=== PATIENT | male | born 1965 | race Caucasian/White ===

== ENCOUNTER 2017-05-29 08:36 | Emergency (ER) | payer BC, OTHER ==
[~2017-05-29] VITALS: Ht 172.7 cm; Wt 113.4 kg
[~2017-05-29 08:36] MED LIST: ATEN-41 PO; GABA-531 PO
--- NOTE | 2017-05-29 08:42 | NUR ---
Placed in room 3. Placed on case monitor, blood pressure machine and pulse oximeter. To gown for exam. Side rails up. Report given to Cherelle KASPER.
[2017-05-29 08:43] VITALS: BP_SYST 145
--- NOTE | 2017-05-29 08:51 | NUR ---
RESP THERAPIST AT BEDSIDE FOR TREATMENTS
--- NOTE | 2017-05-29 08:51 | NUR ---
DR MIRELES AT BEDSIDE FOR EVALUATION
[2017-05-29] MEDS ORDERED: methylPREDNISolone SOD SUCC/PF 62.5 MG/ML VIAL IVP ONE (09:00)
[2017-05-29] MEDS ORDERED: MAGNESIUM SULFATE 1 GM in NS 50 ML IV ONE (09:00)
[2017-05-29] MEDS ORDERED: ALBUTEROL SULFATE 0.083% 2.5 MG/3 ML VIAL.NEB IH ONE (09:00)
[2017-05-29] MEDS ORDERED: IPRATROPIUM BROM 0.5 MG/2.5 ML VIAL.NEB (ATROVENT) IH ONE (09:00)
[2017-05-29] MEDS ORDERED: cefTRIAXone 1 GM IVPB PREMIX 50 ML IV ONE (09:00)
[2017-05-29] MEDS ORDERED: MAGNESIUM SULFATE 1 GM/2 ML VIAL ONE (09:02)
--- NOTE | 2017-05-29 09:15 | NUR ---
NO CHANGES, RESTING QUIETLY.
[2017-05-29 09:34] LABS: BASOPHILS % (AUTO) 0.3 % (0.0-2.0); EOSINOPHILS # (AUTO) 1.2 K/uL (0.0-0.4); EOSINOPHILS % (AUTO) 10.3 % (0.0-4.0); HEMATOCRIT 41.2 % (36-54); HEMOGLOBIN 13.4 g/dL (14.0-18.0); LYMPHOCYTES # (AUTO) 1.4 K/uL (1.0-5.5); MEAN CORPUSCULAR HEMOGLOBIN 30 pg (27-31); MEAN CORPUSCULAR HGB CONC 33 % (32-36); MEAN CORPUSCULAR VOLUME 93 fL (79.0-98.0); MONOCYTES # (AUTO) 1.3 K/uL (0.0-1.0); MONOCYTES % (AUTO) 11.7 % (1.7-9.3); NEUTROPHILS # (AUTO) 7.5 K/uL (1.8-7.7); NEUTROPHILS % (AUTO) 65.7 % (40.0-70.0); PLATELET COUNT (AUTO) 323 K/uL (130-430); RED BLOOD CELL COUNT(AUTO) 4.45 MIL/uL (4.2-6.2); RED CELL DISTRIBUTION WIDTH 14.9 % (9.0-15.0); WHITE BLOOD COUNT (AUTO) 11.4 K/uL (4.8-10.8)
[2017-05-29 09:48] LABS: CALCIUM 9.5 mg/dL (8.4-11.0); CREATININE 0.9 mg/dL (0.55-1.30); POTASSIUM 4.9 mmol/L (3.5-5.1)
--- NOTE | 2017-05-29 10:40 | NUR ---
DR MIRELES AT BEDSIDE SPEAKING WITH PT.
[2017-05-29 11:10] VITALS: BP_SYST 132
--- NOTE | 2017-05-29 11:11 | NUR ---
Patient does not wish to proceed with medical care recommended by DR MIRELES. Patient given information related to possible complications, up to and including , which could occur as a result of leaving hospital at this time. Patient verbalizes understanding of risks involved leaving against medical advice. Patient has signed AMA form.
--- NOTE | 2017-05-29 11:13 | NUR ---
PT SIGNED OUT AMA AND PRESCRIPTIONS FOR KELFEX, PREDNISONE, ALBUTEROL, AND BACITRACIN GIVEN
== END 2017-05-29 11:10 | disposition left against medical advice (07) ==
LOC: SED 08:36
DX: J45.901 Unspecified asthma with (acute) exacerbation (principal); L97.529 Non-pressure chronic ulcer of other part of left foot with unspecified severity; I10 Essential (primary) hypertension; K21.9 Gastro-esophageal reflux disease without esophagitis
CPT/HCPCS: 36415; 71045; 80048; 83880; 84484; 85025; 85379; 93005; 94640; 96365; 96367; 96375; 99285; J0696; J2930; J3475

== ENCOUNTER 2017-11-03 20:51 | Emergency (ER) | payer OTHER ==
[~2017-11-03] VITALS: Ht 175.3 cm; Wt 68.0 kg
[2017-11-03 20:56] VITALS: BP_SYST 141
[2017-11-03] MEDS ORDERED: NACL 0.9% 1,000 ML IV ONE (21:30)
[2017-11-03] MEDS ORDERED: VANCOMYCIN HCL 1,000 MG in NS 250 ML IV ONE (21:30)
[2017-11-03] MEDS ORDERED: PIPERACILLIN/TAZO 3.375 GM in NS 50 ML IV ONE (21:30)
[2017-11-03] MEDS ORDERED: VANCOMYCIN HCL 1000 MG/VIAL IV ONE (22:18)
[2017-11-03] MEDS ORDERED: PIPERACILLIN/TAZOBACTAM 3.375 GM/VIAL (ZOSYN) IV ONE (22:19)
[2017-11-03 22:25] LABS: BASOPHILS # (AUTO) 0.1 K/uL (0.0-0.2); BASOPHILS % (AUTO) 0.9 % (0.0-2.0); EOSINOPHILS # (AUTO) 0.5 K/uL (0.0-0.4); EOSINOPHILS % (AUTO) 6.4 % (0.0-4.0); HEMATOCRIT 41.2 % (36-54); HEMOGLOBIN 13.9 g/dL (14.0-18.0); LYMPHOCYTES # (AUTO) 2.5 K/uL (1.0-5.5); LYMPHOCYTES % (AUTO) 28.9 % (20.5-51.5); MEAN CORPUSCULAR HEMOGLOBIN 32 pg (27-31); MEAN CORPUSCULAR HGB CONC 34 % (32-36); MEAN CORPUSCULAR VOLUME 95 fL (79.0-98.0); MONOCYTES # (AUTO) 0.9 K/uL (0.0-1.0); MONOCYTES % (AUTO) 10.2 % (1.7-9.3); NEUTROPHILS # (AUTO) 4.5 K/uL (1.8-7.7); NEUTROPHILS % (AUTO) 53.6 % (40.0-70.0); PLATELET COUNT (AUTO) 353 K/uL (130-430); RED BLOOD CELL COUNT(AUTO) 4.36 MIL/uL (4.2-6.2); RED CELL DISTRIBUTION WIDTH 13.4 % (9.0-15.0); WHITE BLOOD COUNT (AUTO) 8.5 K/uL (4.8-10.8)
[2017-11-03 22:36] LABS: CALCIUM 8.9 mg/dL (8.4-11.0); CREATININE 1.16 mg/dL (0.55-1.30); POTASSIUM 4.1 mmol/L (3.5-5.1)
[2017-11-03 22:39] LABS: INR 1.1 (0.80-1.20); PROTHROMBIN TIME 11.4 SECS (9.5-12.5)
[2017-11-03 22:42] LABS: ALBUMIN 3.1 g/dL (3.4-4.8); TOTAL BILIRUBIN 0.6 mg/dL (0.0-1.0)
[2017-11-03 23:11] LABS: BILIRUBIN,URINE NEGATIVE (NEGATIVE); BLOOD, URINE NEGATIVE (NEGATIVE); CLARITY/URINE CLEAR (CLEAR); COLOR,URINE YELLOW (YELLOW); GLUCOSE,URINE NEGATIVE (NEGATIVE); KETONES,URINE TRACE (NEGATIVE); LEUKOCYTE ESTERASE ,URINE NEGATIVE (NEGATIVE); NITRITE, URINE NEGATIVE (NEGATIVE); PROTEIN URINE TRACE (NEGATIVE)
[2017-11-04 00:09] VITALS: BP_SYST 137
== END 2017-11-04 00:09 | disposition home or self-care (01) ==
LOC: SED 20:51
DX: L97.529 Non-pressure chronic ulcer of other part of left foot with unspecified severity (principal); G62.9 Polyneuropathy, unspecified; K21.9 Gastro-esophageal reflux disease without esophagitis; I10 Essential (primary) hypertension
CPT/HCPCS: 36415; 73630; 80053; 81003; 83605; 85025; 85610; 85730; 87040; 93005; 96365; 96366; 96367; 99285; J2543; J3370; J7030

== ENCOUNTER 2017-11-05 20:23 | Emergency (ER) | payer OTHER ==
[~2017-11-05] VITALS: Ht 177.8 cm; Wt 104.3 kg
[2017-11-05 20:27] VITALS: BP_SYST 120
[2017-11-05 21:06] VITALS: BP_SYST 128
== END 2017-11-05 21:06 | disposition home or self-care (01) ==
LOC: SED 20:23
DX: L97.921 Non-pressure chronic ulcer of unspecified part of left lower leg limited to breakdown of skin (principal); K21.9 Gastro-esophageal reflux disease without esophagitis; I10 Essential (primary) hypertension
CPT/HCPCS: 99283

== ENCOUNTER 2018-01-08 21:03 | Inpatient (IN) | payer OTHER ==
[~2018-01-08] VITALS: Ht 177.8 cm; Wt 99.8 kg
[2018-01-08 21:10] VITALS: BP_SYST 150
--- NOTE | 2018-01-08 21:10 | NUR ---
Patient triaged and placed in waiting room. VSS and patient appears in no acute distress at this time. Accompanied by self, awaiting available bed, and MD notified of need for MSE.
--- NOTE | 2018-01-08 21:41 | NUR ---
Patient to ER bed 4 to gown for evaluation. Side rails up. Report given to MAJO AMES.
--- NOTE | 2018-01-08 21:49 | NUR ---
Patient AAOx4, uses a scooter for ambulation. Patient states having a non-healing wound to bottom of left foot for approximately 2 years prior to ER visit. Patient states pain to left foot has worsened gradually. Interior of wound is red, no discoloration noted to outer areas of wound. No tunneling noted. Patient states he has noticed clear and yellow drainage from the wound. Scant clear drainage noted to area at this time. Patient denies any other complaints.
--- NOTE | 2018-01-08 21:51 | NUR ---
ER Dr. Loyola at bedside examining patient.
[2018-01-08] MEDS ORDERED: VANCOMYCIN HCL 1,000 MG in NS 250 ML IV ONE (22:15)
--- NOTE | 2018-01-08 22:20 | NUR ---
# 20 gauge angiocath placed to left AC. Use of asceptic technique. Opsite placed over site. Blood return noted. Blood for lab drawn from site. Flushed with 10 cc of normal saline. No evidence of infiltration noted. Patient tolerated well.
[2018-01-08] MEDS ORDERED: VANCOMYCIN HCL 1000 MG/VIAL IV ONE (22:40)
[2018-01-08] MEDS ORDERED: HYDR-2489 PO (22:44)
--- NOTE | 2018-01-08 22:44 | NUR ---
Medication reconciliation completed with information provided by patient. Any prior medication reconciliation on file was reviewed and corrected.
[2018-01-08 23:09] LABS: BASOPHILS # (AUTO) 0.1 K/uL (0.0-0.2); BASOPHILS % (AUTO) 1.6 % (0.0-2.0); EOSINOPHILS # (AUTO) 0.6 K/uL (0.0-0.4); EOSINOPHILS % (AUTO) 8.4 % (0.0-4.0); HEMATOCRIT 43.9 % (36-54); HEMOGLOBIN 14.1 g/dL (14.0-18.0); LYMPHOCYTES # (AUTO) 2.3 K/uL (1.0-5.5); LYMPHOCYTES % (AUTO) 32.6 % (20.5-51.5); MEAN CORPUSCULAR HEMOGLOBIN 30 pg (27-31); MEAN CORPUSCULAR HGB CONC 32 % (32-36); MEAN CORPUSCULAR VOLUME 95 fL (79.0-98.0); MONOCYTES # (AUTO) 0.6 K/uL (0.0-1.0); MONOCYTES % (AUTO) 7.9 % (1.7-9.3); NEUTROPHILS # (AUTO) 3.4 K/uL (1.8-7.7); NEUTROPHILS % (AUTO) 49.5 % (40.0-70.0); PLATELET COUNT (AUTO) 424 K/uL (130-430); RED BLOOD CELL COUNT(AUTO) 4.63 MIL/uL (4.2-6.2); RED CELL DISTRIBUTION WIDTH 13.2 % (9.0-15.0)
[2018-01-08 23:11] LABS: CREATININE 0.81 mg/dL (0.55-1.30); POTASSIUM 3.1 mmol/L (3.5-5.1)
[2018-01-08 23:16] LABS: ALBUMIN 2.9 g/dL (3.4-4.8); TOTAL BILIRUBIN 0.4 mg/dL (0.0-1.0)
--- NOTE | 2018-01-08 23:23 | NUR ---
Patient is calmly resting in ER bed, no signs of distress noted. Vital signs are within therapeutic range.
--- NOTE | 2018-01-08 23:50 | NUR ---
Patient has new onset of increased heart rate. EKG to be completed per MD order.
[2018-01-09] VITALS (7 sets, daily range): BP systolic 111–151
[2018-01-09] MEDS ORDERED: DILTIAZEM HCL 125 MG in D5W 100 ML IV ONE ×2
[2018-01-09] MEDS ORDERED: ENOXAPARIN SODIUM 80 MG/0.8 ML SYRINGE SUBCUT ONE
[2018-01-09] MEDS ORDERED: DILTIAZEM HCL 25 MG/5 ML VIAL IVP ONE
[2018-01-09] MEDS ORDERED: NON-FORMULARY MEDICATION (Hydrocodone/Acetaminophen (Norco 10-325 Tablet) 1 EACH) PO PRN (00:15)
--- NOTE | 2018-01-09 00:23 | NUR ---
Patient has not been admitted to telemetry unit due to elevated heart rate. Will continue to monitor the patient and will transport when heart rate is stable.
[2018-01-09] MEDS ORDERED: DIPHENHYDRAMINE INJ 50 MG/ML VIAL IVP PRN (00:30)
[2018-01-09] MEDS ORDERED: ONDANSETRON HCL 4 MG/2 ML VIAL IVP PRN (00:30)
[2018-01-09] MEDS ORDERED: ACETAMINOPHEN 325 MG TABLET PO PRN (00:30)
[2018-01-09] MEDS ORDERED: DILTIAZEM HCL 125 MG in D5W 100 ML IV SCH ×2 (00:30→05:00)
[2018-01-09] MEDS ORDERED: MORPHINE 2 MG/ML INJ. SYRINGE IVP PRN (00:30)
[2018-01-09] MEDS ORDERED: LORazepam 1 MG TABLET PO PRN (00:30)
[2018-01-09] MEDS ORDERED: TEMAZEPAM 15 MG CAPSULE PO PRN (00:30)
--- NOTE | 2018-01-09 00:38 | NUR ---
Patient's heart rate has decreased to 86 beats per minute. MD notified, EKG to be completed.
--- NOTE | 2018-01-09 00:41 | NUR ---
Per MD Dr. Loyola, patient's heart rhythm has converted to normal sinus rhythm.
[2018-01-09] MEDS ORDERED: DILTIAZEM HCL 240 MG CAP.SR.24H PO ONE (00:45)
--- NOTE | 2018-01-09 00:49 | NUR ---
Patient will be admitted to care of Dr. Dent. Admitted to tele unit. Will go to room 135. Belongings list completed. Summary report printed. Report given to Marlo KASPER at bedside.
--- NOTE | 2018-01-09 00:49 | NUR ---
ADMIT NOTE Received pt from ER to the floor with a diagnosis of NEW ONSET OF AF AND LEFT FOOT CELLULITIS. Admission process initiated. patient oriented to pain management, safety and call light-teach back done.
[2018-01-09] MEDS ORDERED: POTASSIUM CHLORIDE 20 MEQ/PKT PACKET PO ONE (01:00)
--- NOTE | 2018-01-09 01:00 | NUR ---
INITIAL ADMISSION NOTE Patient resting on the bed. No acute distress. AAO x 4. Skin warm and dry to touch. SL intact to LAC, no redness, no swelling, patent. Discussed the safety issue, use call light when need help, and plan of care, verbally understanding. Family at bedside. Safety measure maintained. Call light within reached. Bed locked in low position, side rails up. Will continue to monitor.
[2018-01-09 01:09] LABS: INR 1.1 (0.80-1.20); PROTHROMBIN TIME 11.3 SECS (9.5-12.5)
[2018-01-09] MEDS ORDERED: AMPICILLIN SODIUM/SULBACTAM NA 3 GM VIAL ONE (01:15)
[2018-01-09 01:29] LABS: FREE T4 (FREE THYROXINE) 0.8 ng/dL (0.6-1.6); THYROID STIMULATING HORMONE 0.67 uIu/mL (0.34-4.82)
[2018-01-09] MEDS ORDERED: THIAMINE HCL 100 MG TABLET PO ONE (01:45)
[2018-01-09] MEDS: THIAMINE HCL 100 MG TABLET PO SCH ×2 (02:09→09:07)
[2018-01-09] MEDS: AMPICILLIN SODIUM/SULBACTAM NA 3 GM in NS 100 ML IV SCH ×4 (02:09→18:22)
[2018-01-09] MEDS: MORPHINE 4 MG/ML INJ. SYRINGE IVP PRN ×4 (02:29→20:17)
--- NOTE | 2018-01-09 02:30 | NUR ---
MORPHINE GIVEN Patient c/o left foot pain 10/12, Morphine 4mg IVP given as ordered. No acute distress. Safety measure maintained. Bed ;locked in low position, side rails up. Call light within reached. Refused bed alarm, risk and benefit explained, verbally understanding. Continue to monitor.
[2018-01-09] MEDS: DILTIAZEM HCL 25 MG/5 ML VIAL IVP PRN ×2 (04:00→07:39)
--- NOTE | 2018-01-09 04:11 | NUR ---
CARDIZEM GIVEN OU=[id number], B/P=126/96, Cardizem 20mg IVP given as ordered. No acute distress. Denied of chest pain. Safety measure maintained. Bed locked in low position, side rails up. Call light within reached. Continue to monitor.
--- NOTE | 2018-01-09 04:46 | NUR ---
MANNY FERNANDES PAGED DR. PAULINO IN REGARDS TO PATIENT'S CARDIAC RHYTHM.
--- NOTE | 2018-01-09 04:56 | NUR ---
QQ=[id number], CALLED DR. PAULINO Called Dr. Paulino, reported to Dr. Paulino Cardizem 20mg IVP given at 0400. However GP=[address] Paulino with order Digoxin 0.5mg IVP x1, then transfer to ICU and Cardizem 15mg/hr IV drip. Order read back and okay to
[2018-01-09] MEDS ORDERED: DIGOXIN 0.5 MG/2 ML AMP IVP ONE (05:00)
--- NOTE | 2018-01-09 05:05 | NUR ---
CONSULTATION PAGED/CALLED Reason for Consultation: CELLULITIS Person Who was Notified: RAYNE Consulting Physician: Small Business Representative Specialty: ID Ordering Physician:
--- NOTE | 2018-01-09 05:47 | NUR ---
REFUSED TO TRANSFER Patient refused to transfer to ICU, risk and benefit explained, verbally understanding. [id number] at this time, denied of chest pain/discomfort. Will follow up and continue to monitor.
--- NOTE | 2018-01-09 05:48 | NUR ---
CONSULTATION PAGED/CALLED Reason for Consultation: AF Person Who was Notified: RAYNE Consulting Physician: DR. LI Washing Machine Mechanic Specialty: CARDIO Ordering Physician: DR. PAULINO
--- NOTE | 2018-01-09 05:51 | NUR ---
CALLED DR. PAULINO REGARDING PATIENT REFUSED TO TRANSFER, WAITED TO CALL BACK.
--- NOTE | 2018-01-09 06:31 | NUR ---
TALKED TO PATIENT STILL REFUSED TO TRANSFER. DR. PAULINO STILL NOT CALLED BACK YET Patient sitting on the edge of the bed. No acute distress. Respiration even and unlabored. Denied of chest pain/discomfort. Denied of headache/dizziness. Per patient he had episode of heart rate up and down and sometime he felt chest discomfort, took Aspirin and Tylenol at home and relaxed will relieved. Patient relax and clam at this time. HR=81 BPM shown in monitor. Will follow up.
--- NOTE | 2018-01-09 06:55 | NUR ---
CLOSING NOTE Patient sitting on the edge of bed. No acute distress. Respiration even and unlabored. Son at bedside. HR remained 80s at this time. Skin warm and dry to touch. Denied of chest pain/discomfort. Denied of headache/dizziness. C/O back and left foot pain 11/12, Morphine 4mg IVP given as ordered. Patient with HR from 80s-150s the whole night. Safety measure maintained. Bed locked in low position, side rails up. Call light within reached. Will endorse to morning shift nurse.
[2018-01-09 07:00] LABS: CHOLESTEROL 138 mg/dL (<200); HDL CHOLESTEROL 33 mg/dL (>45); LDL CHOLESTEROL 83 mg/dL (<100); TRIGLYCERIDES 169 mg/dL (30-150)
--- NOTE | 2018-01-09 07:22 | NUR ---
DR. PAULINO CALLED BACK Reported to Dr. Paulino patient refused to transfer to ICU. Per patient he had episode at home before. Denied chest pain/discomfortable. Denied of headache/dizziness. HR remained 80s in a while. However, QR=[id number] again at this time. Dr. Paulino with order to D/C transfer and Nina drip and stated "Just give morning dose of Beta-brenden now". Endorse to morning shift nurse Cathie.
--- NOTE | 2018-01-09 07:55 | NUR ---
SINUS RHYTHM PATIENT CONVERTED TO SINUS RHYTHM, HEART RATE OF 67.
--- NOTE | 2018-01-09 07:55 | NUR ---
INITIAL NOTE RECEIVED PT IN BED, NO S/S OF DISTRESS OR SOB NOTED, PT HAS NO C/O PAIN AT THIS TIME, PT IN STABLE CONDITION, PT AAOX4, VERBAL. IV CATHETER PATENT, NO SIGNS OF INFECTION OR INFILTRATION NOTED. BED AT LOWEST POSITION, CALL LIGHT WITHIN REACH, WILL CONTINUE TO MONITOR PT FOR ANY CHANGES, SAFETY AND FALL PRECAUTIONS IN PLACE. PT HAS NO C/O CHEST PAIN, NO HEADACHE OR DIZZINESS. Addendum: 01/09/18 at 0931 by Cathie Hernandez RN TIME TO BE 0745
[2018-01-09] MEDS ORDERED: ATENOLOL 50 MG TABLET (TENORMIN) PO SCH (09:00)
[2018-01-09] MEDS: VITAMIN B COMPLEX WITH C TAB/CAP PO SCH (09:07)
[2018-01-09] MEDS: GABAPENTIN 300 MG CAPSULE PO SCH ×3 (09:07→20:17)
[2018-01-09] MEDS: CHOLECALCIFEROL (VITAMIN D3) 2,000 UNIT TABLET PO SCH (09:07)
[2018-01-09] MEDS: APIXABAN 2.5 MG TABLET PO SCH ×2 (09:08→20:20)
--- NOTE | 2018-01-09 09:57 | NUR ---
Nutrition Update Naun Scale 16 noted. Pt admitted for new onset AF and L foot cellulitis. Diet: cardiac BMI: 31.6 kg/m2 RD to follow per nutrition care standards.
--- NOTE | 2018-01-09 10:10 | NUR ---
MD ROUNDS DR JEN BARRIENTOS, AWARE OF PATIENT'S CONDITION, AWARE THAT PATIENT'S HEART RATE IS NOW BRADYCARDIA AT 54. PT ASYMPTOMATIC, NO HEADACHE OR DIZZINESS.
--- NOTE | 2018-01-09 10:20 | NUR ---
ROUNDS PT IN BED, NO S/S OF DISTRESS OR SOB NOTED, PT HAS NO C/O PAIN AT THIS TIME, PT IN STABLE CONDITION, PT WATCHING TV, WILL CONTINUE TO MONITOR PT FOR ANY CHANGES. WOUND CARE PERFORMED.
--- NOTE | 2018-01-09 12:55 | NUR ---
ROUNDS PT IN BED, NO S/S OF DISTRESS OR SOB NOTED, PT HAS NO C/O PAIN AT THIS TIME, PT IN STABLE CONDITION, PT WATCHING TV, WILL CONTINUE TO MONITOR PT FOR ANY CHANGES.
--- NOTE | 2018-01-09 14:30 | NUR ---
MD ROUNDS DR JEFFERSON BARRIENTOS, AWARE OF PATIENT'S CONDITION, NEW ORDERS WRITTEN, ORDERED FOR A POST OPERATIVE SHOE AND ONE WAS PROVIDED TO PT FOR HIS LEFT FOOT.
--- NOTE | 2018-01-09 18:32 | NUR ---
CLOSING NOTE PT IN BED, NO S/S OF DISTRESS OR SOB NOTED, PT HAS NO C/O PAIN AT THIS TIME, PT IN STABLE CONDITION, PT AAOX4, VERBAL. IV CATHETER PATENT, NO SIGNS OF INFECTION OR INFILTRATION NOTED. BED AT LOWEST POSITION, CALL LIGHT WITHIN REACH, WILL ENDORSE CARE OF PT TO INCOMING SHIFT, SAFETY AND FALL PRECAUTIONS IN PLACE. PT HAS NO C/O CHEST PAIN, NO HEADACHE OR DIZZINESS.
--- NOTE | 2018-01-09 18:40 | NUR ---
ROUNDS PATIENT RESTING COMFORTABLY IN BED, NOT IN DISTRESS, VITALS STABLE. ASSESSMENT DONE AND DOCUMENTED. SEE FLOWSHEET. NEEDS ATTENDED TO. SAFETY AND FALL PRECAUTION MEASURES IN PLACED. BED IN LOW AND LOCKED POSITION. BED ALARM ON. BED IN LOWEST POSITION. CALL LIGHT PLACED WITHIN REACH.
[2018-01-09] MEDS ORDERED: VANCOMYCIN HCL 2,000 MG in NS 250 ML IV SCH (19:00)
[2018-01-09] MEDS ORDERED: VANCOMYCIN HCL 1000 MG/VIAL IV ONE (20:48)
--- NOTE | 2018-01-09 21:15 | NUR ---
MEDICATION DUE MEDICATIONS GIVEN SCHEDULED, TOLERATED WELL. WILL CONTINUE TO MONITOR.
--- NOTE | 2018-01-10 00:15 | NUR ---
PATIENT RESTING: Patient resting quietly. No acute distress noted. Vital signs within normal range.
[2018-01-10] MEDS: AMPICILLIN SODIUM/SULBACTAM NA 3 GM in NS 100 ML IV SCH ×4 (00:37→18:50)
[2018-01-10] MEDS: MORPHINE 4 MG/ML INJ. SYRINGE IVP PRN ×4 (00:45→20:57)
--- NOTE | 2018-01-10 02:28 | NUR ---
ROUNDS PATIENT ASLEEP, NO SOB NOR PAIN AND DISCOMFORT NOTED, WILL CONTINUE TO MONITOR.
--- NOTE | 2018-01-10 04:13 | NUR ---
ROUNDS PATIENT ASLEEP, VITALS STABLE, NO PAIN AND DISCOMFORT NOTED. WILL CONTINUE TO MONITOR.
--- NOTE | 2018-01-10 06:18 | NUR ---
CLOSING NOTES PATIENT STILL ASLEEP, VITALS STABLE, NO SIGNS OF ANY PAIN AND DISCOMFORT NOTED. ALL NEEDS ATTENDED TO. SAFETY MEASURES MAINTAINED. CALL LIGHT PLACED WITHIN REACH.
[2018-01-10 08:00] VITALS: BP_SYST 157
--- NOTE | 2018-01-10 08:00 | NUR ---
Opening Note/Refuse bed alarm received report from nightclub manager RN, pt resting in bed, A&Ox4, respirations even and unlabored on room air, pt denies any chest pain, pain controlled at this time, no acute distress noted, IV catheter found intact at bedside, pt states that it fell out, will place new IV access this AM, pt educated on use of call light and asked to call for assistance, pt verbalized understanding, call light in reach, pt educated on use of bed alarm for pt safety, pt refusing bed alarm, bed in low position, fall and aspiration precautions in place.
--- NOTE | 2018-01-10 08:43 | NUR ---
IV RE-INSERTION: IV cannula accidentally removed. Restarted on right forearm g.22. Successful after 2 attempts. Will observe for any signs of infiltration.
--- NOTE | 2018-01-10 08:57 | NUR ---
MD Rounds Dr. Santamaria at bedside examining pt.
[2018-01-10] MEDS ORDERED: METOPROLOL SUCCINATE 50 MG TAB.SR.24H (TOPROL XL) PO ONE (09:00)
[2018-01-10] MEDS ORDERED: POTASSIUM CHLORIDE 20 MEQ TAB.PRT.SR PO ONE (09:15)
[2018-01-10] MEDS: VANCOMYCIN HCL 1,750 MG in NS 500 ML IV SCH ×2 (09:40→20:55)
[2018-01-10] MEDS: VITAMIN B COMPLEX WITH C TAB/CAP PO SCH (09:41)
[2018-01-10] MEDS: CHOLECALCIFEROL (VITAMIN D3) 2,000 UNIT TABLET PO SCH (09:41)
[2018-01-10] MEDS: GABAPENTIN 300 MG CAPSULE PO SCH ×3 (09:41→20:56)
[2018-01-10] MEDS: THIAMINE HCL 100 MG TABLET PO SCH (09:41)
[2018-01-10] MEDS: APIXABAN 2.5 MG TABLET PO SCH ×2 (09:44→20:57)
--- NOTE | 2018-01-10 09:50 | NUR ---
Pain Management/Medication pt complaint of pain 10/12 to lower back, pt educated on use and side effects of PRN pain medication and all medications, pt verbalized understanding, tolerated medication administration well, vital signs stable, no acute distress noted, fall and aspiration precautions in place.
[2018-01-10] MEDS ORDERED: SOTALOL HCL 80 MG TABLET PO ONE (10:00)
--- NOTE | 2018-01-10 10:15 | NUR ---
Medication pt educated on medication use and side effects, pt verbalized understanding, tolerated medication administration well, no acute distress noted, fall and aspiration precautions in place.
--- NOTE | 2018-01-10 11:13 | NUR ---
Dietitian Recommendations * Recommend cardiac diet, Ensure Enlive BID (oral supplement provides an additional 700 kcal/day and 40 gm protein/day) LP, RD Please refer to Nutrition Assessment for details.
--- NOTE | 2018-01-10 11:36 | NUR ---
to MRI pt taken to MRI via wheelchair, pt stable.
[2018-01-10 12:00] VITALS: BP_SYST 134
--- NOTE | 2018-01-10 13:00 | NUR ---
Back from MRI/Called Pharmacy pt back from MRI, no acute distress noted, pt stable, called pharmacy for dose of unasyn, will administer when available, fall and aspiration precautions in place.
--- NOTE | 2018-01-10 14:40 | NUR ---
Pain Management/Medication pt complaint of pain 10/12 to lower back, pt educated on use and side effects of PRN medication and all medications, pt verbalized understanding, tolerated medication administration well, no acute distress noted, pt educated on use of bed alarm for pt safety, pt refusing bed alarm, pt educated on use of call light and asked to call for assistance, pt verbalized understanding, call light in reach, bed in low position, fall and aspiration precautions in place.
[2018-01-10 15:16] VITALS: BP_SYST 160
--- NOTE | 2018-01-10 15:50 | NUR ---
Spoke with spoke with Dr. Walker, made MD aware of MRI left lower extremity results.
--- NOTE | 2018-01-10 16:08 | NUR ---
PAGED PAGED KIMBERLY PEREZ AT [phone] SPOKE WITH NGHIA.
--- NOTE | 2018-01-10 17:00 | NUR ---
RN Rounds pt resting in bed, respirations even and unlabored, pt reports pain controlled at this time, no acute distress noted, fall and aspiration precautions in place.
--- NOTE | 2018-01-10 19:20 | NUR ---
Closing Note/Refuse bed alarm pt resting in bed, A&Ox4, respirations even and unlabored on room air, pt reports pain controlled at this time, no acute distress noted, IV site clean, dry, and intact, pt educated on use of call light and asked to call for assistance, pt verbalized understanding, call light in reach, pt educated on use of bed alarm for pt safety, pt refusing bed alarm, bed in low position, fall and aspiration precautions in place, care endorsed to Kendra KASPER.
--- NOTE | 2018-01-10 19:25 | NUR ---
OPENING NOTE Patient resting on the bed. No acute distress. Respiration even and unlabored. No c/o pain at this time. AAO x 4. Skin warm and dry to touch. SL intact to RFA, no redness, no swelling, patent. Discussed the safety issue, use call light when need help, and plan of care, verbally understanding. Safety measure maintained. Bed locked in low position, side rails up. Call light within reached. Refused bed alarm, risk and benefit explained, verbally understanding. Will continue to monitor.
[2018-01-10 19:55] VITALS: BP_SYST 154
[2018-01-10] MEDS: SOTALOL HCL 80 MG TABLET PO SCH (20:56)
--- NOTE | 2018-01-10 20:58 | NUR ---
MORPHINE GIVEN Patient c/o left foot pain 12/13, Morphine 4mg IVP given as ordered. No acute distress. Safety measure maintained. Bed locked in low position, side rails up. Call light within reached. Continue to monitor.
--- NOTE | 2018-01-10 23:00 | NUR ---
ROUND Patient resting on the bed with eyes closed. No acute distress. Safety measure maintained. Bed locked in low position, side rails up. Call light within reached. Continue to monitor.
[2018-01-11] VITALS: BP_SYST 146
--- NOTE | 2018-01-11 00:14 | NUR ---
CONSULTATION PAGED/CALLED Reason for Consultation: POSSIBLE OSTEOMYELITIS Person Who was Notified: CHERYL Consulting Physician: JORDAN, DOCTOR GOODE IS CORE DRILLER Crotch Piece Baster Specialty: ORTHO Ordering Physician: JEFFERSON
[2018-01-11] MEDS: AMPICILLIN SODIUM/SULBACTAM NA 3 GM in NS 100 ML IV SCH ×4 (00:23→18:19)
--- NOTE | 2018-01-11 00:30 | NUR ---
MIDLINE CONSENT SIGNED Patient signed consent for midline insertion, stated that doctor explained to him and understanding. Informed to warehouse distribution manager will follow up.
--- NOTE | 2018-01-11 00:56 | NUR ---
AMBULATED TO BATHROOM IN STEADY GAIT.
--- NOTE | 2018-01-11 02:55 | NUR ---
ROUND Patient resting on the bed with eyes closed. No acute distress. Respiration even and unlabored. Safety measure maintained. Bed locked in low position, side rails up. Call light within reached. Continue to monitor.
--- NOTE | 2018-01-11 04:15 | NUR ---
ROUND Patient resting on the bed with eyes closed. No acute distress. Safety measure maintained. Call light within reached. Bed locked in low position, side rails up. Continue to monitor.
[2018-01-11] MEDS: MORPHINE 4 MG/ML INJ. SYRINGE IVP PRN ×5 (06:00→23:12)
--- NOTE | 2018-01-11 06:00 | NUR ---
MORPHINE GIVEN Patient c/o left foot pain 11/12, Morphine 4mg IVP given as ordered. No acute distress. Respiration even and unlabored noted. Safety measure maintained. Bed locked in low position, side rails up. Call light within reached. Continue to monitor.
--- NOTE | 2018-01-11 06:40 | NUR ---
CLOSING NOTE Patient resting on the bed. No acute distress. Respiration even and unlabored. Skin warm and dry to touch. SL intact to RFA, no redness, no swelling, patent. All needs met. Hourly rounding during shift. Safety measure maintained. Bed locked in low position, side rails up. Call light within reached. Refused bed alarm, risk and benefit explained, verbally understanding. Will endorse to morning shift nurse.
[2018-01-11 06:52] LABS: BASOPHILS # (AUTO) 0.1 K/uL (0.0-0.2); BASOPHILS % (AUTO) 1.8 % (0.0-2.0); EOSINOPHILS # (AUTO) 0.6 K/uL (0.0-0.4); EOSINOPHILS % (AUTO) 9.3 % (0.0-4.0); HEMATOCRIT 41.3 % (36-54); HEMOGLOBIN 13.2 g/dL (14.0-18.0); LYMPHOCYTES # (AUTO) 1.9 K/uL (1.0-5.5); LYMPHOCYTES % (AUTO) 29.7 % (20.5-51.5); MEAN CORPUSCULAR HEMOGLOBIN 30 pg (27-31); MEAN CORPUSCULAR HGB CONC 32 % (32-36); MEAN CORPUSCULAR VOLUME 94 fL (79.0-98.0); MONOCYTES # (AUTO) 0.5 K/uL (0.0-1.0); MONOCYTES % (AUTO) 7.3 % (1.7-9.3); NEUTROPHILS # (AUTO) 3.3 K/uL (1.8-7.7); NEUTROPHILS % (AUTO) 51.9 % (40.0-70.0); PLATELET COUNT (AUTO) 373 K/uL (130-430); RED BLOOD CELL COUNT(AUTO) 4.39 MIL/uL (4.2-6.2); RED CELL DISTRIBUTION WIDTH 13.7 % (9.0-15.0); WHITE BLOOD COUNT (AUTO) 6.4 K/uL (4.8-10.8)
[2018-01-11 07:00] LABS: ALBUMIN 2.5 g/dL (3.4-4.8); CALCIUM 8.9 mg/dL (8.4-11.0); CREATININE 0.94 mg/dL (0.55-1.30); POTASSIUM 4.1 mmol/L (3.5-5.1); TOTAL BILIRUBIN 0.4 mg/dL (0.0-1.0)
[2018-01-11 08:00] VITALS: BP_SYST 155
--- NOTE | 2018-01-11 08:00 | NUR ---
initial notes rec patient asleep but arousable to stimuli. ivl on the r forearm intact. no infiltration noted. l foot cellulitis noted and elevated on a pillow.resp easy and unlabored, no sob noted. bed in low position and side rails up and loked. call light iwhtn reached and knows when to call for assistance.
[2018-01-11] MEDS: VANCOMYCIN HCL 1,750 MG in NS 500 ML IV SCH ×2 (10:05→21:31)
[2018-01-11] MEDS: GABAPENTIN 300 MG CAPSULE PO SCH ×3 (10:05→21:32)
[2018-01-11] MEDS: CHOLECALCIFEROL (VITAMIN D3) 2,000 UNIT TABLET PO SCH (10:06)
[2018-01-11] MEDS: APIXABAN 2.5 MG TABLET PO SCH (10:06)
[2018-01-11] MEDS: THIAMINE HCL 100 MG TABLET PO SCH (10:06)
[2018-01-11] MEDS: VITAMIN B COMPLEX WITH C TAB/CAP PO SCH (10:07)
[2018-01-11] MEDS: SOTALOL HCL 80 MG TABLET PO SCH ×2 (10:30→21:32)
[2018-01-11] MEDS: METOPROLOL SUCCINATE 50 MG TAB.SR.24H (TOPROL XL) PO SCH (10:31)
--- NOTE | 2018-01-11 10:45 | NUR ---
rounds seen by dr beltran and stated okay for the midline to be inserted. awaiting for picc line nurse to come. iv abx in progress. no infiltration noted. call light within reached, pt ambulates to the br with steady gait. no sob noted.
--- NOTE | 2018-01-11 12:40 | NUR ---
rounds picc line nurse at bedside and inserting a midline at bedside. no sob noted.
--- NOTE | 2018-01-11 14:30 | NUR ---
rounds midline was inserted by picc line nurse on the left upper arm. no infiltration noted.
--- NOTE | 2018-01-11 15:00 | NUR ---
DC Planning: Met with pt. and dr. Villalba at bedside for dcp discussion. The pt. is waiting for dr. Montague for pain management consultation. Dr. Villalba plans for possible surgical procedure and getting special made shoe for the effected foot. Per MD , the pt is not to walk on or put any pressure on the right foot. Day to discharge is pending at this time. CM to verify with dr. Villalba for dc clearance. >> Upon discharge CM to arrange: 1. an appointment at [facility] for wound care with possible hyperbaric oxygen treatment and 2. arranged out patient iv abx with [facility]/dr. Walker office . Addendum: 01/11/18 at 1529 by Nitish Payne RN >> Correction note: the pt is not to walk on or put any pressure on the LEFT foot.
[2018-01-11 15:06] VITALS: BP_SYST 165
--- NOTE | 2018-01-11 16:00 | NUR ---
rounds dr cruz came and saw patient and with orders.
--- NOTE | 2018-01-11 16:15 | NUR ---
WOUND EVALUATION: Wound Consult received from Dr. Dent. Thank you, Dr. Dent, for the consult. Patient received in a Raymon Bed with a mattress, awake, alert, and oriented. Patient is unable to turn independently. Naun Score is an 18. Past Medical History: Hypertension, chronic back pain, lower back surgery, total knee replacement. Recent Labs: WBC 6.4, RBC 4.39, hemoglobin 13.2, hematocrit 41.3, ESR 34, BUN 9, creatinine 0.94, GFR 89, alkaline phosphatase 243, albumin 2.5. Intrinsic factors that delay wound healing: Hypoalbuminemia. Extrinsic factors that delay wound healing: Decreased mobility. Microbiology: Blood culture results 2 in progress. MRSA screen results negative. Wound culture positive for Staphylococcus aureus. Left foot has Charcot changes. Wound Assessment: 1. Left plantar foot over metatarsal heads 1-3: Acute on chronic nonhealing ulcer, present on admission. Wound bed has 70% pink tissue, 20% yellow tissue, 10% red tissue. No odor, no drainage. Periwound is callused. Undermining present from 10:00 to 1:00, measuring 0.4 cm. Wound measures 3.0 cm x 4.0 cm x 0.5 cm. 2. Left dorsal foot over MTP junction of third metatarsal head: Wound, present on admission. Wound bed has 85% pink tissue, 10% yellow tissue, 5% red tissue. No odor, scant purulent drainage. Wound measures 0.9 cm x 1.2 cm. Recommend: Cleanse wounds with normal saline. Place moisture barrier cream onto jeyson-wounds. Apply Venelex ointment onto wound beds. Cover with foam dressings. Wrap with Angela wrap. Perform wound care daily, and as needed for dressing soiling or dislodgement. Also recommend: Encourage and assist patient as needed with repositioning every 2 hours with pillow support, and off-load pressure areas with pillows for pressure re-distribution. Offload, elevate and float bilateral heels with pillows. Perform skin care and monitor skin integrity Q shift. Use moisture barrier cream on buttocks and other moisture susceptible areas QID and as needed for soiling. Recommend patient maintain nonweightbearing status on left foot. Also recommend total noncontact cast or offloading footwear. Dr. Villalba is on surgical consult.
[2018-01-11] MEDS ORDERED: BALSAM PERU/CASTOR OIL 60 GM OINT...G. TP ONE (16:45)
--- NOTE | 2018-01-11 18:30 | NUR ---
closing notes ambulates at intervals with his scooter after seen by dr cruz. call light within reached. no sob noted.
--- NOTE | 2018-01-11 19:30 | NUR ---
OPENING NOTE Received report from Tiana, Patient resting in bed awake, alert, oriented x4. Breathing unlabored and even on room air. No signs of distress, no needs at this time. Fall and safety precautions in place. Bed in lowest position, brake on, call light within reach. IV access saline locked. Will continue to monitor.
[2018-01-11 20:00] VITALS: BP_SYST 150
--- NOTE | 2018-01-11 23:12 | NUR ---
Pt c/o pain. Administered PRN morpine 4 mg IVP as ordered. Educated pt on safety and side effects. Encouraged call for assist.
[2018-01-12] MEDS: AMPICILLIN SODIUM/SULBACTAM NA 3 GM in NS 100 ML IV SCH ×4 (00:04→17:49)
--- NOTE | 2018-01-12 00:05 | NUR ---
New IV abx hung
[2018-01-12 00:20] VITALS: BP_SYST 174
--- NOTE | 2018-01-12 03:08 | NUR ---
Patient resting in bed with eyes closed. Breathing unlabored and even on room air. No signs of distress, no needs at this time. Fall and safety precautions in place. Bed in lowest position, brake on, call light within reach. Will continue to monitor.
[2018-01-12] MEDS: MORPHINE 4 MG/ML INJ. SYRINGE IVP PRN ×4 (04:53→18:42)
--- NOTE | 2018-01-12 04:55 | NUR ---
Pt c/o pain. Administered PRN morphine 4mg IVP as ordered. Educated patient on safety and side effects. Encouraged call for assist.
--- NOTE | 2018-01-12 06:27 | NUR ---
Med pass. IV abx hung. Flu vaccine administered IM
--- NOTE | 2018-01-12 07:31 | NUR ---
CLOSING NOTE Gave report to Raquel. Patient resting in bed with eyes closed. Breathing unlabored and even on room air. No signs of distress, no needs at this time. Fall and safety precautions in place. Bed in lowest position, brake on, call light within reach. Endorsed care to day shift nurse.
[2018-01-12 08:00] VITALS: BP_SYST 167
--- NOTE | 2018-01-12 08:00 | NUR ---
AM ROUNDS: RECEIVED PATIENT LYING ON THE BED. STABLE. BEDSIDE REPORT GIVEN BY NIGHT NURSE NATALIE. CALL LIGHT WITHIN REACH. BED LOCKED AT LOWEST POSITION. LEFT FOOT DRESSING,CLEAN AND DRY.
--- NOTE | 2018-01-12 08:30 | NUR ---
Clerical Coordinator: DCP called Al at [employer] [facility] (f [phone] p [phone]) regarding pt foot brace. Al stated Vaishnavi was the custom fit person she will contact CM. Vaishnavi (f [phone] p [phone]) [email or web address], Vaishnavi requested progress notes to verify cost to pt. DCP faxed progress notes, Per Vaishnavi she will contact CM
[2018-01-12] MEDS: VANCOMYCIN HCL 1,500 MG in NS 250 ML IV SCH ×2 (09:05→20:38)
[2018-01-12] MEDS: CHOLECALCIFEROL (VITAMIN D3) 2,000 UNIT TABLET PO SCH (09:06)
[2018-01-12] MEDS: VITAMIN B COMPLEX WITH C TAB/CAP PO SCH (09:06)
[2018-01-12] MEDS: THIAMINE HCL 100 MG TABLET PO SCH (09:07)
[2018-01-12] MEDS: GABAPENTIN 300 MG CAPSULE PO SCH ×3 (09:07→20:34)
[2018-01-12] MEDS: SOTALOL HCL 80 MG TABLET PO SCH ×2 (09:07→20:37)
[2018-01-12] MEDS: BALSAM PERU/CASTOR OIL 60 GM OINT...G. TP SCH (09:08)
[2018-01-12] MEDS: METOPROLOL SUCCINATE 50 MG TAB.SR.24H (TOPROL XL) PO SCH (09:08)
--- NOTE | 2018-01-12 10:00 | NUR ---
Rn rounds: Patient to the toilet with scooter assistance,voided. Then back to bed.Stable.
--- NOTE | 2018-01-12 12:00 | NUR ---
meal: called dietary and ordered turkey sandwich per patient's request.sitting on the bed ,eating lunch.
[2018-01-12 12:29] VITALS: BP_SYST 155
--- NOTE | 2018-01-12 14:04 | NUR ---
PAGED: CALLED DR PAULINO'S EXCHANGE AND SPOKE WITH ROEL.
--- NOTE | 2018-01-12 14:14 | NUR ---
PAIN MEDS: C/O LEFT FOOT PAIN AND DUE IV PAIN MEDS GIVEN PER REQUEST. NO COMPLICATIONS NOTED.
--- NOTE | 2018-01-12 15:00 | NUR ---
SHOWER: OBTAINED ORDER FROM DR PAULINO PATIENT MAY SHOWER TOLERATED.PATIENT WENT SHOWER,GARNISHER AND SN STAND BY ASSIST. SHOWERED DONE,PATIENT TO THE ROOM,STABLE.
--- NOTE | 2018-01-12 16:01 | NUR ---
WOUND CARE: CLEANSE NS LEFT ANTERIOR AND POSTERIOR FOOT,PAT DRY,VENELEX OINTMENT TO WOUND BED AND SURE PREP ON DELTA WOUND AREA AND OPTI FOAM OVER IT AND WRAPPED WITH JASON WRAP.
--- NOTE | 2018-01-12 16:05 | NUR ---
Discharge Planning: DCP faxed referral to [facility] (f [phone] p [phone]). DCP to follow up.
[2018-01-12 16:40] VITALS: BP_SYST 155
--- NOTE | 2018-01-12 18:45 | NUR ---
PAIN MEDS: C/O LEFT FOOT PAIN AND DUE IV PAIN MEDS GIVEN PER REQUEST. NO PROBLEM.
--- NOTE | 2018-01-12 18:52 | NUR ---
END OF SHIFT: NOT IN ANY DISTRESS. MST GUIDELINES MET THROUGHOUT THE SHIFT.
[2018-01-12 19:14] VITALS: BP_SYST 141
--- NOTE | 2018-01-12 19:33 | NUR ---
Initial Notes Received patient in bed awake alert oriented x4. No c/o pain and no s/s of any distress noted. LUE midline noted patent and with good blood return. Noted BLE edema and redness. All extremities are strong, needs assistance to ambulate. Discuss plan of care with patient and verbalize understanding. Call light in reach, will cont to monitor.
--- NOTE | 2018-01-12 21:14 | NUR ---
Rounds Patient is resting in bed with children around at this time. No c/o pain and no s/s of any distress noted. Call light in reach, will cont to monitor.
--- NOTE | 2018-01-12 23:14 | NUR ---
Rounds Patient is resting comfortably in bed at this time. No c/o pain and no s/s of any distress noted. Call light in reach, will cont to monitor.
[2018-01-13] MEDS: AMPICILLIN SODIUM/SULBACTAM NA 3 GM in NS 100 ML IV SCH ×4 (00:13→17:22)
[2018-01-13] MEDS: MORPHINE 4 MG/ML INJ. SYRINGE IVP PRN ×6 (00:15→21:24)
[2018-01-13 00:20] VITALS: BP_SYST 156
--- NOTE | 2018-01-13 04:05 | NUR ---
Dressing change Cleanse wound to L foot with N/S pat dry, apply Venelex then cover optifoam. Tolerated well. Will cont to monitor.
--- NOTE | 2018-01-13 06:52 | NUR ---
End of shift notes Patient is resting in bed at this time. No c/o pain and no s/s of any distress noted. Dressing change perform and medicated for pain as ordered. All needs met and anticipated by [facility] shift nurses. Call light in reach, bed alarm on and bed in low position. Will endorse to AM shift.
[2018-01-13 07:52] VITALS: BP_SYST 156
--- NOTE | 2018-01-13 07:55 | NUR ---
AM NOTES: PATIENT IN BED, AWAKE, ALERT AND ORIENTED. NO COMPLAINTS OF PAIN OR DISCOMFORT. LEFT LEG STILL SWOLLEN AND KEPT ELEVATED. WOUND DRESSING ON LEFT FOOT IS DRY AND INTACT. CALL LIGHT WITHIN REACH.
[2018-01-13] MEDS: VITAMIN B COMPLEX WITH C TAB/CAP PO SCH (09:02)
[2018-01-13] MEDS: VANCOMYCIN HCL 1,500 MG in NS 250 ML IV SCH ×2 (09:02→21:23)
[2018-01-13] MEDS: GABAPENTIN 300 MG CAPSULE PO SCH ×3 (09:03→21:10)
[2018-01-13] MEDS: METOPROLOL SUCCINATE 50 MG TAB.SR.24H (TOPROL XL) PO SCH (09:03)
[2018-01-13] MEDS: THIAMINE HCL 100 MG TABLET PO SCH (09:03)
[2018-01-13] MEDS: CHOLECALCIFEROL (VITAMIN D3) 2,000 UNIT TABLET PO SCH (09:04)
[2018-01-13] MEDS: SOTALOL HCL 80 MG TABLET PO SCH ×2 (09:04→21:10)
[2018-01-13] MEDS: BALSAM PERU/CASTOR OIL 60 GM OINT...G. TP SCH (09:04)
--- NOTE | 2018-01-13 09:05 | NUR ---
MORPHINE: PATIENT C/O PAIN ON LEFT FOOT WOUND WITH A PAIN SCALE OF 7/10. DUE IV PAIN MEDS GIVEN ORDERED. NO OTHER SIDE EFFECTS NOTED AFTER IV PAIN MEDS.
--- NOTE | 2018-01-13 10:06 | NUR ---
Discharge Planning: TANISHA followed up with [facility] (f [phone] p [phone]):DCP left VM. DCP to follow up. TANISHA spoke with Piter at [facility], pt was accepted, Piter will contact pharmacy for IV medication. Addendum: 01/13/18 at 6723 by Janeth Boland DP [facility] (f [phone] p [phone]) stated she was in contact with Dr Dee, she is waiting for an email regarding information on the custom ASO. Addendum: 01/13/18 at 8598 by Janeth Bolnad DP TANISHA faxed [facility] (f [phone] p [phone]) additional order
--- NOTE | 2018-01-13 11:45 | NUR ---
DC Planning: Out patient wound care treatment arranged with [facility] at [facility] # [phone] [facility], [address] [place] [address], [place] [address], tel # [phone] The pt. made aware, the appointment is tentatively on January. Please call Kelly/staff at the wound care center to confirm your appointment.
[2018-01-13 12:00] VITALS: BP_SYST 143
--- NOTE | 2018-01-13 12:30 | NUR ---
RN ROUNDS: PATIENT SITTING ON BED AND EATING LUNCH AT THE MOMENT. SECURED CONSENT FOR SURGERY AND PRE-OP CHECKLIST READY AND TO BE RECHECKED TOMORROW.
--- NOTE | 2018-01-13 13:04 | NUR ---
PAIN MEDS:: PATIENT COMPLAINED OF LEFT FOOT PAIN IN WOUND AREA. MORPHINE IVP GIVEN. NO SIGNS OF ADVERSE REACTION TO PAIN MEDICATION.
--- NOTE | 2018-01-13 15:15 | NUR ---
PHYSICAL THERAPY EVALUATION HAS BEEN COMPLETED TODAY. PATIENT IS SAFE TO USE THE KNEE SCOOTER OR FWW WITH THE LEFT LE ORTHOTIC DEVICE TO KEEP NWB ON THE LEFT FOOT FOR THE REMAINDER OF TODAY. HE WILL BE REEVALUATED FOLLOWING TOMORROW'S SURGICAL PROCEDURE.
[2018-01-13 16:00] VITALS: BP_SYST 154
--- NOTE | 2018-01-13 16:01 | NUR ---
RN ROUNDS: PATIENT IS AWAKE, ALERT AND SITTING ON BEDSIDE. NO COMPLAINTS OF DISCOMFORT AT THE MOMENT. SEEN BY DR. PAULINO AND WAS REFERRED TO PT. WAITING FOR URINE COLLECTION FOR URINALYSIS. NEEDS ATTENDED AT ALL TIMES.
[2018-01-13 17:35] LABS: BILIRUBIN,URINE NEGATIVE (NEGATIVE); BLOOD, URINE NEGATIVE (NEGATIVE); CLARITY/URINE CLEAR (CLEAR); COLOR,URINE YELLOW (YELLOW); GLUCOSE,URINE NEGATIVE (NEGATIVE); KETONES,URINE NEGATIVE (NEGATIVE); LEUKOCYTE ESTERASE ,URINE NEGATIVE (NEGATIVE); NITRITE, URINE NEGATIVE (NEGATIVE); PROTEIN URINE NEGATIVE (NEGATIVE); UROBILINOGEN,URINE 0.2 (0.2-1.0)
--- NOTE | 2018-01-13 18:43 | NUR ---
CLOSING NOTES: PATIENT AWAKE, ALERT AND SITTING ON BED. DENIES ANY SHORTNESS OF BREATH. COMPLAINTS OF TOLERABLE PAIN ON LEFT FOOT WITH PAIN SCALE OF 4/10. FOR SURGERY TOMORROW AND WAS INSTRUCTED ON NPO POST MIDNIGHT. ALL MEDICATIONS AND NEEDS ATTENDED.
--- NOTE | 2018-01-13 19:30 | NUR ---
ROUNDS PATIENT RESTING COMFORTABLY IN BED, NOT IN DISTRESS, VITALS STABLE. DENIES ANY PAIN AT THIS TIME. ASSESSMENT DONE AND DOCUMENTED. SEE FLOWSHEET. NEEDS ATTENDED TO. SAFETY AND FALL PRECAUTION MEASURES IN PLACED. BED IN LOW AND LOCKED POSITION. CALL LIGHT PLACED WITHIN REACH.
--- NOTE | 2018-01-13 21:35 | NUR ---
MEDICATION DUE MEDICATIONS GIVEN ORDERED, TOLERATED WELL. WILL CONTINUE TO MONITOR.
--- NOTE | 2018-01-14 00:14 | NUR ---
PATIENT RESTING: Patient resting quietly. No acute distress noted. Vital signs within normal range.
[2018-01-14] MEDS: AMPICILLIN SODIUM/SULBACTAM NA 3 GM in NS 100 ML IV SCH ×5 (00:23→23:48)
[2018-01-14 00:57] VITALS: BP_SYST 157
[2018-01-14] MEDS: MORPHINE 4 MG/ML INJ. SYRINGE IVP PRN ×5 (01:28→20:44)
--- NOTE | 2018-01-14 02:14 | NUR ---
ROUNDS PATIENT ASLEEP, VITALS STABLE, NO PAIN AT THIS TIME. WILL CONTINUE TO MONITOR.
--- NOTE | 2018-01-14 04:05 | NUR ---
PATIENT RESTING: Patient resting quietly. No acute distress noted. Vital signs within normal range.
--- NOTE | 2018-01-14 06:28 | NUR ---
CLOSING NOTES PATIENT ASLEEP AT THIS TIME, VITALS STABLE, NO MORE PAIN AT THIS TIME. ALL NEEDS ATTENDED TO. SAFETY MEASURES MAINTAINED. CALL LIGHT PLACED WITHIN REACH.
[2018-01-14 06:54] LABS: CALCIUM 8.9 mg/dL (8.4-11.0); CREATININE 0.85 mg/dL (0.55-1.30); POTASSIUM 4.5 mmol/L (3.5-5.1); TOTAL BILIRUBIN 0.3 mg/dL (0.0-1.0)
[2018-01-14 06:55] LABS: ALBUMIN 2.6 g/dL (3.4-4.8)
[2018-01-14 08:02] VITALS: BP_SYST 154
--- NOTE | 2018-01-14 08:15 | NUR ---
OPENING NOTE: MORNING REPORT WAS TAKEN FROM DUST PULLER NURSE. PATIENT SITTING AT EDGE OF BED. PATIENT NOT COMPLAINING OF SHORTNESS OF BREATH. PATIENT ON ROOM AIR. PATIENT NOT COMPLAINING OF NAUSEA OR VOMITING. PATIENT'S DRESSING IS INTACT. LEFT LOWER EXTREMITY MORE EDEMATOUS THAN RIGHT. RIGHT FOOT COLD TO TOUCH BUT PEDAL PULSE PRESENT AND CAP REFILL 4 SEC. LEFT FOOT WARM AND CAP REFILL 3 SEC. PATIENT SAID HE IS NOT ABLE TO FELL TOUCH ON BOTH FEET. PATIENT NOT COMPLAINING OF CONSTIPATION. PATIENT COMPLAINING OF SOME PAIN IN LOWER BACK. EDUCATED PATIENT ON IMPORTANCE OF BED ALARM BUT REFUSED TO HAVE IT ON. PATIENT VERBALIZED UNDERSTANDING AND SAID HE IS OKAY TO WALK. BED IN LOWEST POSITION AND CALL LIGHT IN REACH. WILL CONTINUE TO MONITOR.
[2018-01-14] MEDS: VITAMIN B COMPLEX WITH C TAB/CAP PO SCH (09:00)
[2018-01-14] MEDS: THIAMINE HCL 100 MG TABLET PO SCH (09:00)
[2018-01-14] MEDS: CHOLECALCIFEROL (VITAMIN D3) 2,000 UNIT TABLET PO SCH (09:00)
[2018-01-14] MEDS: GABAPENTIN 300 MG CAPSULE PO SCH ×3 (09:00→20:40)
[2018-01-14] MEDS: VANCOMYCIN HCL 1,500 MG in NS 250 ML IV SCH (09:46)
[2018-01-14] MEDS: SOTALOL HCL 80 MG TABLET PO SCH ×2 (09:47→20:40)
[2018-01-14] MEDS: METOPROLOL SUCCINATE 50 MG TAB.SR.24H (TOPROL XL) PO SCH (09:48)
[2018-01-14] MEDS: BALSAM PERU/CASTOR OIL 60 GM OINT...G. TP SCH (10:02)
--- NOTE | 2018-01-14 10:15 | NUR ---
WOUND CARE: PATIENT'S DRESSING GOT WET. CHANGED DRESSINGS. CLEANED WOUNDS WITH NS, PATTED DRY, APPLIED VENELEX TO WOUNDS AND MOISTER BARRIER CREAM. COVERED WITH FOAM DRESSING AND WRAPPED. PATIENT GOING TO DO CHG BATH. WILL CONTINUE TO MONITOR.
[2018-01-14] MEDS ORDERED: LR 1,000 ML IV SCH ×3 (10:59→12:47)
[2018-01-14] MEDS ORDERED: MEPERIDINE HCL/PF 25 MG/ML DISP.SYRIN IVP PRN ×2 (11:00)
[2018-01-14] MEDS ORDERED: HYDROmorphone 2 MG/ML VIAL IVP PRN ×4 (11:00)
[2018-01-14] MEDS ORDERED: HYDROmorphone 1 MG INJ. 1 MG/ML AMPUL IVP PRN ×2 (11:00)
--- NOTE | 2018-01-14 11:16 | NUR ---
PATIENT LEFT TO OR WITH [facility].
--- NOTE | 2018-01-14 12:01 | NUR ---
Discharge Planning: [facility] faxed additional DME order to [facility] (f [phone] p [phone]): Piter stated he received order. Addendum: 01/14/18 at 1458 by Janeth Boland DP [facility] faxed Wound Care order to [facility] (f [phone] p [phone]); Piter did received order.
[2018-01-14] MEDS ORDERED: POLYMYXIN 500,000/BACIT.10,000 UNITS in NS IRR 1 L IR ONE (12:16)
[2018-01-14] MEDS ORDERED: METOCLOPRAMIDE HCL 10 MG/2 ML VIAL IVP PRN (13:00)
[2018-01-14] MEDS ORDERED: MORPHINE 4 MG/ML INJ. SYRINGE IVP PRN ×3 (13:00)
[2018-01-14] MEDS ORDERED: ROCURONIUM BROMIDE 10 MG/ML (ZEMURON) ONE (13:10)
[2018-01-14] MEDS ORDERED: PROPOFOL 200MG/ 20ML VIAL (DIPRIVAN) IV ONE (13:10)
[2018-01-14] MEDS ORDERED: ONDANSETRON HCL 4 MG/2 ML VIAL ONE (13:10)
[2018-01-14] MEDS ORDERED: KETOROLAC TROMETHAMINE 30 MG VIAL ONE (13:10)
[2018-01-14] MEDS ORDERED: fentaNYL CITRATE 250 MCG/5 ML AMP ONE (13:10)
[2018-01-14] MEDS ORDERED: SEVOFLURANE 15 MIN GAS INH ONE (13:10)
[2018-01-14] MEDS ORDERED: MIDAZOLAM HCL 5 MG/ML VIAL (VERSED) IV ONE (13:10)
[2018-01-14] MEDS ORDERED: LR 1,000 ML IV.SOLN IV ONE (13:10)
--- NOTE | 2018-01-14 13:51 | NUR ---
DC Planning: Out patient wound care treatment arranged with Kelly at [facility] # [phone] [facility] at [facility], [address] [place] [address], [place] [address], tel # [phone] The appointment is tentatively on January. Please call Kelly/staff at the wound care center to confirm your appointment. >> [facility] # [phone] for woud care/dressing change, IV ABX. Confirmed with Piter to follow wound care instruction strictly as per dr. Villalba 's order. Refaxing wound care order to Piter today. Addendum: 01/14/18 at 1439 by Nitish Payne RN >> AFO BRACE: Arranged with [facility], contact Manju #[phone] for fitting. Patient agreed to pick it up at [facility] office at [address] [place] [address]. Staff from [facility] will come to [facility] to assess and make foot measurement on Wednesday01/15/2018. The estimate time to finish the custom made AFO is 2 weeks. Patient please contact [facility] for final fitting and milk pickup truck driver time. The copy of this instruction is provided to patient today. MAJO Raygoza , dr. Villalba and dr. Dent made aware. Addendum: 01/14/18 at 1442 by Nitish Payne RN >> Front wheel walker will be delivered to the pt. home by [facility].
--- NOTE | 2018-01-14 14:00 | NUR ---
NOTE: PATIENT BACK FROM OR. PATIENT NOT COMPLAINING OF PAIN. PATIENT ON ROOM AIR. VITALS ARE STABLE. PATIENT HAS TO USE RESTROOM. PHYSICAL THERAPY GOING TO COME AND HELP PATIENT GET OUT OF BED. WILL CONTINUE TO MONITOR.
--- NOTE | 2018-01-14 14:42 | NUR ---
PHARM: CALLED PHARMACY TO ASK IF I SHOULD FINISH REST OF VANCO. PHARMACY SAID TO JUST HOLD AND GIVE THE NEXT DOSE AT 2100. ASKED IF I SHOULD GIVE THE UNASYN BECAUSE HE WAS IN OR AND SAID TO WAIT FOR THE 1800 DOSE TOO.
--- NOTE | 2018-01-14 15:10 | NUR ---
Follow up care instructions: Wound care appointment with [facility] # [phone] at [facility] at [facility], address: [address] [place] [address], tel # [phone]. The appointment is tentatively on January. Please call Kelly/staff at the wound care center to confirm your appointment. [facility] for woud care/dressing change, IV antibiotic medication infusion Home health nurse to follow wound care instruction strictly as per dr. Villalba 's order. IV medication to be provided by [facility]. Please contact [facility] if there is any questions or concerns. Front Wheel Walker to be delivered to patient home by [facility]. Please call # [phone], if there is any questions or concerns. AFO BRACE: Arranged with [facility], contact Manju #[phone] for fitting. Patient agreed to pick it up at [facility] office at [address] [place] [address]. The estimated time to finish the custom made AFO is 2 weeks. Patient please contact [facility] for final fitting and pharmacy picking technician time.
--- NOTE | 2018-01-14 15:29 | NUR ---
NOTE: PATIENT WAS COMPLAINING OF PAIN. GAVE PAIN MEDICATION. PATIENT'S FOOT WAS BLEEDING ON TOP. REENFORCED WITH GAUZE. TOLD HIM WANTS FOOT ELEVATED. PATIENT GOT IN BED AND ELEVATED FOOT. PUT BED ALARM ON AND TOLD PATIENT TO CALL IF HE NEEDS SOMETHING. CALL LIGHT IS IN REACH. WILL CONTINUE TO MONITOR. Addendum: 01/14/18 at 1533 by Dana Richardson RN PATIENT HAD PUT SOCK ON OVER LEFT FOOT. WHEN TOOK IT OFF SAW IT WAS BLEEDING. TOLD PATIENT NOT TO PUT SOCK ON IT.
[2018-01-14 15:45] VITALS: BP_SYST 123
--- NOTE | 2018-01-14 15:48 | NUR ---
Nutrition F/U Admitting Diagnosis New onset atr fibr and L foot cellulitis Reviewed Pertinent Medical/Surgical Hx Medical Record Medical History Comment: PMH: HTN, chronic back pain per MD notes Pt also found w/ osteomyelitis of third metatarsal bone on the L foot, cellulitis of L foot, paroxysmal atr fibr, essential HTN, and mild obesity per MD notes Subjective Information Pt was away in OR at time of RD visit earlier this afternoon. Plans for L foot debridement per MD orders. Current Diet Order/Nutrition Support Cardiac, Ensure Enlive BID x4 days Patient/Significant Other Able To Verbalize Education Provided Not Indicated Pertinent Medications Reviewed Pertinent Labs K 4.5 WNL (improved), HgA1c 5.1 WNL, ALB 2.6 L, AST 44 H, ALP 226 H Height (Feet) 5 feet Height (Inches) 10.00 inches Weight (Pounds) 220 pounds (01/10/18) Weight (Calculated Kilograms) 99.438746 kilograms Patient Weight 99.79 kg Body Mass Index 31.56 kg/m2 Usual Weight 190 lbs %UBW 116 %IBW 133 [place]/Adjusted Body Weight IBW: 166 lb, 75 kg. Adj IBW (obesity): 180 lb, 82 kg Recent Weight Change No - -20 lb within past 5 lb; 8% moderate wt change Weight Status Obese Gastrointestinal Symptoms Diarrhea Last BM Jan 10, 2018 Food Allergies No Usual Diet At Home Regular, no restrictions; enjoys red meats, fish, cup of noodle soups Skin Integrity Comment: Naun scale: 20; per [employer] note 01/11/18: 1. Left plantar foot over metatarsal heads 1-3: Acute on chronic nonhealing ulcer, present on admission. 2. Left dorsal foot over MTP junction of third metatarsal head: Wound, present on admission. 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 *ongoing Expected Outcomes/Goals - Monitor appetite and PO intakes w/ goal of pt meeting at least 75% of estimated nutritional needs, labs trending WNL, normal GI function, and skin integrity/wt maintenance Dietitian Recommendations * Recommend continuing cardiac diet, Ensure Enlive BID (oral supplement provides an additional 700 kcal/day and 40 gm protein/day) Follow Up Mod Risk: F/U in 3-5 days
--- NOTE | 2018-01-14 15:54 | NUR ---
Dietitian Recommendations * Recommend continuing cardiac diet, Ensure Enlive BID (oral supplement provides an additional 700 kcal/day and 40 gm protein/day) LP, RD Please refer to Nutrition F/U for details.
--- NOTE | 2018-01-14 17:34 | NUR ---
NOTE: PATIENT WAS ASLEEP WITH NO SIGNS OF DISTRESS. WOKE PATIENT UP. GAVE PATIENT ANTIBIOTICS. FOOT IS ELEVATED. FOOT SEEMS TO HAVE STOPPED BLEEDING BECAUSE DRESSING NOT MORE WET. BED ALARM IS ON AND CALL LIGHT IN REACH. WILL CONTINUE TO MONITOR.
--- NOTE | 2018-01-14 18:49 | NUR ---
CLOSING NOTE: PATIENT SITTING AT EDGE OF BED. HELPED PATIENT BACK INTO BED. ELEVATED FOOT. IV SALINE LOCKED. PATIENT ON ROOM AIR NOT COMPLAINING OF SHORTNESS OF BREATH. EDUCATED PATIENT ON IMPORTANCE OF BED ALARM BUT REFUSED TO HAVE IT ON. TOLD PATIENT TO CALL SO WE CAN HELP HIM TO RESTROOM. PATIENT VERBALIZED UNDERSTANDING. CALL LIGHT IN REACH AND BED IN LOWEST POSITION. PATIENT WAS GOING TO SLEEP. WILL CONTINUE OT MONITOR AND GIVE REPORT TO SUPERVISOR CD AREA NURSE.
--- NOTE | 2018-01-14 19:12 | NUR ---
Opening Notes Received patient in bed AAOx4 able to verbalize needs. S/P debridement of the left foot. Patient has complaints of pain of 8/10 to the back and foot. No difficultly in respirations. Left Midline with dual port saline lock. Redness noted at the site. No respiratory distress. Patient is ambulatory and refused bed alarm. Educated on risk and benefits and patient acknowledges understanding. Oriented the patient to the room and use of the call light. Bed in low position and locked. Will monitor patient during rounds.
[2018-01-14 20:00] VITALS: BP_SYST 137
[2018-01-14] MEDS: VANCOMYCIN HCL 1,250 MG in NS 250 ML IV SCH (20:42)
[2018-01-15 00:14] VITALS: BP_SYST 154
[2018-01-15] MEDS: MORPHINE 4 MG/ML INJ. SYRINGE IVP PRN ×4 (00:56→17:01)
[2018-01-15] MEDS: AMPICILLIN SODIUM/SULBACTAM NA 3 GM in NS 100 ML IV SCH ×2 (05:07→12:17)
[2018-01-15 07:27] LABS: BASOPHILS # (AUTO) 0.1 K/uL (0.0-0.2); BASOPHILS % (AUTO) 1.5 % (0.0-2.0); EOSINOPHILS # (AUTO) 0.6 K/uL (0.0-0.4); EOSINOPHILS % (AUTO) 8.1 % (0.0-4.0); HEMATOCRIT 39.5 % (36-54); HEMOGLOBIN 12.5 g/dL (14.0-18.0); LYMPHOCYTES # (AUTO) 1.9 K/uL (1.0-5.5); LYMPHOCYTES % (AUTO) 27.6 % (20.5-51.5); MEAN CORPUSCULAR HEMOGLOBIN 30 pg (27-31); MEAN CORPUSCULAR HGB CONC 32 % (32-36); MEAN CORPUSCULAR VOLUME 95 fL (79.0-98.0); MONOCYTES # (AUTO) 0.7 K/uL (0.0-1.0); MONOCYTES % (AUTO) 9.9 % (1.7-9.3); NEUTROPHILS # (AUTO) 3.6 K/uL (1.8-7.7); NEUTROPHILS % (AUTO) 52.9 % (40.0-70.0); PLATELET COUNT (AUTO) 276 K/uL (130-430); RED BLOOD CELL COUNT(AUTO) 4.16 MIL/uL (4.2-6.2); RED CELL DISTRIBUTION WIDTH 14.2 % (9.0-15.0); WHITE BLOOD COUNT (AUTO) 6.9 K/uL (4.8-10.8)
[2018-01-15 07:34] LABS: POTASSIUM 5.1 mmol/L (3.5-5.1)
[2018-01-15 07:35] LABS: CALCIUM 8.9 mg/dL (8.4-11.0); CREATININE 0.85 mg/dL (0.55-1.30)
--- NOTE | 2018-01-15 07:38 | NUR ---
Closing Notes Patient in bed resting. IV saline lock and site clean and intact without infiltration. All needs have been met and will endorse to the oncoming shift. Safety precautions being observed.
[2018-01-15 07:45] VITALS: BP_SYST 155
--- NOTE | 2018-01-15 07:45 | NUR ---
INITIAL NOTE RECEIVED REPORT AND PATIENT FROM WOODEN FENCE ERECTOR NURSE. PATIENT IN BED, REMAINS AWAKE, ALERT, VERBALLY RESPONSIVE. VS STABLE. BED LOCKED, ON LOWEST POSITION, PATIENT REFUSED BED ALARM TO BE ACTIVATED, EXPLAINED PURPOSE AND BENEFITS. PATIENT IS CONTINENT BOWEL AND BLADDER. AMBULATES WITH THE SCOOTER ON THE LEFT LEG. SURGICAL INCISION ON THE LEFT FOOT STILL NOTED. COVERED WITH DRESSING. CALL LIGHT WITHIN REACH, WILL CONTINUE TO MONITOR.
[2018-01-15] MEDS: SOTALOL HCL 80 MG TABLET PO SCH (09:29)
[2018-01-15] MEDS: METOPROLOL SUCCINATE 50 MG TAB.SR.24H (TOPROL XL) PO SCH (09:30)
[2018-01-15] MEDS: GABAPENTIN 300 MG CAPSULE PO SCH ×2 (09:30→15:17)
[2018-01-15] MEDS: CHOLECALCIFEROL (VITAMIN D3) 2,000 UNIT TABLET PO SCH (09:30)
[2018-01-15] MEDS: THIAMINE HCL 100 MG TABLET PO SCH (09:30)
[2018-01-15] MEDS: VANCOMYCIN HCL 1,250 MG in NS 250 ML IV SCH (09:31)
[2018-01-15] MEDS: VITAMIN B COMPLEX WITH C TAB/CAP PO SCH (09:31)
[2018-01-15] MEDS: BALSAM PERU/CASTOR OIL 60 GM OINT...G. TP SCH (09:32)
--- NOTE | 2018-01-15 10:15 | NUR ---
DR. SANTAMARIA AT BEDSIDE DR. SANTAMARIA AT BEDSIDE TO CHANGE THE PATIENT 'S DRESSING ON THE LEFT FOOT. DISCHARGE INSTRUCTIONS GIVEN. PATIENT VERBALIZE UNDERSTANDING.
--- NOTE | 2018-01-15 11:24 | NUR ---
ATTENDING MD DR PAULINO WAS PAGED, RE: TO INFORM THAT MIDLINE ACCESS IS LEAKING. SPOKE TO SANTIAGO.
[2018-01-15 11:30] VITALS: BP_SYST 157
--- NOTE | 2018-01-15 12:10 | NUR ---
MOLDING OF THE LEFT FOOT ALDEN FROM [facility]IST CAME IN TO CAST A MOLD OF PATIENT'S LEFT FOOT.
--- NOTE | 2018-01-15 12:55 | NUR ---
DR. LI AT BEDSIDE DR. LI MAKING ROUNDS, TALKED TO AND ASSESSED THE PATIENT WITH NEW ORDER. PATIENT IS AWARE.
[2018-01-15 13:00] VITALS: BP_SYST 145
--- NOTE | 2018-01-15 14:00 | NUR ---
DR. PAULINO AT BEDSIDE DR. PAULINO MAKING ROUNDS, TALKED TO AND ASSESSED THE PATIENT, DISCHARGE ORDER AND INSTRUCTIONS GIVEN AFTER MIDLINE REINSERTION. PATIENT IS AWARE.
--- NOTE | 2018-01-15 15:52 | NUR ---
PICCLINE NURSE AT BEDSIDE JESSICA PICCLINE NURSE CAME IN TO INSERT MIDLINE ON THE RIGHT UPPER ARM. NEW LINE PATENT, COVERED WITH DRY DRESSING. IV FLUIDS INFUSING VIA PUMP.
[2018-01-15] MEDS ORDERED: APIX5TAB PO (16:23)
[2018-01-15] MEDS ORDERED: METO50TA7 PO (16:24)
[2018-01-15] MEDS ORDERED: SOTA80TA PO (16:24)
[2018-01-15] MEDS ORDERED: OXYC-580 PO (16:25)
[2018-01-15 16:27] VITALS: BP_SYST 145
--- NOTE | 2018-01-15 16:59 | NUR ---
Case mgt: I called Sylvia at [facility] and confirmed pt is going home today and is starting IV Cubacin 01/16/18 and that [facility] is supposed to deliver the IV abx to pt's home. [facility] # [phone]--Sylvia is calling her nurse to ensure delivery of medication and start of service. MAYNOR KASPER Addendum: 01/15/18 at 1704 by Laurie Gauthier RN Pt had new midline inserted rt upper arm this afternoon. MAYNOR KASPER
--- NOTE | 2018-01-15 17:53 | NUR ---
DISCHARGE PATIENT IS BEING TRACK SWEEPER BY [facility] FOR DISCHARGE. DISCHARGE INSTRUCTIONS WAS GIVEN BY DR. PALUINO AND JACQUELINE HWANG. CLARIFY DISCHARGE INSTRUCTIONS, PATIENT VERBALIZE UNDERSTANDING. NEW MIDLINE SITE ON RIGHT UPPER ARM, COVERED WITH DRY DRESSING, BOTH LUMENS ARE PATENT. LEFT FOOT INCISION STILL NOTED, COVERED WITH DRY DRESSING, NO ACTIVE BLEEDING NOTED. ALL OF PATIENTS BELONGINGS WERE TAKEN HOME BY THE PATIENT, VS STABLE, PATIENT REFUSED TO BE WHEELED OUT VIA WHEEL CHAIR AND AMBULATED WITH HIS SCOOTER.
[2018-01-16] MEDS ORDERED: APIXABAN 2.5 MG TABLET PO SCH (09:00)
== END 2018-01-15 17:55 | disposition home health service (06) | DRG 463 ==
LOC: SED 21:03 → STU 01-09 00:03 → EEVIPCON 01-09 00:03 → STU 01-09 00:41 → SMU 01-10 17:15
PROVIDERS: ADMIT Internal Medicine; ATTEND Internal Medicine
PROC: 0JBR0ZZ Excision of Left Foot Subcutaneous Tissue and Fascia, Open Approach (ICD-10-PCS; 2018-01-14)
PROC: 0SJ Lower Joints, Inspection (ICD-10-PCS; 2018-01-14)
PROC: 05HY33Z Insertion of Infusion Device into Upper Vein, Percutaneous Approach (ICD-10-PCS; principal; 2018-01-15)
DX: M86.9 Osteomyelitis, unspecified (principal); E43 Unspecified severe protein-calorie malnutrition; L03.116 Cellulitis of left lower limb; L02.612 Cutaneous abscess of left foot; I48.0 Paroxysmal atrial fibrillation; I51.7 Cardiomegaly; E66.01 Morbid (severe) obesity due to excess calories; G62.9 Polyneuropathy, unspecified; G89.4 Chronic pain syndrome; L97.529 Non-pressure chronic ulcer of other part of left foot with unspecified severity; Z96.643 Presence of artificial hip joint, bilateral; K21.9 Gastro-esophageal reflux disease without esophagitis; I73.9 Peripheral vascular disease, unspecified; E87.6 Hypokalemia; I10 Essential (primary) hypertension; Z87.891 Personal history of nicotine dependence; Z87.81 Personal history of (healed) traumatic fracture; Z68.31 Body mass index [BMI] 31.0-31.9, adult; Z79.899 Other long term (current) drug therapy; Z79.01 Long term (current) use of anticoagulants; Z86.73 Personal history of transient ischemic attack (TIA), and cerebral infarction without residual deficits; I25.2 Old myocardial infarction; Z87.11 Personal history of peptic ulcer disease; Z22.321 Carrier or suspected carrier of Methicillin susceptible Staphylococcus aureus
CPT/HCPCS: 36415; 71045; 73721; 80048; 80053; 80061; 80202-TC; 81003; 83036; 83735-TC; 83880; 84439; 84443-TC; 84484; 85025; 85610-TC; 85651-TC; 85730-TC; 87040-TC; 87070-TC; 87075-TC; 87081; 87186-TC; 88300; 88305; 88311; 90656; 93005; 93306; 93923; 93970; 94010; 96365; 96366; 96372; 96375; 97161-GP; 99291; C1751; J0295; J1160; J1650; J1885; J2250; J2270; J2405; J2704; J3010; J3370; J3490; J7040; J7050; J7120

== ENCOUNTER 2018-12-11 21:33 | Inpatient (IN) | payer OTHER ==
[~2018-12-11] VITALS: Ht 172.7 cm; Wt 100.2 kg
[~2018-12-11 21:33] MED LIST changes: +APIX5TAB PO; -ATEN-41 PO; +HYDR-4274 PO; +METO50TA7 PO; +OXYC-580 PO; +SOTA80TA PO
[2018-12-11 21:42] VITALS: BP_SYST 118
--- NOTE | 2018-12-11 21:58 | NUR ---
Patient triaged and placed in waiting room. VSS and patient appears in no acute distress at this time. Accompanied by friend, awaiting available bed, and MD notified of need for MSE.
--- NOTE | 2018-12-11 22:20 | NUR ---
Pt wheeled to bed 2 for evaluation
--- NOTE | 2018-12-11 22:30 | NUR ---
Pt wheeled into ER w/ c/o of back pain 12/13 that occured 5 days ago, but still has not subsided. Pt states he was helping a friend move cabinets then tweaked his back and felt sudden sharp pain. The pain is now all down his back, and has not been relieved despite taking medications for pain. Pt has Hx of fractures to his hips bilaterally, left tibia and heel. Pt's left leg is currently swollen with wrapping bandages and sock placed over it. Pt states it is hard to walk and is not able to put pressure on heel. Pt has Hx of HTN and Neuropathy to feet. No fever, chills, N/V, will continue to monitor.
[2018-12-11 22:44] LABS: BASOPHILS % (AUTO) 0.4 % (0.0-2.0); EOSINOPHILS # (AUTO) 0.1 K/uL (0.0-0.4); EOSINOPHILS % (AUTO) 1.3 % (0.0-4.0); HEMATOCRIT 40.4 % (36-54); HEMOGLOBIN 13.4 g/dL (14.0-18.0); LYMPHOCYTES # (AUTO) 1.1 K/uL (1.0-5.5); LYMPHOCYTES % (AUTO) 15.6 % (20.5-51.5); MEAN CORPUSCULAR HEMOGLOBIN 30 pg (27-31); MEAN CORPUSCULAR HGB CONC 33 % (32-36); MEAN CORPUSCULAR VOLUME 90 fL (79.0-98.0); MONOCYTES # (AUTO) 0.9 K/uL (0.0-1.0); MONOCYTES % (AUTO) 13.9 % (1.7-9.3); NEUTROPHILS # (AUTO) 4.6 K/uL (1.8-7.7); NEUTROPHILS % (AUTO) 68.8 % (40.0-70.0); PLATELET COUNT (AUTO) 214 K/uL (130-430); RED BLOOD CELL COUNT(AUTO) 4.49 MIL/uL (4.2-6.2); WHITE BLOOD COUNT (AUTO) 6.8 K/uL (4.8-10.8)
[2018-12-11 22:58] LABS: CALCIUM 9.7 mg/dL (8.4-11.0); CREATININE 1.04 mg/dL (0.55-1.30); POTASSIUM 4.1 mmol/L (3.5-5.1)
[2018-12-11 23:06] LABS: ALBUMIN 2.5 g/dL (3.4-4.8); TOTAL BILIRUBIN 0.8 mg/dL (0.0-1.0)
--- NOTE | 2018-12-12 00:18 | NUR ---
ER Dr. Fuller at bedside examining patient.
[2018-12-12] MEDS ORDERED: MORPHINE 4 MG/ML INJ. SYRINGE IVP ONE ×2 (00:30→04:45)
[2018-12-12] MEDS ORDERED: PIPERACILLIN/TAZO 3.375 GM in NS 50 ML IV ONE (00:30)
--- NOTE | 2018-12-12 01:00 | NUR ---
Note undone in EDM - 12/12/18 at 0331 by AILYN Pt BIB by family to ED C/O nausea/vomiting since Wednesday. Pt came back from [place] today. was in [place] for 8 days. unable to hold any fluid or solid food down. Pt remains A/A/O x 4 thru out initial assessment process. No other complaints and or injuries noted at this time. VSS no s/s of acute distress at this time. Resting on [employer] rails up
--- NOTE | 2018-12-12 01:11 | NUR ---
Medication reconciliation completed with information provided by patient. Any prior medication reconciliation on file was reviewed and corrected.
[2018-12-12] MEDS ORDERED: MORPHINE 2 MG/ML INJ. SYRINGE IVP ONE ×2 (01:15→05:30)
[2018-12-12] MEDS ORDERED: PIPERACILLIN/TAZOBACTAM 3.375 GM/VIAL (ZOSYN) IV ONE (01:38)
--- NOTE | 2018-12-12 03:10 | NUR ---
While attempting to use urinal by himself (Pt asked for privacy), Pt accidentally pulled out IV, skin at IV site WNL however, no infiltration
--- NOTE | 2018-12-12 04:00 | NUR ---
# 20 gauge angiocath placed to Rt Hand. Use of asceptic technique. Opsite placed over site. Blood return noted. Blood for lab drawn from site. Flushed with 10 cc of normal saline. No evidence of infiltration noted. Patient tolerated well.
[2018-12-12] MEDS ORDERED: hydrALAZINE HCL 20 MG/ML VIAL IVP ONE (04:30)
[2018-12-12] MEDS ORDERED: MORPHINE 4 MG/ML INJ. SYRINGE ONE (04:54)
--- NOTE | 2018-12-12 05:16 | NUR ---
Patient will be admitted to care of Dr. Portillo. Admitted to Med Surg unit. Will go to room 118B. Belongings list completed. Summary report printed. Report will be given at bedside.
--- NOTE | 2018-12-12 05:37 | NUR ---
ADMIT NOTE Received pt from ER to the floor with a diagnosis of LEFT FOOT ULCER. Admission process initiated. patient oriented to pain management, safety and call light-teach back done.
[2018-12-12 05:55] VITALS: BP_SYST 145
--- NOTE | 2018-12-12 06:10 | NUR ---
Dr. Portillo: Spoke with Dr. Portillo over phone, she was made aware regarding patient's elevated temp and HR. New orders received, verified by read-back, RN to input.
[2018-12-12] MEDS ORDERED: ACETAMINOPHEN 325 MG TABLET PO PRN ×2 (06:15→10:30)
[2018-12-12] MEDS: NACL 0.9% 1,000 ML IV SCH ×3 (06:18→20:18)
[2018-12-12] MEDS ORDERED: VANCOMYCIN HCL 1,000 MG in D5W 250 ML IV ONE ×2 (06:30→07:00)
[2018-12-12] MEDS ORDERED: VANCOMYCIN HCL 1000 MG/VIAL IV ONE (06:41)
--- NOTE | 2018-12-12 07:06 | NUR ---
Nutrition Update Naun Scale 16 noted. Pt admitted for Left Foot Ulcer Diet: Regular BMI: 33.6 kg/m2 RD to follow per nutrition care standards.
[2018-12-12] MEDS: VANCOMYCIN HCL 1,750 MG in NS 500 ML IV SCH ×2 (07:45→20:15)
[2018-12-12 07:50] VITALS: BP_SYST 156
--- NOTE | 2018-12-12 07:50 | NUR ---
OPENING NOTE RECEIVED PATIENT FROM PAYMASTER OF PURSES. PATIENT IS A/OX4. ABLE TO MAKE NEEDS KNOWN. C/O PAIN TO BACK; WILL CALL MD. NO ACUTE DISTRESS. NO SOB. PATIENT ABLE TO MOVE ALL EXTREMITIES. IV INTACT AND PATENT. PATIENT RECEIVING VANCOMYCIN AND LUIZA WELL WITH NO S/SX ASE NOTED. ASSISTED NURSE WITH REPOSITIONING PATIENT IN BED. BED IN LOW AND LOCKED POSITION. SIDERAIL UPX2. CALL LIGHT IN REACH. ALL NEEDS MET. CONT TO MONITOR
--- NOTE | 2018-12-12 08:40 | NUR ---
PAIN/MD SPOKE TO REGARDING PATIENT'S C/O SEVERE PAIN TO BACK RADIATING TO NECK. PATIENT RECEIVED LAST DOSE OF MORPHINE 4MG IN ER AROUND 0500. MD ORDERED MORPHINE 4 MG IVP Q4HPRN SEVERE PAIN. MD STATED SHE WILL COME IN TO SEE PATIENT AND WILL LOOK AT MEDICATION LIST. ORDER NOTED AND CARRIED OUT
[2018-12-12] MEDS: cefTRIAXone 1 GM IVPB PREMIX 50 ML IV SCH (08:50)
[2018-12-12] MEDS: MORPHINE 4 MG/ML INJ. SYRINGE IVP PRN ×3 (08:58→23:24)
--- NOTE | 2018-12-12 08:58 | NUR ---
PAIN MORPHINE ADMINISTERED ORDERED FOR SEVERE PAIN. BP156/86 HR104. LUIZA WELL. CONT TO MONITOR.
--- NOTE | 2018-12-12 10:00 | NUR ---
reposition Assisted patient with repositioning. Fabio well. Cont to monitor. Call light in reach.
[2018-12-12] MEDS ORDERED: APIXABAN 2.5 MG TABLET PO ONE (10:15)
[2018-12-12] MEDS ORDERED: SOTALOL HCL 80 MG TABLET PO ONE (10:15)
--- NOTE | 2018-12-12 10:24 | NUR ---
CONSULTATION PAGED REASON FOR CONSULTATION:FOOT OSTEOMYELITIS, PELVIC FRACTURE WAS CONSULT CALLED?Y PERSON WHO WAS NOTIFIED:FERNANDO CONSULTING PHYSICIAN:ELIZABETH BARBOUR CAR BODY DESIGNER SPECIALTY:ORTHO CAR BODY DESIGNER PHONE NUMBER:[phone] REQUESTING PHYSICIAN:ELISSA NIEVES
[2018-12-12] MEDS ORDERED: ONDANSETRON HCL 4 MG/2 ML VIAL IVP PRN (10:30)
[2018-12-12 10:57] LABS: INR 1.2 (0.80-1.20); PROTHROMBIN TIME 11.6 SECS (9.5-12.5)
[2018-12-12 11:10] LABS: FREE T4 (FREE THYROXINE) 1.4 ng/dl (0.8-1.5); PHOSPHORUS 3.5 mg/dL (2.7-4.5); THYROID STIMULATING HORMONE 0.35 uIu/mL (0.36-3.74)
--- NOTE | 2018-12-12 11:45 | NUR ---
Dr. Portillo Seen and examined by Dr. Portillo at bedside. Cont to monitor
[2018-12-12] MEDS ORDERED: LORazepam 1 MG TABLET PO ONE (12:15)
[2018-12-12 12:30] VITALS: BP_SYST 148
--- NOTE | 2018-12-12 13:28 | NUR ---
Audit Tech: met with pt. , ref stating pt. wants info. for POLST or Advanced Directive as he wants to be DNR. STRUCTURAL DESIGN ENGINEER briefly met with pt who was in a lot of pain. Pt. stated he was not very hungry as he was experiencing pain. He told STRUCTURAL DESIGN ENGINEER he wanted info. for an advanced directive and a POLST. stated he wanted to be DNR stating, "If my heart blows out I do not want to be resuscitated". STRUCTURAL DESIGN ENGINEER provided him with both forms. At that time a organic preparation technician came to see pt. Pt. asked for privacy and STRUCTURAL DESIGN ENGINEER stated she could come back to see him. STRUCTURAL DESIGN ENGINEER will follow up after lunch. Addendum: 12/12/18 at 1412 by Sharon Haddad STRUCTURAL DESIGN ENGINEER Audit Tech: Follow up STRUCTURAL DESIGN ENGINEER met with pt. bedside. Pt. stated this was not a good time, he just received his pain medication and asked if STRUCTURAL DESIGN ENGINEER could come back. STRUCTURAL DESIGN ENGINEER will follow up before the end of the day.
--- NOTE | 2018-12-12 14:00 | NUR ---
WOUND CARE WOUND CARE PROVIDED. PATIENT LUIZA WELL. ALL NEEDS MET. CONT TO MONITOR
[2018-12-12 15:39] LABS: BILIRUBIN,URINE 2+ (NEGATIVE); CLARITY/URINE SL HAZY (CLEAR); COLOR,URINE AMBER (YELLOW); GLUCOSE,URINE NEGATIVE (NEGATIVE); KETONES,URINE NEGATIVE (NEGATIVE); LEUKOCYTE ESTERASE ,URINE NEGATIVE (NEGATIVE); NITRITE, URINE NEGATIVE (NEGATIVE); PROTEIN URINE 1+ (NEGATIVE)
[2018-12-12 15:41] LABS: BARBITURATE, URINE NEGATIVE (NEG <=200); BENZODIAZEPINE, URINE NEGATIVE (NEG <=150); CANNABINOID, URINE NEGATIVE (NEG <=50); COCAINE, URINE NEGATIVE (NEG <=150); METHAMPHETAMINES SCREEN,URINE POSITIVE (NEG <=500); OPIATE, URINE POSITIVE (NEG <=100); PHENCYCLIDINE SCREEN,URINE NEGATIVE (NEG <=25); UR TRICYCLIC ANTIDEPRESSANTS NEGATIVE (NEG <=300); URINE AMPHETAMINE POSITIVE (NEG <=500); URINE METHADONE NEGATIVE (NEG <=200); URINE OXYCODONE SCREEN POSITIVE (NEG <=100); URINE PROPOXYPHENE SCREEN NEGATIVE (NEG <=300)
[2018-12-12 15:44] LABS: BLOOD, URINE TRACE (NEGATIVE)
[2018-12-12 16:01] LABS: BACTERIA,URINE FEW /HPF (None Seen); MUCUS,URINE None Seen /LPF (None Seen); WBC,URINE 0-3 /HPF (0-3)
[2018-12-12 16:20] VITALS: BP_SYST 143
[2018-12-12] MEDS: METHOCARBAMOL 500 MG TABLET PO SCH ×2 (16:29→20:16)
[2018-12-12] MEDS: GABAPENTIN 300 MG CAPSULE PO SCH ×2 (16:29→20:15)
--- NOTE | 2018-12-12 16:30 | NUR ---
MEDS ALL DUE MEDS ADMINISTERED, LUIZA WELL. ALL NEEDS MET. CONT TO MONITOR.
--- NOTE | 2018-12-12 17:00 | NUR ---
SEEN AND EXAMINED BY AT BEDSIDE. PER MD NO ORDER REGARDING PELVIC FX. MD RECOMMENDED DEBRIDEMENT TO WOUND TO LEFT FOOT. MD EXPLAINED TO PATIENT AND WILL PUT IN ORDERS.
--- NOTE | 2018-12-12 17:20 | NUR ---
PAIN MED PATIENT C/O 01/12 PAIN TO NECK AND BACK. MORPHINE GIVEN ORDERED; LUIZA WELL. ALL NEEDS MET. CONT TO MONITOR Addendum: 12/12/18 at 1848 by Alina Sinclair RN ASSISTED CITY TAX AUDITOR WITH LINEN CHANGE
--- NOTE | 2018-12-12 17:26 | NUR ---
CONSULTATION PAGED REASON FOR CONSULTATION:BACK/NECK PAIN PREVIOUS LUMBAR SURGERY WAS CONSULT CALLED?Y PERSON WHO WAS NOTIFIED:DAVID CONSULTING PHYSICIAN:ASHANTI GONZALEZ ( AIR ROUTE CONTROLLER) DINKEY LOCOMOTIVE OPERATOR SPECIALTY:NEURO SURGEON DINKEY LOCOMOTIVE OPERATOR PHONE NUMBER:[phone] REQUESTING PHYSICIAN:MARITO ZHOU
--- NOTE | 2018-12-12 18:35 | NUR ---
off unit taken for CT scan via bed. Stable. Able to make needs known. No acute distress.
--- NOTE | 2018-12-12 18:56 | NUR ---
ON UNIT PATIENT RETURNED FROM CT SCAN PATIENT IS STABLE. AWAKE IN BED. NO ACUTE DISTRESS. NO SOB. RESPIRATION EVEN AND UNLABORED. SKIN WARM AND DRY TO TOUCH. IV INTACT AND PATENT; LUIZA IVF ORDERED. REPOSITIONED FOR COMFORT. BED IN LOW AND LOCKED POSITION. SIDERAIL UP X2. ALL NEEDS MET. CALL LIGHT IN REACH. CONT TO MONITOR. WILL ENDORSE TO ONCOMING SHIFT.
--- NOTE | 2018-12-12 19:00 | NUR ---
CLOSING NOTE PATIENT RESTING IN BED. EASILY AROUSABLE. NO S/SX PAIN AT THIS TIME. NO ACUTE DISTRESS. RESPIRATION EVEN AND UNLABORED. SKIN WARM AND DRY TO TOUCH. IV INTACT AND PATENT. LUIZA IVF ORDERED. BED IN LOW AND LOCKED POSITION. SIDERAIL UPX2. BED ALARM ON. ALL NEEDS MET. CALL LIGHT IN REACH. REPORT GIVEN TO GOYO KASPER.
--- NOTE | 2018-12-12 19:25 | NUR ---
OPENING NOTE RECEIVED CARE OF PT. PT IS A/OX4 AND IS ABLE TO MAKE NEEDS KNOWN. C/O PAIN TO BACK, PT REPORTS PAIN TO BE TOLERABLE AT THIS TIME. NO ACUTE DISTRESS. NO SOB. PT ABLE TO MOVE ALL EXTREMITIES. IV INTACT AND PATENT. PT ORIENTED TO USE OF CALL LIGHT AND ENCOURAGED TO CALL FOR ANY ASSISTANCE. SAFETY PRECAUTIONS ARE IN PLACE: BED IN LOW AND LOCKED POSITION. SIDE RAILS UPX2. CALL LIGHT WITH PT. ALL NEEDS MET. WILL CONT TO MONITOR.
[2018-12-12 20:00] VITALS: BP_SYST 158
[2018-12-12] MEDS: SOTALOL HCL 80 MG TABLET PO SCH (20:15)
[2018-12-12] MEDS: LORazepam 1 MG TABLET PO SCH (20:16)
[2018-12-12] MEDS: APIXABAN 2.5 MG TABLET PO SCH (20:17)
--- NOTE | 2018-12-12 20:17 | NUR ---
SCHEDULED MEDICATIONS PT GIVEN SCHEDULED MEDICATIONS ORDERED. MEDICATIONS AND POTENTIAL SIDE EFFECTS EXPLAINED TO PT, PT VERBALIZED UNDERSTANDING. NO S/S OF ACUTE DISTRESS. IVF INFUSING ORDERED. SAFETY MAINTAINED. WILL MONITOR.
--- NOTE | 2018-12-12 23:24 | NUR ---
PAIN PT REPORTING SEVERE BACK PAIN. MORPHINE 4 MG IVP ADMINISTERED. MEDICATION AND POTENTIAL SIDE EFFECTS EXPLAINED. PT VERBALIZED UNDERSTANDING. SAFETY AND FALL PRECAUTIONS ARE IN PLACE, CALL LIGHT IS WITH PT. WILL MONITOR.
[2018-12-13] VITALS: BP_SYST 142
--- NOTE | 2018-12-13 01:40 | NUR ---
RN NOTE: PT RESTING IN BED WITH EYES CLOSED. VISIBLE SYMMETRICAL RISE AND FALL OF CHEST TO ROOM AIR. IVF INFUSING AT ORDERED RATE, NO S/S OF INFILTRATION AT IV SITE. SAFETY MAINTAINED. WILL MONITOR.
[2018-12-13] MEDS: MORPHINE 4 MG/ML INJ. SYRINGE IVP PRN ×5 (03:25→20:48)
--- NOTE | 2018-12-13 03:25 | NUR ---
PAIN/MORPHINE PT REPORTING SEVERE BACK PAIN. MORPHINE 4 MG IVP ADMINISTERED. NO S/S OF ACUTE DISTRESS. BREATHING IS UNLABORED TO ROOM AIR. SAFETY AND FALL PRECAUTIONS ARE IN PLACE, CALL LIGHT IS WITH PT. WILL MONITOR.
[2018-12-13] MEDS: NACL 0.9% 1,000 ML IV SCH ×2 (06:14→16:45)
[2018-12-13] MEDS: oxyCODONE HCL 5 MG TABLET PO PRN ×2 (06:15→14:50)
--- NOTE | 2018-12-13 06:15 | NUR ---
PAIN/OXYCODONE PT REPORTING PAIN AND ASKING FOR BREAKTHROUGH PAIN MEDICATION. OXYCODONE HCL 10 MG PO ADMINISTERED. MEDICATION EXPLAINED TO PT. PT YELLING THAT HE IS IN PAIN, APPEARS SLIGHTLY DIAPHORETIC. BREATHING IS UNLABORED TO ROOM AIR. SAFETY MAINTAINED. WILL MONITOR.
--- NOTE | 2018-12-13 06:54 | NUR ---
OPENING NOTE RECEIVED CARE OF PT. PT IS A/OX4 AND IS ABLE TO MAKE NEEDS KNOWN. C/O PAIN TO BACK, PT REPORTS PAIN TO BE TOLERABLE AT THIS TIME. NO ACUTE DISTRESS. NO SOB. PT ABLE TO MOVE ALL EXTREMITIES. IV INTACT AND PATENT. SAFETY PRECAUTIONS ARE IN PLACE: BED IN LOW AND LOCKED POSITION. SIDE RAILS UPX2. CALL LIGHT WITH PT. ALL NEEDS MET DURING SHIFT. WILL ENDORSE TO DAY SHIFT RN. Addendum: 12/13/18 at 0655 by Henny Ross RN AMMEND: CLOSING NOTE
--- NOTE | 2018-12-13 07:30 | NUR ---
opening note patient is resting in bed, alert and oriented, assessment completed, educated call light system and plan of care, patient verbalized understanding, patient will be getting prn pain medication for back pain, no other needs addressed at this time, fall/safety precautions in place, IV fluids running with no signs of infiltration.
[2018-12-13 07:43] LABS: CALCIUM 9.1 mg/dL (8.4-11.0); CREATININE 0.76 mg/dL (0.55-1.30); POTASSIUM 3.8 mmol/L (3.5-5.1)
[2018-12-13] MEDS: cefTRIAXone 1 GM IVPB PREMIX 50 ML IV SCH (07:47)
[2018-12-13 08:00] VITALS: BP_SYST 120
[2018-12-13] MEDS: VANCOMYCIN HCL 1,750 MG in NS 500 ML IV SCH ×2 (09:20→20:41)
--- NOTE | 2018-12-13 09:20 | NUR ---
scheduled medications patient is resting in bed, educated on medication uses and side effects, patient verbalized understanding, patient tolerated well, no other needs addressed at this time, fall/safety precautions in place.
[2018-12-13] MEDS: DOCUSATE SODIUM 100 MG CAPSULE PO SCH (09:21)
[2018-12-13] MEDS: LORazepam 1 MG TABLET PO SCH ×2 (09:21→20:41)
[2018-12-13] MEDS: GABAPENTIN 300 MG CAPSULE PO SCH ×3 (09:21→20:41)
[2018-12-13] MEDS: MULTIVITAMINS TAB 1 TABLET PO SCH (09:21)
[2018-12-13] MEDS: SOTALOL HCL 80 MG TABLET PO SCH ×2 (09:21→20:47)
[2018-12-13] MEDS: METHOCARBAMOL 500 MG TABLET PO SCH ×4 (09:21→20:41)
[2018-12-13] MEDS: METOPROLOL SUCCINATE 50 MG TAB.SR.24H (TOPROL XL) PO SCH (09:22)
[2018-12-13] MEDS: APIXABAN 2.5 MG TABLET PO SCH ×2 (09:23→20:46)
--- NOTE | 2018-12-13 11:36 | NUR ---
rounds patient is resting in bed, IV fluids running, no signs of distress, no needs addressed at this time, fall/safety precautions in place.
--- NOTE | 2018-12-13 11:41 | NUR ---
CONSULTATION PAGED/CALLED Reason for Consultation: OSTEOMYELITIS Person Who was Notified: SPOKE TO MEDINA FROM OFFICE. Consulting Physician: International Marketing Intern Specialty: INFECTIOUS DISEASE Ordering Physician:
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
[2018-12-13 12:40] VITALS: BP_SYST 154
--- NOTE | 2018-12-13 13:15 | NUR ---
patient signed consent for contrast went over questionnaire for contrast and signed consent.
[2018-12-13] MEDS ORDERED: LISINOPRIL 5 MG TABLET PO ONE (13:30)
[2018-12-13] MEDS: BALSAM PERU/CASTOR OIL 60 GM OINT...G. TP SCH (14:30)
[2018-12-13] MEDS ORDERED: GADOPENTETATE DIMEGLUMINE 15 ML VIAL IV ONE (14:31)
--- NOTE | 2018-12-13 14:57 | NUR ---
patient off unit going to MRI. Addendum: 12/13/18 at 1514 by Cindy Jerry RN medications prior to going to MRI patient was given prn pain medication and scheduled medications prior to leaving unit.
--- NOTE | 2018-12-13 16:00 | NUR ---
Nutrition Note RD called Wiley Shannon's office regarding orders for Ensure Enlive TID and Jose Cruz BID -- spoke w/ information receptionist, Darcy. She stated she would page physician. Awaiting call back. Addendum: 12/13/18 at [address] RD received call back from Dr. Portillo who was agreeable w/ RD rec. RD to implement order via TO/RB via EMR.
--- NOTE | 2018-12-13 16:30 | NUR ---
patient back on unit from MRI, Radha explained to me that patient was being uncooperative and not lying still so they were not able to get all the images ordered.
--- NOTE | 2018-12-13 16:37 | NUR ---
Dietitian Recommendations * Recommend Ensure Enlive TID (1050 kcal/day, 60 gm pro/day alternate flavors) and Jose Cruz BID (160 kcal/day, 5 gm pro/day alternate flavors). * Encourage PO intake for >75% * Provide snacks TID for pt based on preferences (turkey sandwich, cranberry juice, lucho crackers with peanut butter). JOSE, Houseperson Please refer to Nutrition Assessment for details. Signed: 12/13/18 at 163 by Kristina RAYA <Co-Signature Required> Co-Signed: 12/13/18 at [address] Addendum: 12/13/18 at 163 by Kristina RAYA Amended: Links added.
[2018-12-13 16:52] VITALS: BP_SYST 158
--- NOTE | 2018-12-13 17:24 | NUR ---
rounds patient is resting in bed, eyes closed breathing easy and nonlabored, IV fluids running, no needs addressed at this time, fall/safety precautions in place.
--- NOTE | 2018-12-13 18:44 | NUR ---
closing note patient is resting in bed, no oneeds addressed at this time, fall/safety precautions in place, IV fluids running with no signs of infiltration, will endorse report to [facility] shift nurse to continue with care, patient will have MRI of the left foot tomorrow, Dr Walker came for the consult already and I update him on his status. Addendum: 12/13/18 at 1845 by Cindy Jerry RN patient has PRN hydralazine for SBP greater than 160.
--- NOTE | 2018-12-13 19:30 | NUR ---
Opening notes Received report. Patient is resting comfortably in bed. No signs of distress noted. Breathing even and unlabored. IV patent and intact, infusing fluids. Patient complains of pain, will medicate when med available. Son, Al, is at the bedside. Updated Patient and Al the patient's plan of care. Both verbalized understanding. No other needs. Call light with the patient. Safety precautions in place.
--- NOTE | 2018-12-13 20:45 | NUR ---
Medications Scheduled and prn pain medications given. Educated the action and side effects of medications. Patient verbalized understanding and tolerated well. No signs of allergic reaction noted. No other needs. Call light with the patient. Safety precautions in place.
[2018-12-13 20:50] VITALS: BP_SYST 180
--- NOTE | 2018-12-13 23:00 | NUR ---
Sleeping Patient sleeping. No signs of distress noted. Breathing even and unlabored. IVF infusing well. Call light with the patient. Safety precautions in place.
[2018-12-14 00:55] VITALS: BP_SYST 156
--- NOTE | 2018-12-14 01:00 | NUR ---
Sleeping No signs of distress noted. Breathing even and unlabored. IVF infusing well. Call light with the patient. Safety precautions in place.
[2018-12-14] MEDS: MORPHINE 4 MG/ML INJ. SYRINGE IVP PRN ×4 (03:30→19:38)
--- NOTE | 2018-12-14 03:30 | NUR ---
Pain PRN pain medication given. Educated the action and side effects of medication. Patient verbalized understanding and tolerated well. No signs of allergic reaction noted. Snacks provided for patient. No other needs. call light with the patient. Safety precautions in place.
--- NOTE | 2018-12-14 05:06 | NUR ---
Resting Patient resting, watching TV. No signs of distress noted. Breathing even and unlabored. IVF infusing well. Call light with the patient. Safety precautions in place.
[2018-12-14] MEDS: NACL 0.9% 1,000 ML IV SCH ×3 (05:08→20:52)
--- NOTE | 2018-12-14 06:48 | NUR ---
Closing notes Patient resting in bed. No signs of distress noted. Breathing even and unlabored. IV patent and intact, infusing fluids. Patient denies pain at this time. All needs met throughout the shift. Call light with the patient. Safety precautions in place. Will endorse care to day shift RN.
[2018-12-14 07:17] LABS: BASOPHILS % (AUTO) 0.6 % (0.0-2.0); EOSINOPHILS # (AUTO) 0.1 K/uL (0.0-0.4); EOSINOPHILS % (AUTO) 1.7 % (0.0-4.0); HEMATOCRIT 39.3 % (36-54); HEMOGLOBIN 12.9 g/dL (14.0-18.0); LYMPHOCYTES # (AUTO) 1.2 K/uL (1.0-5.5); LYMPHOCYTES % (AUTO) 19.1 % (20.5-51.5); MEAN CORPUSCULAR HEMOGLOBIN 29 pg (27-31); MEAN CORPUSCULAR HGB CONC 33 % (32-36); MEAN CORPUSCULAR VOLUME 90 fL (79.0-98.0); MONOCYTES # (AUTO) 0.9 K/uL (0.0-1.0); MONOCYTES % (AUTO) 13.9 % (1.7-9.3); NEUTROPHILS # (AUTO) 4.1 K/uL (1.8-7.7); NEUTROPHILS % (AUTO) 64.7 % (40.0-70.0); PLATELET COUNT (AUTO) 249 K/uL (130-430); RED BLOOD CELL COUNT(AUTO) 4.38 MIL/uL (4.2-6.2); RED CELL DISTRIBUTION WIDTH 16.1 % (9.0-15.0); WHITE BLOOD COUNT (AUTO) 6.4 K/uL (4.8-10.8)
[2018-12-14 07:38] LABS: CALCIUM 9.1 mg/dL (8.4-11.0); CREATININE 0.84 mg/dL (0.55-1.30); PHOSPHORUS 3.5 mg/dL (2.7-4.5); POTASSIUM 4.1 mmol/L (3.5-5.1)
--- NOTE | 2018-12-14 07:50 | NUR ---
opening note patient is resting in bed, alert and oriented, assessment completed, educated call light system and plan of care, patient verbalized understanding, no other needs addressed at this time, fall/safety precautions in place, new IV was started on the left wrist 22G.
[2018-12-14 08:08] VITALS: BP_SYST 139
[2018-12-14] MEDS: cefTRIAXone 1 GM IVPB PREMIX 50 ML IV SCH (08:50)
[2018-12-14] MEDS: LISINOPRIL 5 MG TABLET PO SCH (08:51)
[2018-12-14] MEDS: LORazepam 1 MG TABLET PO SCH ×2 (08:53→19:40)
[2018-12-14] MEDS: MULTIVITAMINS TAB 1 TABLET PO SCH (08:53)
[2018-12-14] MEDS: METHOCARBAMOL 500 MG TABLET PO SCH ×4 (08:54→19:43)
[2018-12-14] MEDS: DOCUSATE SODIUM 100 MG CAPSULE PO SCH (08:54)
[2018-12-14] MEDS: METOPROLOL SUCCINATE 50 MG TAB.SR.24H (TOPROL XL) PO SCH (08:54)
[2018-12-14] MEDS: GABAPENTIN 300 MG CAPSULE PO SCH ×3 (08:54→19:40)
[2018-12-14] MEDS: SOTALOL HCL 80 MG TABLET PO SCH ×2 (08:54→19:40)
[2018-12-14] MEDS: APIXABAN 2.5 MG TABLET PO SCH ×2 (08:56→19:40)
--- NOTE | 2018-12-14 09:00 | NUR ---
scheduled medications educated on medication uses and side effects, patient verbalized understanding, no other needs addressed at this time, fall/safety precautions in place, IV antibiotic running.
[2018-12-14 09:08] LABS: INR 1.3 (0.80-1.20)
[2018-12-14] MEDS: VANCOMYCIN HCL 1,750 MG in NS 500 ML IV SCH (09:56)
[2018-12-14] MEDS: oxyCODONE HCL 5 MG TABLET PO PRN (10:37)
--- NOTE | 2018-12-14 10:43 | NUR ---
patient off unit going to MRI. Addendum: 12/14/18 at 1153 by Cindy Jerry RN pain medication was given to patient prior to going to MRI.
--- NOTE | 2018-12-14 11:40 | NUR ---
patient back on unit in stable condition.
[2018-12-14 11:51] VITALS: BP_SYST 135
--- NOTE | 2018-12-14 13:20 | NUR ---
called PICC nurse his name is Dean, informed me that his ETA is one hour.
[2018-12-14] MEDS: BALSAM PERU/CASTOR OIL 60 GM OINT...G. TP SCH (13:27)
--- NOTE | 2018-12-14 14:41 | NUR ---
Physical Therapy order was received and the chart reviewed. Patient requested pain medication which the RN was providing when the PICC line nurse arrived. Therefore, PT evaluation will be attempted tomorrow and RN will ask Dr. Lobato to clarify the patient's weight bearing precaution on the LLE given his history of left foot fracture. Patient is in agreement. His son is present.
--- NOTE | 2018-12-14 14:42 | NUR ---
PICC nurse in room son in the room, pain medication was given per patient request, PT came to see patient and requested for Dr Lobato to clarify how much weight bearing can be done on the left foot.
[2018-12-14 15:06] VITALS: BP_SYST 153
--- NOTE | 2018-12-14 16:30 | NUR ---
wound care and Dr Lobato rounds Dr Lobato came to speak to the patient about the MRI results, I asked Dr Lobato about weight bearing on the foot for PT, he says no weight bearing on the left foot and the patient needs to be cleared by his neurosurgeon about any PT. Wound care was done and patient tolerated well.
--- NOTE | 2018-12-14 18:42 | NUR ---
closing note patient is resting in bed, no needs addressed at this time, fall/safety precautions in place, IV fluids running with no signs of infiltration, will endorse report to noc shift nurse to continue with care, I spoke to Dr Lobato and he recommends patient getting cleared from his neurosurgeon for an PT, PICC line dressing intact, no signs of distress.
--- NOTE | 2018-12-14 19:30 | NUR ---
INITIAL NOTE RECEIVED PATIENT ASLEEP BUT AROUSABLE SOON WE MADE ROUNDS. AWAKE, ALERT AND ORIENTED. STARTED TO MOAN AND COMPLAIN OF PAIN ONHIS BACK AND LEFT FOOT. NO SOB NOTED. DENIES ANY N/V AT THIS TIME. BEDREST. DRESSING ON LEFT FOOT CDI. MILD EDEMA ON BLE. ADVISED TO ELEVATE BLE ON PILLOW WHILE IN BED. IVF INFUSING ON PICC LINE GE[place]N, DRESSING CDI. WILL MEDICATE FOR PAIN. CARE AND MONITORING WILL BE PROVIDED PER PROTOCOL. CALL LIGHT WITHIN REACH. BED ALARM ON AND AT LOWEST POSITION AT ALL TIMES. NEEDS ATTENDED. KEPT WARM AND COMFORTABLE. PATIENT JUST FINISHED EATING DINNER.
--- NOTE | 2018-12-14 19:40 | NUR ---
PAIN MED AND DUE MEDS PATIENT MEDICATED FOR SEVERE BACK AND LEFT FOOT PAIN WELL DUE MEDS REQUESTED BECAUSE HE WANTS TO SLEEP. DUE MEDS GIVEN AND TOLERATED WELL. CHANGED BEDDINGS AND REPOSITIONED PATIENT. ELEVATED BLE WITH PILLOWS. SKIN CARE DONE. KEPT PATIENT CLEAN, DRY AND COMFORTABLE. WILL CONTINUE TO MONITOR.
[2018-12-14] MEDS: VANCOMYCIN HCL 1,250 MG in NS 250 ML IV SCH (19:45)
[2018-12-14 20:00] VITALS: BP_SYST 159
--- NOTE | 2018-12-14 21:00 | NUR ---
RN NOTE PATIENT SLEEPING AT THIS TIME. IVF BAG CHANGED. NO SOB OR GRIMACING NOTED.
--- NOTE | 2018-12-14 23:05 | NUR ---
TRANSFER OF CARE NO CHANGES FROM PREVIOUS ASSESSMENT. PATIENT ASLEEP, MOVES OCCASIONALLY. NO DISTRESS NOTE. ENDORSED TO MAJO LAFLEUR.
[2018-12-15] MEDS: MORPHINE 4 MG/ML INJ. SYRINGE IVP PRN ×6 (00:13→21:26)
--- NOTE | 2018-12-15 00:13 | NUR ---
Pain Pt c/o severe back pain, medicated with Morphine 4mg IVP as needed. Call light within reach. Safety measures maintained. To monitor.
[2018-12-15 01:22] VITALS: BP_SYST 164
--- NOTE | 2018-12-15 01:35 | NUR ---
RN NOTE RECEIVED REPORT BACK FROM RN. PATIENT IS ASLEEP, MOVES OCCASIONALLY. NO DISTRESS NOTED AT THIS TIME. IVF INFUSING.
[2018-12-15] MEDS: oxyCODONE HCL 5 MG TABLET PO PRN ×2 (02:09→10:53)
--- NOTE | 2018-12-15 02:09 | NUR ---
PAIN MED PATIENT IS MOANING AND COMPLAIN OF BACK PAIN. REPOSITIONED FOR COMFORT AND MEDICATED FOR PAIN. WILL CONTINUE TO MONITOR.
--- NOTE | 2018-12-15 03:00 | NUR ---
RN NOTE SLEEPING COMFORTABLY IN BED. NOT IN ACUTE DISTRESS.
[2018-12-15 04:30] VITALS: BP_SYST 152
--- NOTE | 2018-12-15 04:36 | NUR ---
PAIN MED PATIENT ASLEEP BUT EASILY AROUSABLE. COMPLAIN OF SEVERE BACK AND NECK PAIN. MEDICATED FOR PAIN AND REPOSITIONED FOR COMFORT. WILL CONTINUE TO MONITOR.
[2018-12-15 06:06] LABS: EOSINOPHILS # (AUTO) 0.2 K/uL (0.0-0.4); LYMPHOCYTES # (AUTO) 1.2 K/uL (1.0-5.5); MEAN CORPUSCULAR HEMOGLOBIN 29 pg (27-31); MEAN CORPUSCULAR HGB CONC 33 % (32-36); MEAN CORPUSCULAR VOLUME 89 fL (79.0-98.0)
[2018-12-15 06:19] LABS: C-REACTIVE PROTEIN QUANT 13.4 mg/dL (0-0.5); CALCIUM 8.5 mg/dL (8.4-11.0); CREATININE 0.74 mg/dL (0.55-1.30); POTASSIUM 3.8 mmol/L (3.5-5.1)
--- NOTE | 2018-12-15 06:25 | NUR ---
END NOTE AFEBRILE. VS STABLE. NO COMPLAIN OF SOB OR N/V THROUGHOUT THE NIGHT. MEDICATED FOR PAIN FOUR TIMES ALL NIGHT. IVF INFUSING ON PICC LINE. DRESSING ON LEFT FOOT CDI. AM LABS TODAY. CARE AND MONITORING PROVIDED PER PROTOCOL. CALL LIGHT WITHIN REACH. BED ALARM ON AND AT LOWEST POSITION AT ALL TIMES. NEEDS ATTENDED. KEPT WARM AND COMFORTABLE.
[2018-12-15 06:39] LABS: HEMATOCRIT 37.9 % (36-54); HEMOGLOBIN 12.4 g/dL (14.0-18.0); RED BLOOD CELL COUNT(AUTO) 4.24 MIL/uL (4.2-6.2); RED CELL DISTRIBUTION WIDTH 15.8 % (9.0-15.0); WHITE BLOOD COUNT (AUTO) 6.7 K/uL (4.8-10.8)
[2018-12-15 06:40] LABS: BASOPHILS % (AUTO) 0.7 % (0.0-2.0); EOSINOPHILS % (AUTO) 2.6 % (0.0-4.0); LYMPHOCYTES % (AUTO) 17.9 % (20.5-51.5); MONOCYTES % (AUTO) 15.3 % (1.7-9.3); NEUTROPHILS # (AUTO) 4.3 K/uL (1.8-7.7); NEUTROPHILS % (AUTO) 63.5 % (40.0-70.0); PLATELET COUNT (AUTO) 288 K/uL (130-430)
[2018-12-15 07:53] LABS: ERYTHROCYTE SEDIMENTATION RATE 79 MM/HR (0-15)
[2018-12-15 08:00] VITALS: BP_SYST 165
--- NOTE | 2018-12-15 08:01 | NUR ---
AM NOTES- In bed, awake alert and oriented. Denies any shortness of breath or chest pain. Complain of back pain. Will medicate. Safety precaution observed. Call light within reach. Enc. to call for help as needed.
[2018-12-15] MEDS: cefTRIAXone 1 GM IVPB PREMIX 50 ML IV SCH (08:35)
[2018-12-15] MEDS: GABAPENTIN 300 MG CAPSULE PO SCH ×3 (08:35→20:34)
[2018-12-15] MEDS: METHOCARBAMOL 500 MG TABLET PO SCH ×4 (08:36→20:34)
[2018-12-15] MEDS: DOCUSATE SODIUM 100 MG CAPSULE PO SCH (08:36)
[2018-12-15] MEDS: MULTIVITAMINS TAB 1 TABLET PO SCH (08:36)
[2018-12-15] MEDS: LORazepam 1 MG TABLET PO SCH ×2 (08:36→20:35)
[2018-12-15] MEDS: SOTALOL HCL 80 MG TABLET PO SCH ×2 (08:37→20:40)
[2018-12-15] MEDS: METOPROLOL SUCCINATE 50 MG TAB.SR.24H (TOPROL XL) PO SCH (08:37)
[2018-12-15] MEDS: LISINOPRIL 5 MG TABLET PO SCH (08:38)
--- NOTE | 2018-12-15 08:55 | NUR ---
PHYSICAL THERAPY EVALUATION IS PENDING NEUROLOGY CLEARANCE PER ORTHOPEDIST'S RECOMMENDATION MADE TO THE RN YESTERDAY AFTERNOON. 0RTHO HAS ORDERED NWB LLE PRECAUTION.
[2018-12-15] MEDS: APIXABAN 2.5 MG TABLET PO SCH ×2 (10:15→20:41)
[2018-12-15] MEDS: VANCOMYCIN HCL 1,250 MG in NS 250 ML IV SCH ×2 (10:15→20:34)
--- NOTE | 2018-12-15 11:05 | NUR ---
DC Planning: Faxed referral inquiry to [facility] [phone], [phone]. Addendum: 12/15/18 at 1411 by Maki BUTLERW [facility] Pt does not qualify for admission for the following reasons: requiring 6-8 weeks of IV antibiotics, no 2nd insurance, PT eval pending, no home to DC to per her conversation with Pt. he is being evicted. [facility] may be able to provide hyberbaric oxygen tx through outpatient w/ Dr Garg [phone].
[2018-12-15 12:30] VITALS: BP_SYST 161
[2018-12-15] MEDS: NACL 0.9% 1,000 ML IV SCH (15:21)
--- NOTE | 2018-12-15 15:32 | NUR ---
NOTES-PAGED DR. WOO, WAITING FOR RETURN CALL.
[2018-12-15 16:55] VITALS: BP_SYST 158
[2018-12-15] MEDS: BALSAM PERU/CASTOR OIL 60 GM OINT...G. TP SCH (17:18)
--- NOTE | 2018-12-15 18:27 | NUR ---
Closing Note-Pt asleep, semi-fowlers position. No acute distress noted. Breathing is even and un-labored. Pain controlled at this time. IVF infusing well on right upper arm picc line. All needs met throughout shift. Safety precautions in place, bed in low position with bed alarm on, call light within reach and encourage pt to use for assistance. Will continue to monitor until pt care is endorsed to assistant shift supervisor nurse.
--- NOTE | 2018-12-15 19:10 | NUR ---
CHANGE OF SHIFT; pt. resting when received, still noted with some left leg pain even, was just medicated before arrival. IVF infusing via rt. upper arm with PICC line with NS @ 80 cc./hr. dinner tray at bedside , still has not eaten. on fall risk precautions. call light at bedside. will reassess later.
[2018-12-15 20:30] VITALS: BP_SYST 172
[2018-12-15] MEDS: hydrALAZINE HCL 20 MG/ML VIAL IVP PRN (21:21)
--- NOTE | 2018-12-15 21:30 | NUR ---
NOTES: pt. awake, medicated for c/o left leg pain, MS IV given as ordered. instructed to reposition self when feeling a little better after pain med get effective. HOB elevated, with family member at bedside. IVF patent, medicated also for high BP 172/99.pt. needs attended.call light at bedside.
--- NOTE | 2018-12-15 22:45 | NUR ---
NOTES: pt. called and needs help to reposition. back care done, left leg elevated, on mid fowlers position, wants to stay on his back. call light at bedside.
[2018-12-16 00:14] VITALS: BP_SYST 150
--- NOTE | 2018-12-16 00:51 | NUR ---
NOTES: awakened and was assisted by nurse Marlo to the restroom, voided and had BM.
[2018-12-16] MEDS: MORPHINE 4 MG/ML INJ. SYRINGE IVP PRN ×5 (01:33→17:45)
--- NOTE | 2018-12-16 01:35 | NUR ---
NOTES: medicated with MS IV for c/o generalized pain, sea. on his back, both legs. repositioned self. pt. needs attended, wants pain pill in between. condition observed. pt. been voiding per urinal.
--- NOTE | 2018-12-16 02:30 | NUR ---
NOTES: pt. sleeping when checked, in no distress.
[2018-12-16] MEDS: oxyCODONE HCL 5 MG TABLET PO PRN ×4 (03:25→16:30)
--- NOTE | 2018-12-16 03:28 | NUR ---
NOTES: pt. was sleeping when checked and when awakened starts moaning for pain, medicated with oral pain med as requested with Oxycodone. condition unchanged. call light at bedside. been voiding frequently per urinal.
--- NOTE | 2018-12-16 04:36 | NUR ---
NOTES: pt. sleeping at intervals, pretty calm at this time. continue to monitor.
[2018-12-16] MEDS: NACL 0.9% 1,000 ML IV SCH (05:37)
--- NOTE | 2018-12-16 05:40 | NUR ---
NOTES: pt. awakened and c/o generalized pain sea. back and both feet. IVF patent. does not want to move at this time. kept HOB elevated. needs attended.
--- NOTE | 2018-12-16 06:36 | NUR ---
CLOSING NOTES; pt. resting calmly after pain medication given. left foot dressing intact, kept elevated with pillow, wants to stay on his back all the time. IVF intact. safety measures in place. for further care and assistance. call light within reach.
[2018-12-16 07:11] LABS: BASOPHILS % (AUTO) 0.5 % (0.0-2.0); EOSINOPHILS # (AUTO) 0.2 K/uL (0.0-0.4); EOSINOPHILS % (AUTO) 3.3 % (0.0-4.0); HEMATOCRIT 37.6 % (36-54); HEMOGLOBIN 12.4 g/dL (14.0-18.0); LYMPHOCYTES # (AUTO) 1.5 K/uL (1.0-5.5); LYMPHOCYTES % (AUTO) 24.1 % (20.5-51.5); MEAN CORPUSCULAR HEMOGLOBIN 30 pg (27-31); MEAN CORPUSCULAR HGB CONC 33 % (32-36); MEAN CORPUSCULAR VOLUME 90 fL (79.0-98.0); MONOCYTES # (AUTO) 0.7 K/uL (0.0-1.0); MONOCYTES % (AUTO) 11.1 % (1.7-9.3); NEUTROPHILS # (AUTO) 3.8 K/uL (1.8-7.7); PLATELET COUNT (AUTO) 347 K/uL (130-430); RED BLOOD CELL COUNT(AUTO) 4.18 MIL/uL (4.2-6.2); RED CELL DISTRIBUTION WIDTH 15.9 % (9.0-15.0); WHITE BLOOD COUNT (AUTO) 6.3 K/uL (4.8-10.8)
[2018-12-16 07:28] LABS: CALCIUM 8.6 mg/dL (8.4-11.0); CREATININE 0.74 mg/dL (0.55-1.30)
[2018-12-16] MEDS: DOCUSATE SODIUM 100 MG CAPSULE PO SCH ×3 (07:51→08:48)
[2018-12-16] MEDS: cefTRIAXone 1 GM IVPB PREMIX 50 ML IV SCH (07:51)
[2018-12-16] MEDS: LORazepam 1 MG TABLET PO SCH (07:52)
[2018-12-16] MEDS: MULTIVITAMINS TAB 1 TABLET PO SCH (07:53)
[2018-12-16] MEDS: METHOCARBAMOL 500 MG TABLET PO SCH ×3 (07:53→17:23)
[2018-12-16] MEDS: SOTALOL HCL 80 MG TABLET PO SCH (07:53)
[2018-12-16] MEDS: LISINOPRIL 5 MG TABLET PO SCH (07:53)
[2018-12-16] MEDS: METOPROLOL SUCCINATE 50 MG TAB.SR.24H (TOPROL XL) PO SCH (07:54)
[2018-12-16] MEDS: APIXABAN 2.5 MG TABLET PO SCH (07:55)
[2018-12-16 08:00] VITALS: BP_SYST 166
[2018-12-16] MEDS: GABAPENTIN 300 MG CAPSULE PO SCH ×2 (08:54→15:05)
[2018-12-16] MEDS: VANCOMYCIN HCL 1,250 MG in NS 250 ML IV SCH (08:55)
--- NOTE | 2018-12-16 09:30 | NUR ---
Mobility UP with the physical therapy with left leg nino , partial weight bearing unsteady with pain tolerable, fall/safety precaution initiated.
--- NOTE | 2018-12-16 11:03 | NUR ---
Discharge Planning: DCP faxed referral to [facility] (f [phone] p [phone]) DCP to follow up. Addendum: 12/16/18 at 1438 by Janeth Boland DP [facility] (f [phone] p [phone]) Bunny came to hospital to fit patient for fracture boot. Addendum: 12/16/18 at 1559 by Janeth Boland DP [facility] (f [phone] p [phone]) fitted Fracture boot [facility] ([phone]) [address] [facility] ([phone]) Will Call, patient packet taken to to nurse station.
[2018-12-16 12:36] VITALS: BP_SYST 159
--- NOTE | 2018-12-16 13:00 | NUR ---
Leg nino fit in by Bunny from [facility] large size fitted , stockinet provided.
[2018-12-16] MEDS: BALSAM PERU/CASTOR OIL 60 GM OINT...G. TP SCH (13:37)
--- NOTE | 2018-12-16 14:00 | NUR ---
Wound care Premedicate patient prior to wound care , wound care completed by wound care nurse, eft leg kept elevated to pillow, picture taken for documentation.
--- NOTE | 2018-12-16 14:02 | NUR ---
DC Planning: Hyperbaric tx set up at [facility] out patient: >> Faxing the referral inquire package attn to Jen/Makeda at [facility] fax#,tel#[phone] x [phone]. Per Jen: Dr. Garg and Makeda will evaluate for admission. She will call back today or Wednesday with the schedule if accepted. In addition, she will notify the pt as well. CM will f/u and notify nursing facility to f/u.
--- NOTE | 2018-12-16 14:25 | NUR ---
WOUND RE-EVALUATION: Patient re-evaluated for wound care, Naun score is 14. Patient received in a [place] Bed, awake, alert, and oriented. Patient is able to turn independently. Patient was provided education on wound care and verbalizes understanding. Wound Assessment: 1. Left lateral leg Scar tissue from prior wound present on admission. Site is 100% pink scar tissue. No odor, no drainage. Surrounding tissue intact. Site measures 1 cm x 2 cm. Recommend: No dressing needed. Continue to monitor q shift. 2. Left plantar foot Wound, present on admission. Wound bed is 70% yellow slough, 5% pink, 25% red. Scant serous drainage. No odor. Jeyson-wound yellow callus and hard edges. Wound measures 2.5 cm x 1.8 cm x 0.5 cm. Recommend: Cleanse wound with normal saline. Pat dry. Place moisture barrier cream onto jeyson-wound. Apply venelex to wound bed. Pack with iodoform gauze. Cover with foam dressing. Wrap foot with nitish wrap. Perform wound care daily, and as needed for dressing soiling or dislodgement. 3. Left dorsal foot Non-blanchable erythema with hard feel. Surrounding tissue intact. No odor, no drainage. Recommend: Apply foam dressing to dorsal foot for protection and include with nitish wrap when dressing plantar foot. Assess for areas susceptible to pressure from orthopedic boot before applying to patient. Assess for pulse and color as patient has loss of sensory to left lower extremity. Also recommend: Reposition patient every 2 hours with pillow support and off-load pressure areas with pillows for pressure re-distribution. Offload, elevate and float bilateral heels with pillows. Perform skin care and monitor skin integrity Q shift.
--- NOTE | 2018-12-16 14:59 | NUR ---
DC Planning: SNF set up, >> late entry: JACQUELINE/Kalyani did the snf searching yesterday: faxed referral inquiry to [facility] fax# [phone], tel # [phone]-- per Kaitlin unable to accept dt no male bed. >> Faxed to [facility] # [phone], tel # [phone], per Jaspal: the patient is accepted. CM will notify pt if agreed to go to this facility. >> today: faxed pt's info to [facility], fax# [phone], tel # [phone]: case is being review for admission. >> today: faxed pt's info to [facility], fax # [phone], tel # [phone]: per Angela, the patient is accepted. CM to get patient agreement for the transfer. Angela made aware and with her confirmation to f/u with [facility] for the hyperbaric wound treatment schedule at [facility], [facility] out patient clinic phone # [phone] fax# [phone] attn: Makeda Li admitting dept.-- MAJO Hernandez made aware. Addendum: 12/16/18 at 1640 by Nitish Payne RN >> Per VIRGIE Cheng: the pt agreed with transferring to [facility]. see healthcare social worker /Skylar 's note for detail.
--- NOTE | 2018-12-16 15:30 | NUR ---
Drawing Machine Operator/Discharge Planning LAWN CARE PROFESSIONAL met with patient and CM Nitish and Kalyani at bedside. Discussed that SNF placement with PT and IV antibiotics with transport to and from hyperbaric O2 treatment is patient's best chance for improved health. After much discussion and his son Al arriving and participating, patient agreed. Patient is oriented but sleepy. Asked if LAWN CARE PROFESSIONAL could have Troy with [employer] work with Al to assist with [employer] application; patient agreed and LAWN CARE PROFESSIONAL provided phone number to Troy. CM and DC Coordinator will arrange transportation.
--- NOTE | 2018-12-16 15:45 | NUR ---
Paged Dr. Pineda for discharge order
[2018-12-16 16:00] VITALS: BP_SYST 146
[2018-12-16] MEDS: hydrALAZINE HCL 20 MG/ML VIAL IVP PRN (16:20)
--- NOTE | 2018-12-16 16:30 | NUR ---
Acknowledgement of transfer signed.
--- NOTE | 2018-12-16 16:32 | NUR ---
Nutrition F/U Reviewed pts current EMR including diet Hx, physician notes, nursing notes, pertinent labs/meds/procedures, car trends, and care activity. Current Diet Order/Nutrition Support Regular, Ensure Enlive TID, Jose Cruz BID x3 day Subjective Information Pt was seen resting with son at bedside and nurse providing care. Pt stated no N/V/D/C and that his appetite has improved. Pt stated intake of Jose Cruz BID, Ensure Enlive TID, and enjoys snacks TID. Bed scale reported 232 lb may be inaccurate due to linen. Pt pending D/C and transfer to SNF. Pertinent Medications MVI, Eliquis, betapace, Colace, vancomycin Pertinent Labs Na 138 WNL, CRP 13.4 H (trending down), POC BG 134 H (trending up) 12/13/18: HDL 8 L, TG 151 H Last BM Dec 16, 2018 Skin Integrity Comment: Naun scale: 14 and reported pale skin per nursing notes, lateral L lower leg w/ wound and L lower foot w/ wound. Current % PO 71% PO intake x6 meals/ 1 meal refusal MODIFIED Estimated Energy Expenditure (kcals/day) 6459-9055 kcal/day (MSJ 1.2-1.5 AF for wound healing, infection) MODIFIED Estimated Protein Required (g/day) 94-117 gm/day (1.2-1.5gm/day ABW for malnutrition, wound healing, infection) Estimated Fluid Required (l/day) 2.1-2.7 L/day (1mL/kcal for adult maintenance) Problem/Etiology/Signs/Symptoms Suboptimal PO intake related to lack of appetite as evidence by eating poorly >1 week due to reduced appetite, negligible PO intake records, and unhealed wounds at time of admission. (*ongoing, but improving) Expected Outcomes/Goals - Monitor appetite and PO intake w/ goals of pt meeting greater than 75% of estimated nutritional needs, labs trending WNL, and skin integrity/wt maintenance. Dietitian Recommendations * Recommend continuing regular diet w/ Ensure Enlive TID, Jose Cruz BID (1230 kcal/day, 65 gm pro/day) * Encourage PO intake for >75% * Recommend continuing snacks TID Follow Up Moderate Risk: F/U in 3-5 days Signed: 12/16/18 at 1632 by Kristina RAYA <Co-Signature Required> Co-Signed: 12/16/18 at [address]
--- NOTE | 2018-12-16 16:34 | NUR ---
Dietitian Recommendations * Recommend continuing regular diet w/ Ensure Enlive Jose Cruz LOPEZ BID (1230 kcal/day, 65 gm pro/day) * Encourage PO intake for >75% * Recommend continuing snacks TILizbeth JOSE, Public Relations Representative Please refer to Nutrition F/U for details. Signed: 12/16/18 at 1635 by Kristina RAYA <Co-Signature Required> Co-Signed: 12/16/18 at [address]
--- NOTE | 2018-12-16 17:00 | NUR ---
Report given to [facility] staff Lino Vaughan with all the information, Ancef 1st dose given.
[2018-12-16] MEDS ORDERED: CEFA1FRO IV (17:17)
[2018-12-16 17:46] VITALS: BP_SYST 143
[2018-12-16] MEDS ORDERED: ceFAZolin SODIUM 1 GM in D5W 50 ML IV SCH (18:00)
--- NOTE | 2018-12-16 18:14 | NUR ---
Due antibiotic completed with out adverse reaction.
--- NOTE | 2018-12-16 19:10 | NUR ---
Discharged via ambulance to [facility] with all the belongings taken , endorsed to tiger machine operator.
--- NOTE | 2018-12-17 09:48 | NUR ---
Discharge Planning: DCP refaxed pt referral ti [facility] (f [phone] p [phone]) DCP to follow up.
== END 2018-12-16 19:10 | DRG 540 ==
LOC: SED 21:33 → SMU 12-12 04:29
PROVIDERS: ADMIT Family Medicine; ATTEND Family Medicine
PROC: 02HV33Z Insertion of Infusion Device into Superior Vena Cava, Percutaneous Approach (ICD-10-PCS; principal; 2018-12-14)
PROC: B548ZZA Ultrasonography of Superior Vena Cava, Guidance (ICD-10-PCS; 2018-12-14)
DX: M86.8X7 Other osteomyelitis, ankle and foot (principal); E44.0 Moderate protein-calorie malnutrition; I16.0 Hypertensive urgency; L97.529 Non-pressure chronic ulcer of other part of left foot with unspecified severity; B95.61 Methicillin susceptible Staphylococcus aureus infection as the cause of diseases classified elsewhere; F10.10 Alcohol abuse, uncomplicated; G62.9 Polyneuropathy, unspecified; G89.4 Chronic pain syndrome; F19.10 Other psychoactive substance abuse, uncomplicated; R74.0 Nonspecific elevation of levels of transaminase and lactic acid dehydrogenase [LDH]; I10 Essential (primary) hypertension; M47.812 Spondylosis without myelopathy or radiculopathy, cervical region; M47.816 Spondylosis without myelopathy or radiculopathy, lumbar region; Z96.643 Presence of artificial hip joint, bilateral; E66.9 Obesity, unspecified; Z98.1 Arthrodesis status; Z79.899 Other long term (current) drug therapy; Z68.33 Body mass index [BMI] 33.0-33.9, adult
CPT/HCPCS: 36415; 71045; 72125-TC; 72128; 72131; 72141; 72170-TC; 73720; 80048; 80053; 80061; 80202-TC; 80307; 81000-TC; 82550-TC; 83036; 83605; 83735-TC; 84100-TC; 84439; 84443-TC; 84484; 85025; 85610-TC; 85651-TC; 85730-TC; 86140; 87040-TC; 87070-TC; 87186-TC; 93005; 93923; 93970; 96365; 96375; 96376; 99285; A9579; C1751; J0360; J0690; J0696; J2270; J2543; J3370; J7030; J7040; J7050; J7060

== ENCOUNTER 2019-03-03 13:29 | Inpatient (IN) | payer OTHER ==
[2019-03-03] VITALS (7 sets, daily range): BP systolic 1–152
[~2019-03-03] VITALS: Ht 177.8 cm; Wt 99.8 kg
[~2019-03-03 13:29] MED LIST changes: +CEFA1FRO IV
--- NOTE | 2019-03-03 13:29 | NUR ---
ER at bedside examining patient.
--- NOTE | 2019-03-03 13:29 | NUR ---
Patient to ER bed 7 to gown for evaluation. Side rails up. Report given to
--- NOTE | 2019-03-03 13:40 | NUR ---
IV access obtained in both ac left and right by RN Ehsan and another RN . 20g in one attempt. Blood drawn at same time. Pt has SVT on the monitor and MD has ordered Adenosine 6 mg, then 12 mg. Given as ordered. Cardizem ordered 20mg IVP, then Cardizem drip at 10 mg/h, then raised to 15mg/h via MD [place]. pt is diophorectic, and c/o neck pain. Morphine and asa given.
[2019-03-03] MEDS ORDERED: ADENOSINE 6MG/2ML VIAL ONE ×2 (14:07→14:12)
[2019-03-03] MEDS ORDERED: DILTIAZEM HCL 25 MG/5 ML VIAL ONE (14:16)
[2019-03-03] MEDS ORDERED: MORPHINE 4 MG/ML INJ. SYRINGE ONE (14:17)
[2019-03-03] MEDS ORDERED: ASPIRIN 325 MG TABLET (ECOTRIN) PO ONE (14:18)
[2019-03-03] MEDS ORDERED: NITROGLYCERIN 1 INCH (GM) OINT. ONE (14:18)
[2019-03-03 15:03] LABS: ANION GAP 9 (5-15); CHLORIDE 103 mmol/L (98-107); POTASSIUM 3.3 mmol/L (3.5-5.1); SODIUM SERUM 139 mmol/L (136-145)
[2019-03-03] MEDS ORDERED: IOHEXOL 350 mgI/mL, 150 ML INFUS..BTL IV ONE (15:03)
[2019-03-03 15:04] LABS: CALCIUM 9.9 mg/dL (8.4-11.0); CREATININE 1.03 mg/dL (0.55-1.30); GFR AFRICAN AMERICAN 96 mL/min (>90); GLUCOSE 102 mg/dL (70-99); TOTAL BILIRUBIN 1.2 mg/dL (0.0-1.0); UREA NITROGEN, BLOOD 17 mg/dL (8-21)
[2019-03-03 15:05] LABS: ALANINE AMINOTRANSFERASE 19 U/L (12-78); ALBUMIN 2.2 g/dL (3.4-4.8); ASPARTATE AMINOTRANSFERASE 13 U/L (10-37)
[2019-03-03 15:12] LABS: EOSINOPHILS # (AUTO) 0.2 K/uL (0.0-0.4); EOSINOPHILS % (AUTO) 1.4 % (0.0-4.0)
[2019-03-03] MEDS ORDERED: LABETALOL 100 MG/ 20ML VIAL IVP ONE (15:15)
[2019-03-03 15:16] LABS: BASOPHILS # (AUTO) 0.1 K/uL (0.0-0.2); BASOPHILS % (AUTO) 0.4 % (0.0-2.0); HEMATOCRIT 34.2 % (36-54); HEMOGLOBIN 11.4 g/dL (14.0-18.0); LYMPHOCYTES # (AUTO) 1.1 K/uL (1.0-5.5); LYMPHOCYTES % (AUTO) 7.7 % (20.5-51.5); MEAN CORPUSCULAR HEMOGLOBIN 28 pg (27-31); MEAN CORPUSCULAR HGB CONC 33 % (32-36); MEAN CORPUSCULAR VOLUME 84 fL (79.0-98.0); MONOCYTES # (AUTO) 1.1 K/uL (0.0-1.0); MONOCYTES % (AUTO) 8.3 % (1.7-9.3); NEUTROPHILS # (AUTO) 11.2 K/uL (1.8-7.7); NEUTROPHILS % (AUTO) 82.2 % (40.0-70.0); PLATELET COUNT (AUTO) 335 K/uL (130-430); RED BLOOD CELL COUNT(AUTO) 4.07 MIL/uL (4.2-6.2); RED CELL DISTRIBUTION WIDTH 15.3 % (9.0-15.0); WHITE BLOOD COUNT (AUTO) 13.6 K/uL (4.8-10.8)
[2019-03-03] MEDS ORDERED: MORPHINE 4 MG/ML INJ. SYRINGE IVP ONE (15:45)
--- NOTE | 2019-03-03 16:00 | NUR ---
RN accompanied pt to CT scan.
[2019-03-03] MEDS ORDERED: FOLIC ACID 1 MG, MVI 10 ML in NACL 0.9% 1,000 ML IV ONE (16:15)
--- NOTE | 2019-03-03 16:24 | NUR ---
RN and pt back from CT. pt back on monitor. pt is much improved on HR and blood pressure.
[2019-03-03] MEDS ORDERED: NS IV ONE (16:30)
[2019-03-03] MEDS ORDERED: THIAMINE HCL IV ONE (16:30)
[2019-03-03] MEDS ORDERED: MAGNESIUM SULFATE IV ONE (16:30)
[2019-03-03] MEDS ORDERED: NEU300 PO (16:32)
[2019-03-03] MEDS ORDERED: ATEN-167 PO (16:32)
--- NOTE | 2019-03-03 16:44 | NUR ---
pt will be admitted to ICU. RN placing pt on transport monitor and obtaining 1 more set of VS> pt is improved on b/p and HR.
--- NOTE | 2019-03-03 17:10 | NUR ---
Received pt from Er to ICU bed 5 with belongings. Pt alert and oriented. Monitor shows HR 135 in afib, irregular. Pt c/o pain everywhere. BP stable. Pt has a 20g to both left and right AC. Cardizem drip infusing at 15 mcg/hr to left AC. Lungs clear. 02 sats 95% on room air. Lungs clear B/L. Abd soft with bowel sounds. Lower left leg swollen with a weak pedal pulse. Right leg no swelling and pulse present. The bottom of the left foot has a puncture moncho as if he stepped on something sharp. Area noted to be yellow and not red or pink. Pt states he walks with a walker and crutches. Will continue to monitor.
--- NOTE | 2019-03-03 17:25 | NUR ---
Pt noted to be SR on the montior with HR 75. C.ardizem drip infusing at 15 mcg/hr. Cardizem decreased to 10 mg/hr
--- NOTE | 2019-03-03 17:39 | NUR ---
Called Dr. Santamaria with a consult, Dr. Curtis spring production supervisor at this time spoke with Josemanuel from the exchange
--- NOTE | 2019-03-03 17:44 | NUR ---
Dr. Lambert in to see pt. Orders left. MRSA swab sent to lab.
--- NOTE | 2019-03-03 18:42 | NUR ---
Cardizem drip decreased to 5 mg/hr. HR 75 and regular. Call out to Dr. Curtis.
[2019-03-03] MEDS ORDERED: FLU VACC QS2019-20 36MOS UP/PF 60 MCG/0.5 ML SYRINGE I.M. PRN (18:45)
[2019-03-03] MEDS: OXYCODONE/ACETAMINOPHEN 5-325 TABLET PO PRN (18:56)
[2019-03-03] MEDS: chlordiazePOXIDE HCL 25 MG CAPSULE PO PRN (18:57)
--- NOTE | 2019-03-03 19:00 | NUR ---
Spoke with Dr. Acosta regarding banana bag IV ordered tonight. I requested if it could be started tomorrow when pharmacy was here to mix it and he agreed and left an IVF to run tonight and then in the morning it can be changed to the banana bag. Endorsed to shane KASPER in report.
[2019-03-03] MEDS ORDERED: THIAMINE HCL 100 MG/ML VIAL ONE (19:01)
[2019-03-03] MEDS ORDERED: MVI 10 ML VIAL IV ONE (19:02)
--- NOTE | 2019-03-03 19:10 | NUR ---
Spoke with Dr. Curtis regarding pts converting to SR rate 70's with cardizem drip down to 5mg/hr. Orders received to give betapace when due tonight at 2100 and then one hour later turn off cardizem drip. Endorsed to oncoming RN in report.
[2019-03-03] MEDS: THIAMINE HCL 100 MG TABLET PO SCH (19:15)
[2019-03-03] MEDS ORDERED: DILTIAZEM HCL 125 MG in D5W 100 ML IV SCH ×4 (19:30)
[2019-03-03] MEDS: IBUPROFEN 800 MG TABLET PO SCH (21:07)
[2019-03-03] MEDS: SOTALOL HCL 80 MG TABLET PO SCH (21:08)
[2019-03-03] MEDS: GABAPENTIN 300 MG CAPSULE PO SCH (21:08)
[2019-03-03] MEDS ORDERED: IBUPROFEN 800 MG TABLET ONE (21:17)
[2019-03-03] MEDS: KCL 20 mEq in D5/0.45NS 1000mL 1,000 ML IV SCH (22:30)
[2019-03-03] MEDS ORDERED: KCL 20 mEq in 100 mL (PREMIX) 100 ML IV ONE (22:39)
[2019-03-04] VITALS (18 sets, daily range): BP systolic 106–151
[2019-03-04] MEDS: IBUPROFEN 800 MG TABLET PO SCH ×4 (04:22→23:20)
[2019-03-04] MEDS: OXYCODONE/ACETAMINOPHEN 5-325 TABLET PO PRN ×4 (04:24→21:40)
--- NOTE | 2019-03-04 09:44 | NUR ---
Nutrition Update Naun Scale 18 noted. Pt admitted for rapid ventricular response. Diet: cardiac BMI: 31.6 kg/m2 RD to follow per nutrition care standards.
[2019-03-04] MEDS: GABAPENTIN 300 MG CAPSULE PO SCH ×3 (09:46→21:39)
[2019-03-04] MEDS: APIXABAN 2.5 MG TABLET PO SCH ×2 (09:47→21:40)
[2019-03-04] MEDS: THIAMINE HCL 100 MG TABLET PO SCH (09:47)
[2019-03-04] MEDS: SOTALOL HCL 80 MG TABLET PO SCH ×2 (09:53→21:39)
[2019-03-04] MEDS ORDERED: METOPROLOL SUCCINATE 50 MG TAB.SR.24H (TOPROL XL) PO ONE (11:45)
[2019-03-04] MEDS: ACETAMINOPHEN 325 MG TABLET PO PRN ×2 (11:55→14:35)
[2019-03-04] MEDS: KCL 20 mEq in D5/0.45NS 1000mL 1,000 ML IV SCH ×2 (12:00→21:55)
--- NOTE | 2019-03-04 17:59 | NUR ---
TOTAL DAY PT ONLY C/O NECK PAIN FROM ONE OF THE MANY ACCIDENTS AND INJURIES PT CONTINUES TO ACCUMULATE//HR IS SINUS ALL DAY AND WITH NO ECTOPY, CHEST PAIN OR SOB/VS STABLE ALL DAY/PT CONSUMED 80% OF BREAKFAST, AND 100% OF DINNER WITH NO SWALLOWING ISSUES WHATSOEVER//MW
--- NOTE | 2019-03-04 18:35 | NUR ---
RECEIVED PT FROM ICU Received report from Nimisha KASPER and Al KASPER from ICU. Received pt AAOx4, no s/s resp distress, no c/o pain or discomfort. Side rails up x3 for safety. Call light within reach.
--- NOTE | 2019-03-04 18:56 | NUR ---
PT XFRRED TO TELEMETRY/ALL QUESTIONS ANSWERED//REPORT TO MEDINA/PORTILLO RN/MW
--- NOTE | 2019-03-04 19:15 | NUR ---
OPENING NOTES Bedside report received from dayshift nurse. Patient received lying in bed, eyes closed, sleeping, no s/s of acute distress noted. Breathing is even and unlabored. IVF infusing well, IV site patent, no signs of infiltration or infection noted. Call light with patient. Bed locked and at lowest position. Will continue to monitor.
--- NOTE | 2019-03-04 21:00 | NUR ---
ROUNDS/BATHROOM Patient requested help to bathroom, assisted by RN and SKEWER UP with FWW. Patient tolerated well, steady gait with pain. Call light with patient. Will continue to monitor.
--- NOTE | 2019-03-04 23:00 | NUR ---
ROUNDS Patient in bed, eyes closed, appears to be asleep. No s/s of acute distress noted. Breathing is even and unlabored. IVF infusing well. Call light with patient. Will continue to monitor.
[2019-03-05] VITALS (7 sets, daily range): BP systolic 140–188
[2019-03-05] MEDS: OXYCODONE/ACETAMINOPHEN 5-325 TABLET PO PRN ×5 (01:42→19:46)
[2019-03-05] MEDS: IBUPROFEN 800 MG TABLET PO SCH ×2 (05:44→20:31)
--- NOTE | 2019-03-05 06:50 | NUR ---
CLOSING NOTES Patient in bed, awake, no s/s of acute distress noted. Breathing even and unlabored. HOB raised. IVF infusing well, IV site patent, no signs of infiltration or infection noted. Marquez attached, secured, and draining by gravity. All needs met throughout shift. Fall and safety precautions maintained throughout shift. Will continue to monitor until patient care is endorsed to [facility] nurse. Addendum: 03/05/19 at 0701 by Aleks Chaidez RN INPUT FOR WRONG PATIENT
--- NOTE | 2019-03-05 07:02 | NUR ---
CLOSING NOTES Patient in bed asleep. No s/s of acute distress. Breathing even and unlabored. IVF infusing well. All needs met. Bed locked and at lowest position. Will continue to monitor until endorsed to oncoming dayshift nurse.
[2019-03-05 07:54] LABS: BASOPHILS % (AUTO) 0.5 % (0.0-2.0); EOSINOPHILS # (AUTO) 0.3 K/uL (0.0-0.4); HEMATOCRIT 31.1 % (36-54); HEMOGLOBIN 10.5 g/dL (14.0-18.0); LYMPHOCYTES # (AUTO) 1.2 K/uL (1.0-5.5); LYMPHOCYTES % (AUTO) 12.3 % (20.5-51.5); MEAN CORPUSCULAR HEMOGLOBIN 28 pg (27-31); MEAN CORPUSCULAR HGB CONC 34 % (32-36); MEAN CORPUSCULAR VOLUME 83 fL (79.0-98.0); MONOCYTES # (AUTO) 1.1 K/uL (0.0-1.0); NEUTROPHILS # (AUTO) 7.2 K/uL (1.8-7.7); NEUTROPHILS % (AUTO) 73.2 % (40.0-70.0); PLATELET COUNT (AUTO) 309 K/uL (130-430); RED BLOOD CELL COUNT(AUTO) 3.75 MIL/uL (4.2-6.2); RED CELL DISTRIBUTION WIDTH 15.3 % (9.0-15.0); WHITE BLOOD COUNT (AUTO) 9.8 K/uL (4.8-10.8)
--- NOTE | 2019-03-05 08:00 | NUR ---
0800 in so much pain at the neck back repositioned medicated for pain
[2019-03-05 08:25] LABS: ALANINE AMINOTRANSFERASE 18 U/L (12-78); ALBUMIN 1.7 g/dL (3.4-4.8); ANION GAP 8 (5-15); CALCIUM 8.9 mg/dL (8.4-11.0); CHLORIDE 106 mmol/L (98-107); CREATININE 1.01 mg/dL (0.55-1.30); GLUCOSE 110 mg/dL (70-99); POTASSIUM 3.7 mmol/L (3.5-5.1); SODIUM SERUM 138 mmol/L (136-145); THYROID STIMULATING HORMONE 0.36 uIu/mL (0.36-3.74); TOTAL BILIRUBIN 0.7 mg/dL (0.0-1.0); UREA NITROGEN, BLOOD 16 mg/dL (8-21)
[2019-03-05 08:33] LABS: GFR AFRICAN AMERICAN 99 mL/min (>90)
[2019-03-05 09:18] LABS: ASPARTATE AMINOTRANSFERASE 30 U/L (10-37)
[2019-03-05] MEDS: METOPROLOL SUCCINATE 50 MG TAB.SR.24H (TOPROL XL) PO SCH (10:20)
[2019-03-05] MEDS: THIAMINE HCL 100 MG TABLET PO SCH (10:21)
[2019-03-05] MEDS: GABAPENTIN 300 MG CAPSULE PO SCH ×3 (10:21→20:30)
[2019-03-05] MEDS: APIXABAN 2.5 MG TABLET PO SCH ×2 (10:24→20:32)
[2019-03-05] MEDS: SOTALOL HCL 80 MG TABLET PO SCH ×2 (10:25→20:29)
[2019-03-05] MEDS: KCL 20 mEq in D5/0.45NS 1000mL 1,000 ML IV SCH (11:26)
--- NOTE | 2019-03-05 12:00 | NUR ---
1200 awake medicated for complain of pain
[2019-03-05 12:04] LABS: CHOLESTEROL 134 mg/dL (<200); HDL CHOLESTEROL 8 mg/dL (>45); LDL CHOLESTEROL 77 mg/dL (<100); TRIGLYCERIDES 197 mg/dL (30-150)
--- NOTE | 2019-03-05 14:00 | NUR ---
1400 medicated for pain son in to visit stay for igobubble and father slept for a long time
--- NOTE | 2019-03-05 14:40 | NUR ---
Dietitian Recommendations 1. Continue Cardiac lochol/lofat/2gNa diet 2. Ensure Enlive TID with meals. Each serving provides 350kcal and 20gPro. 3. Encourage PO intake as tolerated 4. Provide assistance with meals Please see Nutrition Assessment for further details. LT, RD
--- NOTE | 2019-03-05 17:00 | NUR ---
1700 assist with feeding ate 100% of food slept thereafter
--- NOTE | 2019-03-05 19:20 | NUR ---
OPENING NOTES RECEIVED PATIENT IN BED AWAKE. BREATHING UNLABORED ON ROOM AIR. REFUSING TO BE CONNECTED TO IVF AT THIS TIME. PATIENT REPOSITIONED FOR COMFORT.PATIENT WOULD LIKE TO BE MEDICATED FOR PAIN. BED IN LOWEST LOCKED POSITION. CALL LIGHT WITH IN REACH.
--- NOTE | 2019-03-05 19:46 | NUR ---
PAIN MGT PATIENT MEDICATED WITH PERCOCET FOR C/O NECK PAIN. BP 188/102. SAFETY PRECAUTIONS IN PLACED.
--- NOTE | 2019-03-05 20:32 | NUR ---
MED PASS PATIENT DUE MEDICATIONS GIVEN. PERCOCET INEFFECTIVE. MEDICATED WITH MOTRIN ORDERED TAKEN WITH FOOD.
[2019-03-06] VITALS: BP_SYST 163
--- NOTE | 2019-03-06 00:23 | NUR ---
BP PATIENT BLOOD PRESSURE 182/106. SPOKE WITH DR. LI FOR PRN ORDER. NEW ORDER FOR CLONIDINE GIVEN.
--- NOTE | 2019-03-06 00:30 | NUR ---
ROUNDS PATIENT RESTING IN BED. NO DISTRESS NOTED. VITAL SIGNS STABLE.
[2019-03-06] MEDS: KCL 20 mEq in D5/0.45NS 1000mL 1,000 ML IV SCH ×2 (00:35→10:20)
[2019-03-06] MEDS: cloNIDine HCL 0.1 MG TABLET PO PRN ×2 (00:46→11:45)
--- NOTE | 2019-03-06 00:46 | NUR ---
BP CLONIDINE GIVEN FOR BP 184/115. NO C/O PAIN AT THIS TIME. CALL LIGHT WITH IN REACH.
[2019-03-06 02:15] VITALS: BP_SYST 159
[2019-03-06] MEDS: OXYCODONE/ACETAMINOPHEN 5-325 TABLET PO PRN ×4 (02:27→17:21)
--- NOTE | 2019-03-06 02:27 | NUR ---
PAIN MGT PATIENT MEDICATED WITH PERCOCET FOR C/O NECK PAIN. SAFETY PRECAUTIONS IN PLACED. VITAL SIGNS STABLE.
[2019-03-06] MEDS: IBUPROFEN 800 MG TABLET PO SCH ×3 (04:51→20:23)
--- NOTE | 2019-03-06 04:51 | NUR ---
PAIN MGT PATIENT MEDICATED WITH MOTRIN ORDERED FOR C/O BILATERAL SHOULDER ND NECK PAIN. GIVEN WITH FOOD.
--- NOTE | 2019-03-06 06:30 | NUR ---
CLOSING NOTES PATIENT RESTING IN BED. BREATHING UNLABORED ON ROOM AIR. IVF INFUSING WITH IV LINE INTACT. PATIENT NEEDS ATTENDED. CALL LIGHT WITH IN REACH. BED IN LOWEST LOCKED POSITION.
--- NOTE | 2019-03-06 07:40 | NUR ---
Initial notes- In bed, complain of neck and shoulder pain. will medicate. refused to be repositioned. Pt stated that he needs to be feed because he cant left his arm because its hurting him. no swelling noted on upper and lower extremities . IVF infusing well. Update plan of care. SR on the monitor.
[2019-03-06] MEDS: THIAMINE HCL 100 MG TABLET PO SCH (08:00)
[2019-03-06] MEDS: METOPROLOL SUCCINATE 50 MG TAB.SR.24H (TOPROL XL) PO SCH (08:01)
[2019-03-06] MEDS: APIXABAN 2.5 MG TABLET PO SCH ×2 (08:02→20:26)
[2019-03-06] MEDS: GABAPENTIN 300 MG CAPSULE PO SCH ×3 (08:02→20:25)
[2019-03-06] MEDS: SOTALOL HCL 80 MG TABLET PO SCH ×2 (08:02→20:25)
[2019-03-06 08:12] VITALS: BP_SYST 181
--- NOTE | 2019-03-06 08:30 | NUR ---
MD rounds Seen By Dr. Santamaria at bedside.
--- NOTE | 2019-03-06 09:00 | NUR ---
Notes- Pt refuses physical therapy and CT scan of the ankle. pt stated he is in pain and does not want to move.
--- NOTE | 2019-03-06 09:33 | NUR ---
Note- Spoke to Dr. Acosta. Patient stated that percocet is not working on him. Dr. Acosta stated that percocet is enough for him and he will not order anymore narcotics.
[2019-03-06] MEDS ORDERED: LOSARTAN POTASSIUM 50 MG TABLET (COZAAR) PO ONE (09:45)
[2019-03-06] MEDS: ACETAMINOPHEN 325 MG TABLET PO PRN (09:47)
--- NOTE | 2019-03-06 10:08 | NUR ---
Physical Therapy order has been received and the chart reviewed. Patient refused to participate because of being in severe pain in throughout his body. RN is aware.
[2019-03-06 11:00] VITALS: BP_SYST 182
--- NOTE | 2019-03-06 11:50 | NUR ---
Notes- Pt's complain of generalized pain. Blood pressure also is 182/93. Percocet and clonidine given at this time.
--- NOTE | 2019-03-06 14:59 | NUR ---
Resting at this time. Son at bedside. Enc to call for help as needed.
[2019-03-06 15:51] VITALS: BP_SYST 164
--- NOTE | 2019-03-06 16:30 | NUR ---
pt sleeping at this time. No acute distress
--- NOTE | 2019-03-06 17:15 | NUR ---
Pt just woke up and ask for his pain meds. Pt stated that nurses need to wake him up if its time of his pain meds. Informed patient that its a PRN medications and he needs to ask for it.
--- NOTE | 2019-03-06 17:25 | NUR ---
Wound Evaluation: Wound Consult ordered for Low Naun Score. Patient evaluated for a low Naun score of 14. Patient was awake, alert, oriented and received in a [place] Bed with an IsoFlex TEJA mattress. Patient needs assist to turn in bed secondary to pain. Recommend encourage and assist patient as needed with repositioning side to side with pillow wedge pelvic tilt every 2 hours with pillow support. Elevate, off-load and float bilateral heels with pillows. Offload pressure areas with pillows for pressure re-distribution. Perform skin care and monitor skin integrity Q shift. Use moisture barrier cream on moisture susceptible areas QID and PRN for soiling. Initiate low air-loss therapy. Skin assessment: 1. Left Plantar Foot at First Metatarsal Head: Chronic wound site (from going up and down a ladder that later became infected and developed Osteomyelitis, per patient report). Site has dark discoloration. No odor, no drainage. Site measures 1.0 cm x 2.0 cm. Recommend: Cover site with foam dressing for protection. Change dressing and assess site daily, and prn for dressing soiling or dislodgment. 2. Left Plantar Foot at Second Metatarsal Head: Chronic wound site (from going up and down a ladder that later became infected and developed Osteomyelitis, per patient report). Site has a callus with a rough, irregular surface. No odor, no drainage. Hannah-callus intact. Site measures 2.0 cm x 1.3 cm. Recommend: [place] site with Betadine. Allow to air dry. Cover site with foam dressing for protection. Change dressing and assess site daily, and prn for dressing soiling or dislodgment.
--- NOTE | 2019-03-06 17:48 | NUR ---
wound care nurse at bedside and doing eval on the left foot.
[2019-03-06] MEDS: MORPHINE SULFATE 30 MG TABLET.SA PO SCH (20:24)
[2019-03-06] MEDS: OXYCODONE/ACETAMINOPHEN *10*mg/325 mg TABLET PO PRN (20:24)
--- NOTE | 2019-03-06 20:25 | NUR ---
DR MARIAA FERNANDES here to see patient & @ the bedside , new orders obtained .
[2019-03-06 21:05] VITALS: BP_SYST 157
--- NOTE | 2019-03-06 21:15 | NUR ---
DR KATHIA FERNANDES for consult , new orders DR LEROY , patient updated & aware .
--- NOTE | 2019-03-06 22:15 | NUR ---
TURNING OFF LOADING WITH PILLOWS encouraged , patient does REFUSE @ TIMES call griffin with patient procedures explained comfort measures helpful & implemented .
[2019-03-07] VITALS: BP_SYST 181
--- NOTE | 2019-03-07 | NUR ---
PERCOCET 10/325 MG PO administer for pain & helpful /10 OFF loading with pillows implemented & encouraged .
[2019-03-07] MEDS: chlordiazePOXIDE HCL 25 MG CAPSULE PO PRN (00:08)
[2019-03-07] MEDS: cloNIDine HCL 0.1 MG TABLET PO PRN ×2 (00:09→08:47)
[2019-03-07] MEDS ORDERED: chlordiazePOXIDE HCL 25 MG CAPSULE ONE (00:21)
[2019-03-07] MEDS: OXYCODONE/ACETAMINOPHEN *10*mg/325 mg TABLET PO PRN ×3 (00:21→23:31)
--- NOTE | 2019-03-07 01:50 | NUR ---
LIBRIUM 25 MG PO administer for agitation / anxiety & helpful .
--- NOTE | 2019-03-07 02:01 | NUR ---
CLONIDINE 0.1 MG PO administer for elevated blood pressure & helpful .
[2019-03-07 02:03] VITALS: BP_SYST 151
--- NOTE | 2019-03-07 02:47 | NUR ---
Hourly Rounding patient Resting HOB elevated call griffin with patient RESPIRATIONS Regular also unlabored no acute distress noted / monitor .
--- NOTE | 2019-03-07 03:04 | NUR ---
CONSULTATION PAGED/CALLED Reason for Consultation: CHRONIC PAIN Person Who was Notified: CECI Consulting Physician: KAYLYN TALLEY Ordering Physician: DR. LEROY
[2019-03-07] MEDS: KCL 20 mEq in D5/0.45NS 1000mL 1,000 ML IV SCH ×3 (06:20→23:27)
[2019-03-07] MEDS: IBUPROFEN 800 MG TABLET PO SCH ×2 (06:21→23:32)
--- NOTE | 2019-03-07 07:30 | NUR ---
OPENING NOTES: RECEIVED PATIENT FROM FLOOR LAYER APPRENTICE NURSE. PATIENT IS ASLEEP IN BED. NO SIGNS OF DISTRESS OR SHORTNESS OF BREATH NOTED. PATIENT'S IV SITE IS PATENT WITH NO SIGNS OF INFILTRATION. PATIENT IS TOLERATING OXYGEN AT ROOM AIR. PATIENT IN STABLE CONDITION. SAFETY, FALL, AND ASPIRATION PRECAUTIONS ARE IN PLACE. BED LOCKED IN LOWEST POSITION WITH CALL LIGHT IN REACH. WILL CONTINUE TO MONITOR PATIENT FOR ANY CHANGES.
[2019-03-07 08:11] VITALS: BP_SYST 194
[2019-03-07] MEDS: SOTALOL HCL 80 MG TABLET PO SCH ×2 (08:44→23:26)
[2019-03-07] MEDS: METOPROLOL SUCCINATE 50 MG TAB.SR.24H (TOPROL XL) PO SCH (08:44)
[2019-03-07] MEDS: GABAPENTIN 300 MG CAPSULE PO SCH ×3 (08:44→23:26)
[2019-03-07] MEDS: LOSARTAN POTASSIUM 50 MG TABLET (COZAAR) PO SCH (08:45)
[2019-03-07] MEDS: THIAMINE HCL 100 MG TABLET PO SCH (08:45)
[2019-03-07] MEDS: APIXABAN 2.5 MG TABLET PO SCH ×2 (08:46→23:30)
[2019-03-07] MEDS: MORPHINE SULFATE 30 MG TABLET.SA PO SCH ×2 (08:47→23:26)
--- NOTE | 2019-03-07 09:50 | NUR ---
Physical Therapy evaluation was refused. Patient reports being in too much pain to participate. RN informed.
--- NOTE | 2019-03-07 10:10 | NUR ---
RN ROUNDS: PATIENT IS AWAKE AND ALERT x3 LAYING IN BED. PATIENT IS MOANING IN PAIN. BACK MASSAGE WAS GIVEN TO HELP ALLEVIATE PAIN. PATIENT IN STABLE CONDITION. WILL CONTINUE TO MONITOR PATIENT FOR ANY CHANGES.
--- NOTE | 2019-03-07 12:23 | NUR ---
RN ROUNDS: PATIENT IS ASLEEP IN BED. NO SIGNS OF DISTRESS OR SHORTNESS OF BREATH NOTED. PATIENT IS TOLERATING OXYGEN AT ROOM AIR. PATIENT IN STABLE CONDITION. WILL CONTINUE TO MONITOR PATIENT FOR ANY CHANGES.
[2019-03-07 13:42] VITALS: BP_SYST 163
[2019-03-07] MEDS ORDERED: ACETAMINOPHEN 325 MG TABLET PO PRN (13:45)
--- NOTE | 2019-03-07 13:56 | NUR ---
CONSULT ID DR. JANY BRYANT SPOKE TO KRISTA DIALED [phone] LEROY
--- NOTE | 2019-03-07 14:05 | NUR ---
RN ROUNDS: PATIENT GIVEN TYLENOL FOR HIS FEVER. PATIENT STATES HE IS STIFF. PROVIDED PATIENT WITH BACK MASSAGE AND DID PASSIVE RANGE OF MOTION EXERCISES ON ALL FOUR OF HIS EXTREMITIES. PATIENT STATES IT FELT BETTER. PATIENT IN STABLE CONDITION. WILL CONTINUE TO MONITOR PATIENT FOR ANY CHANGES. Addendum: 03/07/19 at 1704 by Josie Weaver RN 1405: ICE PACKS PUT UNDER HIS ARM PITS AND ON HIS FOREHEAD TO TRY AND DECREASE HIS FEVER. 1503: TYLENOL GIVEN FOR PATIENTS FEVER.
--- NOTE | 2019-03-07 14:18 | NUR ---
CONSULT PSYCH. DR. DONNA BRYANT SPOKE TO SUSANNE DIALED [phone] LEROY REASON FOR CONSULT: DEPRESSION FAXED FACE SHEET TO [phone]
[2019-03-07] MEDS: ACETAMINOPHEN 325 MG TABLET PO PRN (15:03)
--- NOTE | 2019-03-07 16:10 | NUR ---
RN ROUNDS: PATIENT IS ASLEEP LAYING DOWN IN BED. NO SIGNS OF DISTRESS OR SHORTNESS OF BREATH NOTED. PATIENT IN STABLE CONDITION. WILL CONTINUE TO MONITOR PATIENT FOR ANY CHANGES.
--- NOTE | 2019-03-07 17:03 | NUR ---
Nutrition F/U Admitting Diagnosis: Rapid Ventricular Response RD reviewed pt's current EMR including diet Hx, physician notes, nursing notes, pertinent labs/meds/procedures, care trends and care activity. PMH: HTN, cardiac arrhythmia, chronic alcoholism, chronic back pain, osteomyelitis of the left foot per physician notes. Since admission, pt found with a duodenal ulcer, HLD, hypothyroidism, CKD3, BPH, per physician notes. Objective Information: Nutrition Consult received for 14, severe pain chronic wounds L foot 03/06/19 180. Subjective Information: Pt was seen resting in bed during time of visit. UNDER SHERIFF reported pt was very agitated d/t pain and was requesting to eat. UNDER SHERIFF stated pt is unable to move right arm well, feeding assistance required; overall pt is eating ok. Average PO intake 67% x5 meals per EMR. Per record center specialist notes on 03/06/19: 1. Left Plantar Foot at First Metatarsal Head: Chronic wound site (from going up and down a ladder that later became infected and developed Osteomyelitis, per patient report). Site has dark discoloration. 2. Left Plantar Foot at Second Metatarsal Head: Chronic wound site (from going up and down a ladder that later became infected and developed Osteomyelitis, per patient report). Site has a callus with a rough, irregular surface. Current Diet Order/Nutrition Support Cardiac Lochol/lofat/2gNa x4 day UPDATED: Estimated Energy Expenditure (kcals/day) 6003-9794 kcal/day (MSJ CBW AF: 1.2-1.5 for obesity, wound healing) UPDATED: Estimated Protein Required (g/day) 98-123 gm/day (1.2-1.5 gm/kg ABW for wound healing) UPDATED: Estimated Fluid Required (l/day) 2.2-2.8 L/day (1 mL/kcal/kg CBW for optimal wound healing) Problem/Etiology/Signs/Symptoms 1.Inadequate protein energy intake related to poor appetite as evidenced by PO intake record. (*ongoing) Expected Outcomes/Goals - Monitor appetite and PO intakes w/ goal of pt meeting at least 75% of estimated nutritional needs, labs trending WNL, normal GI function, and skin integrity/wt maintenance Dietitian Recommendations 1.Recommend Cardiac (lochol/lofat/2gNa) diet with Ensure Enlive TID with meals (provides additional 1050 kcal/day and 60 gm of protein/day) 3. Encourage PO intake. 4. Continue providing assistance with meals. Follow Up Moderate Risk: F/U in 3-5 days Signed: 03/07/19 at 1704 by Kristina RAYA <Co-Signature Required> Co-Signed: 03/07/19 at [address]
--- NOTE | 2019-03-07 17:06 | NUR ---
Dietitian Recommendations 1.Recommend Cardiac (lochol/lofat/2gNa) diet with Ensure Enlive TID with meals (provides additional 1050 kcal/day and 60 gm of protein/day) 3. Encourage PO intake. 4. Continue providing assistance with meals. LP, RD Please refer to Nutrition F/U for details. Signed: 03/07/19 at 1706 by Kristina RAYA <Co-Signature Required> Co-Signed: 03/07/19 at [address]
[2019-03-07 17:25] VITALS: BP_SYST 158
--- NOTE | 2019-03-07 18:59 | NUR ---
CLOSING NOTES: PATIENT IS ASLEEP IN BED. NO SIGNS OF DISTRESS OR SHORTNESS OF BREATH NOTED. PATIENT'S IV SITE IS PATENT WITH NO SIGNS OF INFILTRATION. PATIENT IS TOLERATING OXYGEN AT ROOM AIR. PATIENT IN STABLE CONDITION. SAFETY, FALL, AND ASPIRATION PRECAUTIONS REMAINED IN PLACE THROUGHOUT THE SHIFT. BED LOCKED IN LOWEST POSITION WITH CALL LIGHT IN REACH. WILL ENDORSE PATIENT CARE TO ONCOMING BINDING PRINTER NURSE.
[2019-03-07 21:00] VITALS: BP_SYST 148
--- NOTE | 2019-03-07 22:45 | NUR ---
Patient REFUSE MOTRIN 800 MG PO tablet .
[2019-03-08 02:00] VITALS: BP_SYST 139
--- NOTE | 2019-03-08 02:15 | NUR ---
PERCOCET 10 / 325 MG PO administer for general pain 7/10 off loading with pillows also helpful .
[2019-03-08] MEDS: OXYCODONE/ACETAMINOPHEN *10*mg/325 mg TABLET PO PRN (03:22)
--- NOTE | 2019-03-08 03:43 | NUR ---
WOUND CARE IMPLEMENTED as ordered to left plantar foot site , area clean dry patient tolerated .
--- NOTE | 2019-03-08 03:47 | NUR ---
REFUSE patient REFUSE FLU VACCINE .
[2019-03-08] MEDS: IBUPROFEN 800 MG TABLET PO SCH ×2 (03:55→07:34)
--- NOTE | 2019-03-08 05:48 | NUR ---
PATIENT REFUSING IV FLUIDS .
[2019-03-08 06:27] LABS: CREATININE 0.85 mg/dL (0.55-1.30); POTASSIUM 4.5 mmol/L (3.5-5.1)
[2019-03-08 07:14] LABS: BASOPHILS # (AUTO) 0.1 K/uL (0.0-0.2); BASOPHILS % (AUTO) 0.3 % (0.0-2.0); EOSINOPHILS # (AUTO) 0.1 K/uL (0.0-0.4); EOSINOPHILS % (AUTO) 0.8 % (0.0-4.0); HEMATOCRIT 34.6 % (36-54); HEMOGLOBIN 11.2 g/dL (14.0-18.0); LYMPHOCYTES # (AUTO) 2.7 K/uL (1.0-5.5); LYMPHOCYTES % (AUTO) 14.9 % (20.5-51.5); MEAN CORPUSCULAR HEMOGLOBIN 27 pg (27-31); MEAN CORPUSCULAR HGB CONC 32 % (32-36); MEAN CORPUSCULAR VOLUME 82 fL (79.0-98.0); MONOCYTES # (AUTO) 1.6 K/uL (0.0-1.0); NEUTROPHILS # (AUTO) 13.4 K/uL (1.8-7.7); PLATELET COUNT (AUTO) 488 K/uL (130-430); RED CELL DISTRIBUTION WIDTH 15.7 % (9.0-15.0); WHITE BLOOD COUNT (AUTO) 17.9 K/uL (4.8-10.8)
--- NOTE | 2019-03-08 07:30 | NUR ---
OPENING NOTES: RECEIVED PATIENT FROM SECURITIES BROKER NURSE. PATIENT IS ASLEEP IN BED. NO SIGNS OF DISTRESS OR SHORTNESS OF BREATH NOTED. IV SITE IS PATENT WITH NO SIGNS OF INFILTRATION. PATIENT IS TOLERATING OXYGEN AT ROOM AIR. PATIENT IN STABLE CONDITION. SAFETY, FALL, AND ASPIRATION PRECAUTIONS ARE IN PLACE. BED LOCKED IN LOWEST POSITION WITH CALL LIGHT IN REACH. WILL CONTINUE TO MONITOR PATIENT FOR ANY CHANGES.
--- NOTE | 2019-03-08 07:45 | NUR ---
PERCOCET TABLET PO EFFECTIVE FOR PAIN MANAGEMENT Patient Resting this hour .
[2019-03-08 08:00] VITALS: BP_SYST 173
--- NOTE | 2019-03-08 09:00 | NUR ---
Physical Therapy evaluation was refused. Patient is still reporting pain limiting his ability to attempt participation in the evaluation.
[2019-03-08] MEDS: LOSARTAN POTASSIUM 50 MG TABLET (COZAAR) PO SCH (10:10)
[2019-03-08] MEDS: GABAPENTIN 300 MG CAPSULE PO SCH ×3 (10:10→21:15)
--- NOTE | 2019-03-08 10:10 | NUR ---
RN ROUNDS: PATIENT IS AWAKE AND ALERT x3 LAYING IN BED. PASSIVE RANGE OF MOTION EXERCISES WERE PERFORMED ON ALL EXTREMITIES. PATIENT TOLERATING OXYGEN AT ROOM AIR. NO SIGNS OF DISTRESS OR SHORTNESS OF BREATH NOTED. PATIENT IN STABLE CONDITION. WILL CONTINUE TO MONITOR PATIENT FOR ANY CHANGES.
[2019-03-08] MEDS: METOPROLOL SUCCINATE 50 MG TAB.SR.24H (TOPROL XL) PO SCH (10:11)
[2019-03-08] MEDS: MORPHINE SULFATE 30 MG TABLET.SA PO SCH ×2 (10:11→21:16)
[2019-03-08] MEDS: SOTALOL HCL 80 MG TABLET PO SCH ×2 (10:11→21:16)
[2019-03-08] MEDS: THIAMINE HCL 100 MG TABLET PO SCH (10:11)
[2019-03-08] MEDS: APIXABAN 2.5 MG TABLET PO SCH ×2 (10:13→21:17)
--- NOTE | 2019-03-08 12:15 | NUR ---
IV INFILTRATED: IV CATHETER REMOVED AND INTACT. NO ACTIVE BLEEDING NOTED. WILL CONTINUE TO MONITOR PATIENT.
[2019-03-08 12:19] VITALS: BP_SYST 138
--- NOTE | 2019-03-08 12:20 | NUR ---
RN ROUNDS: PATIENT IS AWAKE AND ALERT x3 LAYING DOWN IN BED. PATIENT IS TOLERATING OXYGEN AT ROOM AIR. NO SIGNS OF DISTRESS OR SHORTNESS OF BREATH NOTED. PATIENT IN STABLE CONDITION.
--- NOTE | 2019-03-08 13:20 | NUR ---
ORAL CARE: ORAL CARE PROVIDED TO PATIENT. PASSIVE RANGE OF MOTION EXERCISES PERFORMED ON ALL EXTREMITIES. FED PATIENT HIS LUNCH. PATIENT TOLERATED IT WELL. WILL CONTINUE TO MONITOR PATIENT FOR ANY CHANGES.
--- NOTE | 2019-03-08 13:50 | NUR ---
MD ROUNDS: DR. LEROY MAKING HIS ROUNDS. AWARE OF PATIENT'S CONDITION. NEW ORDERS GIVEN.
--- NOTE | 2019-03-08 14:20 | NUR ---
RN ROUNDS: PATIENT IS AWAKE AND ALERT x3. FAMILY AT BEDSIDE. PATIENT LEFT TO RADIOLOGY IN A WHEELCHAIR. NO SIGNS OF DISTRESS OR SHORTNESS OF BREATH NOTED. PATIENT IN STABLE CONDITION. WILL WAIT FOR PATIENT TO RETURN TO THE FLOOR.
--- NOTE | 2019-03-08 15:00 | NUR ---
PATIENT RETURNED: PATIENT RETURNED FROM RADIOLOGY. PATIENT TRANSFERRED BACK INTO BED FROM WHEELCHAIR. NO SIGNS OF DISTRESS OR SHORTNESS OF BREATH NOTED. PATIENT CONNECTED BACK TO BRAKE HOLDER. PATIENT IN STABLE CONDITION. WILL CONTINUE TO MONITOR PATIENT FOR ANY CHANGES.
--- NOTE | 2019-03-08 16:15 | NUR ---
RN ROUNDS: PATIENT IS AWAKE AND ALERT x3 LAYING DOWN IN BED. NO SIGNS OF DISTRESS OR SHORTNESS OF BREATH NOTED. PATIENT IN STABLE CONDITION. WILL CONTINUE TO MONITOR PATIENT FOR ANY CHANGES.
[2019-03-08 16:21] VITALS: BP_SYST 148
--- NOTE | 2019-03-08 18:37 | NUR ---
CLOSING NOTES: PATIENT IS ASLEEP IN BED. NO SIGNS OF DISTRESS OR SHORTNESS OF BREATH NOTED. NO IV SITE AVAILABLE. MD AWARE. PATIENT IS TOLERATING OXYGEN AT ROOM AIR. PATIENT IN STABLE CONDITION. SAFETY, FALL, AND ASPIRATION PRECAUTIONS REMAINED IN PLACE THROUGHOUT THE SHIFT. BED LOCKED IN LOWEST POSITION WITH CALL LIGHT IN REACH. WILL ENDORSE PATIENT CARE TO ONCOMING FINISH MACHINE TENDER NURSE.
[2019-03-08 20:00] VITALS: BP_SYST 150
[2019-03-08] MEDS: KCL 20 mEq in D5/0.45NS 1000mL 1,000 ML IV SCH (22:52)
--- NOTE | 2019-03-09 01:45 | NUR ---
PAGED I PAGED DR. LEROY CRITICAL LAB RESULTS
--- NOTE | 2019-03-09 02:36 | NUR ---
CONSULT: CONSULT CALLED FOR DR. MIGUEL LAST WITH CHERYL MA REASON FOR CONSULT: SHOULDERS AND BACK PAIN REQUESTING CONSULT: SIVAKUMARACOSTA DISULFURIZER TENDER'S PHONE NUMBER [phone]
[2019-03-09] MEDS: OXYCODONE/ACETAMINOPHEN *10*mg/325 mg TABLET PO PRN (04:21)
[2019-03-11 00:25] VITALS: BP_SYST 107
--- NOTE | 2019-03-11 07:44 | NUR ---
INITIAL NOTE PT RESTING IN BED, NO ACUTE DISTRESS NOTED, BREATHING EVEN AND UNLABORED. NO IV ACCESS, MD AWARE. CALL LIGHT WITHIN REACH, BED IN LOW AND LOCKED POSITION WITH BED ALARM ON.
[2019-03-11] MEDS: LOSARTAN POTASSIUM 50 MG TABLET (COZAAR) PO SCH (08:07)
[2019-03-11] MEDS: MORPHINE SULFATE 30 MG TABLET.SA PO SCH ×2 (08:09→21:39)
[2019-03-11] MEDS: GABAPENTIN 300 MG CAPSULE PO SCH ×3 (08:09→21:39)
[2019-03-11] MEDS: THIAMINE HCL 100 MG TABLET PO SCH (08:09)
[2019-03-11] MEDS: APIXABAN 2.5 MG TABLET PO SCH ×2 (08:09→21:42)
[2019-03-11] MEDS: METOPROLOL SUCCINATE 50 MG TAB.SR.24H (TOPROL XL) PO SCH (08:10)
[2019-03-11] MEDS: SOTALOL HCL 80 MG TABLET PO SCH ×2 (08:10→21:39)
[2019-03-11 12:00] VITALS: BP_SYST 105
[2019-03-11] MEDS: OXYCODONE/ACETAMINOPHEN *10*mg/325 mg TABLET PO PRN ×2 (12:14→16:46)
[2019-03-11] MEDS: KCL 20 mEq in D5/0.45NS 1000mL 1,000 ML IV SCH (12:15)
--- NOTE | 2019-03-11 16:44 | NUR ---
DR. GERDA FERNANDES AT BEDSIDE EXAMINING PT.
[2019-03-11 16:49] VITALS: BP_SYST 115
--- NOTE | 2019-03-11 19:30 | NUR ---
Opening notes Received report. Patient is sleeping. No signs of distress noted. Breathing even and unlabored. No IV access. MD is aware. Call light with the patient. Safety precautions in place.
[2019-03-11 20:00] VITALS: BP_SYST 147
--- NOTE | 2019-03-11 21:40 | NUR ---
Medications scheduled medications given. Educated the action and side effects of medications. Patient verbalized understanding and tolerated well. Fed patient dinner. Patient ate 20% of dinner. No other needs at this time. Call light with the patient. Safety precautions in place.
[2019-03-11] MEDS: ceFAZolin SODIUM 1 GM in D5W 50 ML IV SCH (21:43)
--- NOTE | 2019-03-11 23:45 | NUR ---
Sleeping Patient is sleeping. No signs of distress noted. Breathing even and unlabored. VSS. No needs. Call light with the patient. Safety precautions in place.
[2019-03-12] MEDS: OXYCODONE/ACETAMINOPHEN *10*mg/325 mg TABLET PO PRN ×2 (01:06→14:00)
--- NOTE | 2019-03-12 01:06 | NUR ---
Pain/Linens changed Patient called on phone complaining RN is not giving pain medications. Patient was given scheduled medications and patient has been sleeping during rounds. Informed patient that Percocet is given on an as needed basis and patient needs to ask for them. PRN pain medications given. Patient also had linen changed. Patient tolerated well. Call light with the patient, safety precautions in place.
[2019-03-12 02:09] VITALS: BP_SYST 139
--- NOTE | 2019-03-12 03:00 | NUR ---
Sleeping Patient is sleeping. No signs of distress noted. Breathing even and unlabored. Call light with the patient. Safety precautions in place.
--- NOTE | 2019-03-12 04:00 | NUR ---
Resting Patient resting in bed. Patient yelling that he is in pain. Informed patient pain medication is not due at this time. Patient called son to inform son of his pain. Call light with the patient. Safety precautions in place. Addendum: 03/12/19 at 0425 by Ashlyn Shepherd RN Patient was repositioned for comfort. Patient was yelling.
[2019-03-12] MEDS: ceFAZolin SODIUM 1 GM in D5W 50 ML IV SCH ×3 (06:00→22:00)
[2019-03-12] MEDS: KCL 20 mEq in D5/0.45NS 1000mL 1,000 ML IV SCH (06:07)
--- NOTE | 2019-03-12 06:50 | NUR ---
Closing notes Patient is sleeping. No signs of distress noted. Breathing even and unlabored. No IV site. All needs met throughout the shift. Call light with the patient. Safety precautions in place. Will endorse care to day shift RN.
--- NOTE | 2019-03-12 07:30 | NUR ---
INITIAL NOTE PT RESTING IN BED, NO ACUTE DISTRESS NOTED, PT ON ROOM AIR, BREATHING EVEN AND UNLABORED. CALL LIGHT WITHIN REACH, BED IN LOW AND LOCKED POSITION WITH BED ALARM ON.
[2019-03-12 08:00] VITALS: BP_SYST 133
[2019-03-12] MEDS: THIAMINE HCL 100 MG TABLET PO SCH (08:11)
[2019-03-12] MEDS: MORPHINE SULFATE 30 MG TABLET.SA PO SCH ×2 (08:12→22:38)
[2019-03-12] MEDS: APIXABAN 2.5 MG TABLET PO SCH ×2 (08:12→22:38)
[2019-03-12] MEDS: SOTALOL HCL 80 MG TABLET PO SCH ×2 (08:13→21:00)
[2019-03-12] MEDS: GABAPENTIN 300 MG CAPSULE PO SCH ×3 (08:13→22:38)
[2019-03-12] MEDS: LOSARTAN POTASSIUM 50 MG TABLET (COZAAR) PO SCH (08:13)
[2019-03-12] MEDS: METOPROLOL SUCCINATE 50 MG TAB.SR.24H (TOPROL XL) PO SCH (08:14)
[2019-03-12 08:37] LABS: ALBUMIN 2.2 g/dL (3.4-4.8); CALCIUM 9.9 mg/dL (8.4-11.0); CREATININE 1.12 mg/dL (0.55-1.30); POTASSIUM 5.6 mmol/L (3.5-5.1); TOTAL BILIRUBIN 0.7 mg/dL (0.0-1.0)
[2019-03-12 08:51] LABS: BASOPHILS # (AUTO) 0.2 K/uL (0.0-0.2); EOSINOPHILS # (AUTO) 0.1 K/uL (0.0-0.4); EOSINOPHILS % (AUTO) 0.8 % (0.0-4.0); HEMOGLOBIN 11.2 g/dL (14.0-18.0); LYMPHOCYTES # (AUTO) 2.4 K/uL (1.0-5.5); LYMPHOCYTES % (AUTO) 13.4 % (20.5-51.5); MEAN CORPUSCULAR HEMOGLOBIN 27 pg (27-31); MEAN CORPUSCULAR HGB CONC 32 % (32-36); MEAN CORPUSCULAR VOLUME 83 fL (79.0-98.0); MONOCYTES # (AUTO) 1.4 K/uL (0.0-1.0); MONOCYTES % (AUTO) 8.2 % (1.7-9.3); NEUTROPHILS # (AUTO) 13.6 K/uL (1.8-7.7); PLATELET COUNT (AUTO) 737 K/uL (130-430); RED BLOOD CELL COUNT(AUTO) 4.21 MIL/uL (4.2-6.2); RED CELL DISTRIBUTION WIDTH 16.1 % (9.0-15.0); WHITE BLOOD COUNT (AUTO) 17.8 K/uL (4.8-10.8)
--- NOTE | 2019-03-12 09:30 | NUR ---
RN ROUNDS PT RESTING IN BED, NO ACUTE DISTRESS NOTED, BREATHING EVEN AND UNLABORED.
[2019-03-12 11:01] VITALS: BP_SYST 132
--- NOTE | 2019-03-12 11:30 | NUR ---
RN ROUNDS PT RESTING IN BED, BREATHING EVEN AND UNLABORED, NO ACUTE DISTRESS NOTED.
--- NOTE | 2019-03-12 13:30 | NUR ---
RN ROUNDS REPOSITIONED PT FOR COMFORT. PT YELPED OUT IN PAIN. OFFERED WARM TOWEL AND PILLOW UNDERARMS, PT AGREEABLE.
--- NOTE | 2019-03-12 13:50 | NUR ---
REFUSED WOUND CARE PT COMPLAINING OF PAIN, REFUSING WOUND CARE, WILL ADMINISTER PRN PAIN MEDICATIONS. WILL REATTEMPT.
--- NOTE | 2019-03-12 14:01 | NUR ---
REFUSING IV ACCESS EDUCATED PT ON USES AND PURPOSE OF IV ACCES FOR ANTIBIOTICS. PT VERBALIZED UNDERSTANDING. PT REFUSING IV ACCESS AT THIS TIME. ANTIBIOTICS NOT GIVEN. Addendum: 03/12/19 at 1933 by Vidya Castellano RN PAIN MEDICATIONS ADMINISTERED, PRN PERCOCET INDICATED AND ADMINISTERED.
[2019-03-12 14:52] LABS: NEUTROPHILS % (AUTO) 76.6 % (40.0-70.0)
[2019-03-12 15:31] VITALS: BP_SYST 105
--- NOTE | 2019-03-12 16:00 | NUR ---
RN ROUNDS PT REQUESTING FOR BED BATH AND LINEN CHANGE. SON AT BEDSIDE. BED BATH GIVEN, LINENS CHANGED. SON ASSISTED WITH HELPING UP PT TO BEDSIDE CHAIR. PT DID NOT YELP OUT IN PAIN. PT TOLERATED WELL.
--- NOTE | 2019-03-12 19:00 | NUR ---
RN ROUNDS SON AT BEDSIDE, ASSISTED WITH PT TO BED. PT TOLERATED WELL. PT DID NOT YELP OUT IN PAIN. TOLERATED WELL.
--- NOTE | 2019-03-12 19:10 | NUR ---
NURSES NOTE: 1910- received pt. awake on bed; alert and oriented x 4; on cardiac diet as ordered; safety precautions observed; siderails x 2 are up; bed alarm is on; call light is within reach;
--- NOTE | 2019-03-12 19:30 | NUR ---
CLOSING NOTE PT RESTING IN BED, NO ACUTE DISTRESS NOTED, BREATHING EVEN AND UNLABORED. ALL NEEDS MET THROUGH OUT SHIFT. CALL LIGHT WITHIN REACH, BED IN LOW AND LOCKED POSITION WITH BED ALARM ON. PT CARE ENDORSED TO TRANSPORT MANAGER RN.
[2019-03-12 20:00] VITALS: BP_SYST 123
--- NOTE | 2019-03-12 22:00 | NUR ---
NURSES NOTE: 2200- pt. still refuses IV re- insertion
--- NOTE | 2019-03-13 | NUR ---
NURSES NOTE: 0000- vital signs stable; no sob noted;
[2019-03-13 01:02] VITALS: BP_SYST 120
[2019-03-13 03:00] VITALS: BP_SYST 123
[2019-03-13] MEDS: OXYCODONE/ACETAMINOPHEN *10*mg/325 mg TABLET PO PRN ×3 (03:07→16:34)
--- NOTE | 2019-03-13 06:07 | NUR ---
NURSES NOTE: 0607- paged dr. teran re: potassium level-5.6; awaiting for md callback
--- NOTE | 2019-03-13 07:10 | NUR ---
NURSES NOTE: 0710- talked to dr. teran over the phone re: potassium level- 5.6; no order was relayed
[2019-03-13 07:46] LABS: BASOPHILS # (AUTO) 0.2 K/uL (0.0-0.2); BASOPHILS % (AUTO) 1.1 % (0.0-2.0); EOSINOPHILS # (AUTO) 0.1 K/uL (0.0-0.4); EOSINOPHILS % (AUTO) 0.7 % (0.0-4.0); HEMATOCRIT 32.9 % (36-54); HEMOGLOBIN 10.7 g/dL (14.0-18.0); LYMPHOCYTES # (AUTO) 2.2 K/uL (1.0-5.5); LYMPHOCYTES % (AUTO) 13.4 % (20.5-51.5); MEAN CORPUSCULAR HEMOGLOBIN 27 pg (27-31); MEAN CORPUSCULAR HGB CONC 32 % (32-36); MEAN CORPUSCULAR VOLUME 83 fL (79.0-98.0); MONOCYTES # (AUTO) 1.6 K/uL (0.0-1.0); MONOCYTES % (AUTO) 9.7 % (1.7-9.3); NEUTROPHILS # (AUTO) 12.1 K/uL (1.8-7.7); NEUTROPHILS % (AUTO) 75.1 % (40.0-70.0); RED BLOOD CELL COUNT(AUTO) 3.98 MIL/uL (4.2-6.2); RED CELL DISTRIBUTION WIDTH 16.1 % (9.0-15.0); WHITE BLOOD COUNT (AUTO) 16.1 K/uL (4.8-10.8)
[2019-03-13 07:50] LABS: PLATELET COUNT (AUTO) 793 K/uL (130-430)
--- NOTE | 2019-03-13 07:50 | NUR ---
INITIAL ROUNDS Received pt AAOx4, no s/s resp distress, c/o pain his shoulders-will check on pain medication. Pt stated he can't move his arms today, noted when turning pt, arms are not floppy. Plan of care for the day reviewed with pt-pt verbalized his understanding. No IV site noted, pt stated he does not want one at this time. Noted dressing to the bottom of left foot. Pain management, skin and safety discussed-teach back done. Call light within reach.
[2019-03-13] MEDS: ceFAZolin SODIUM 1 GM in D5W 50 ML IV SCH ×4 (08:16→22:41)
[2019-03-13 08:32] LABS: CALCIUM 10.1 mg/dL (8.4-11.0); CREATININE 1.04 mg/dL (0.55-1.30); POTASSIUM 5.3 mmol/L (3.5-5.1); TOTAL BILIRUBIN 0.8 mg/dL (0.0-1.0)
[2019-03-13 08:38] LABS: ALBUMIN 2.2 g/dL (3.4-4.8)
[2019-03-13 08:39] VITALS: BP_SYST 126
[2019-03-13 08:55] LABS: ERYTHROCYTE SEDIMENTATION RATE 101 MM/HR (0-15)
[2019-03-13] MEDS: MORPHINE SULFATE 30 MG TABLET.SA PO SCH ×2 (09:29→22:40)
[2019-03-13] MEDS: THIAMINE HCL 100 MG TABLET PO SCH (09:32)
[2019-03-13] MEDS: METOPROLOL SUCCINATE 50 MG TAB.SR.24H (TOPROL XL) PO SCH (09:32)
[2019-03-13] MEDS: GABAPENTIN 300 MG CAPSULE PO SCH ×3 (09:32→22:40)
[2019-03-13] MEDS: SOTALOL HCL 80 MG TABLET PO SCH ×2 (09:33→22:42)
[2019-03-13] MEDS: APIXABAN 2.5 MG TABLET PO SCH ×2 (09:34→22:43)
--- NOTE | 2019-03-13 11:15 | NUR ---
PAIN/REFUSED PHYSICAL THERAPY Pt c/o pain to shoulders-pt given pain medication as ordered. Pt's son here, pt still refusing to work with physical therapy due to pain. Pt then requested a bedside commode-informed pt that it would not be safe for the him if he cannot moves his arms, bed kwok offered, pt declined bed kwok. Call light within reach.
[2019-03-13 11:27] VITALS: BP_SYST 108
--- NOTE | 2019-03-13 14:21 | NUR ---
Discharge Planning: DCP faxed pt referral to [facility] ([phone] p [phone]) DCP to follow up. Addendum: 03/13/19 at 1730 by Janeth Bloand DP [facility] ([phone] p [phone]) Yaz came out to evaluate wants one more PT eval and if infectious doctor is running more test.
--- NOTE | 2019-03-13 14:38 | NUR ---
DR. KENDALL CALLED Dr. Acosta here and requested that Dr. Kendall be called again regarding consult for pt since Dr. Kendall has not been here to see the pt yet. paged, spoke with Cindy from exchange.
--- NOTE | 2019-03-13 14:45 | NUR ---
DC Planning: s/w pt at bedside and his son/Al via phone, discussing dcp to [facility] or snf of choice if not meet criteria for acute rehab ([facility]). Both agreed with the POC for IV ABX and PT and pain managements. DR Acosta made aware that if going to snf, pt wants snf in [place] or [facility]. The discharge is pending new MRI shoulder from dr. Acosta today. Addendum: 03/13/19 at 1523 by Nitish Payne RN contact acid plant operator helper #1 son/Al Shcultz # [phone], #2 friend/ Leon Correa # [phone].
--- NOTE | 2019-03-13 15:29 | NUR ---
CONSULTATION PAGED REASON FOR CONSULTATION:UNABLE TO MOVE RUE WAS CONSULT CALLED?Y PERSON WHO WAS NOTIFIED:ANIBAL CONSULTING PHYSICIAN:CARRIE VENTURA ( SECOND RIDE FARE COLLECTOR) ASSISTANT ATHLETIC TRAINER SPECIALTY:NEURO ASSISTANT ATHLETIC TRAINER PHONE NUMBER:[phone] REQUESTING PHYSICIAN:HUI SCHROEDER
--- NOTE | 2019-03-13 15:30 | NUR ---
DC Planning: s/w with pt and son Al via phone for dcp to snf if not accepting at [facility]. Both agreed with POC. Patient requested snf in [facility] or [facility]. -- Dr. Acosta made aware. The md ordered MRI /shoulders and dr. Kendall recall for consultation. -- Roro director made aware.
[2019-03-13 16:05] VITALS: BP_SYST 126
--- NOTE | 2019-03-13 16:32 | NUR ---
DC PLANNING PER MARYAN AUSTIN WOULD LIKE MORE PHYSICAL THERAPY NOTES TO [facility] IF PATIENT CAN GO ALSO STATES NEEDS DC PLAN FOR PATEINT AFTER ACUTE REHAB. PER SECURITY OPERATIONS CENTER OPERATOR DR LEROY REQUESTING SHOULDER MRI. DIRECTOR OF REQUESTING DOCTOR DC TO [facility] WITH OUTPT MRI. Addendum: 03/13/19 at 1647 by Roro Macias RN PER DR LEROY PATIENT IN SEVERE PAIN TO BILATER UPPER EXTREMETIES. DIRECTOR NOTES CONSULT FOR DR RIVERA ON 03/08/19 (NOT SEEN), CONSULT TODAY 03/13/19 FOR ANN-MARIE BURRELL, ALSO ORDERED MRI BILATERAL SHOULDERS. ASKED DR LEROY FOR OUTPT MRI ORDER. NOTIFIED RESEARCH AND DEVELOPMENT CHEMIST OF MRI REQUEST.
--- NOTE | 2019-03-13 19:05 | NUR ---
CLOSING NOTE Pt resting quietly in bed with no s/s resp distress, no c/o pain or discomfort. Pt seen by Dr. Carin Wynn, new orders for labs and Prednisone noted. Pt declined wound care earlier. BLE off-loaded. All skin and safety precautions remain in place. Needs met, call light within reach.
--- NOTE | 2019-03-13 19:35 | NUR ---
ROUNDS PATIENT RESTING COMFORTABLY IN BED, VITALS STABLE, NO PAIN AT THIS TIME. ASSESSMENT DONE AND DOCUEMNTED. NEEDS ATTENDED TO. CALL LIGHT PLACED WITHIN REACH.
--- NOTE | 2019-03-13 21:14 | NUR ---
MEDICATION DUE MEDICATIONS GIVEN SCHEDULED, TOLERATED WELL. WILL CONTINUE TO MONITOR.
[2019-03-13] MEDS: PREDNISONE 20 MG TABLET PO SCH (22:40)
--- NOTE | 2019-03-14 00:14 | NUR ---
PATIENT RESTING: Patient resting quietly. No acute distress noted. Vital signs within normal range.
[2019-03-14 00:15] VITALS: BP_SYST 119
--- NOTE | 2019-03-14 02:16 | NUR ---
ROUNDS PATIENT ASLEEP, VITALS STABLE, WILL CONTINUE TO MONITOR.
[2019-03-14] MEDS: ceFAZolin SODIUM 1 GM in D5W 50 ML IV SCH ×2 (06:00→14:00)
--- NOTE | 2019-03-14 06:50 | NUR ---
CLOSING NOTES PATIENT AWAKE, VITALS STABLE, NO COMPLAINTS AT THIS TIME. ALL NEEDS ATTENDED TO. SAFETY MEASURES MAINTAINED. CALL LIGHT PLACED WITHIN REACH.
[2019-03-14 07:22] LABS: BASOPHILS % (AUTO) 0.3 % (0.0-2.0); EOSINOPHILS % (AUTO) 0.1 % (0.0-4.0); HEMOGLOBIN 11.2 g/dL (14.0-18.0); LYMPHOCYTES # (AUTO) 0.7 K/uL (1.0-5.5); LYMPHOCYTES % (AUTO) 5.5 % (20.5-51.5); MEAN CORPUSCULAR HEMOGLOBIN 27 pg (27-31); MEAN CORPUSCULAR HGB CONC 32 % (32-36); MEAN CORPUSCULAR VOLUME 83 fL (79.0-98.0); MONOCYTES # (AUTO) 0.2 K/uL (0.0-1.0); MONOCYTES % (AUTO) 1.5 % (1.7-9.3); NEUTROPHILS # (AUTO) 11.1 K/uL (1.8-7.7); NEUTROPHILS % (AUTO) 92.6 % (40.0-70.0); RED BLOOD CELL COUNT(AUTO) 4.23 MIL/uL (4.2-6.2); RED CELL DISTRIBUTION WIDTH 15.7 % (9.0-15.0)
--- NOTE | 2019-03-14 07:30 | NUR ---
REPORT TO 7PM RN. PT ASLEEP AT INTERVALS. S/P LARGE BM AFTER KAYEXALATE PO INTAKE. PATIENT IN NAD.
--- NOTE | 2019-03-14 07:30 | NUR ---
RECEIVED REPORT ON PATIENT FROM 7 PM RN. PATIENT [id number] SKIN W/D TO TOUCH , IN BED, CC PER REPORT IS PAIN, AT PRESENT VOICES NO C/O PAIN OR DISCOMFORT AT PRESENT, WILL CONT TO MONITOR.
[2019-03-14 07:40] LABS: POTASSIUM 6.7 mmol/L (3.5-5.1)
[2019-03-14 07:41] LABS: CALCIUM 10.3 mg/dL (8.4-11.0); CREATININE 0.97 mg/dL (0.55-1.30)
[2019-03-14 07:59] VITALS: BP_SYST 129
[2019-03-14 08:40] LABS: PLATELET COUNT (AUTO) 832 K/uL (130-430)
--- NOTE | 2019-03-14 09:30 | NUR ---
AM CARE DONE, MED PASS COMPLETED, PT OOB TO W/C, LEFT THE FLOOR TO MRI VIA W/C, TOLERATED OOB TO CHAIR WELL.
[2019-03-14] MEDS ORDERED: SODIUM POLYSTYRENE SULFONATE 15 GM/60 ML UDBTL PO ONE ×2 (10:00→10:15)
[2019-03-14] MEDS: GABAPENTIN 300 MG CAPSULE PO SCH ×3 (10:09→22:11)
[2019-03-14] MEDS: THIAMINE HCL 100 MG TABLET PO SCH (10:11)
[2019-03-14] MEDS: SOTALOL HCL 80 MG TABLET PO SCH ×2 (10:13→22:08)
[2019-03-14] MEDS: MORPHINE SULFATE 30 MG TABLET.SA PO SCH ×2 (10:13→22:10)
[2019-03-14] MEDS: METOPROLOL SUCCINATE 50 MG TAB.SR.24H (TOPROL XL) PO SCH (10:14)
[2019-03-14] MEDS: APIXABAN 2.5 MG TABLET PO SCH ×2 (10:16→22:13)
--- NOTE | 2019-03-14 10:30 | NUR ---
CRITICAL LAB CALLED, FOR POTASSIUM 6.7, DR SANTAMARIA CALLED AND MADE AWARE, ORDERS GIVEN.
[2019-03-14 10:52] LABS: CALCIUM 10.2 mg/dL (8.4-11.0); CREATININE 0.92 mg/dL (0.55-1.30)
--- NOTE | 2019-03-14 10:54 | NUR ---
Discharge Planning: DCP faxed pt referral to [facility] (f [phone] p [phone]) DCP to follow up. Addendum: 03/14/19 at 1601 by Janeth ALMANZA [facility] (f [phone] p [phone]), [facility] ([phone]) Will Call patient packet taken to nurse station
[2019-03-14 10:56] LABS: POTASSIUM 5.9 mmol/L (3.5-5.1)
--- NOTE | 2019-03-14 11:00 | NUR ---
PT BACK FROM MRI, ABLE TO TOLERATE ONE PART OF THE EXAM, FROM W/C TO BRP, HAD A LARGE BM, KAYEXALATE GIVEN PER ORDERS. AT PRESENT OOB TO CHAIR. BSC IN ROOM.WILL CONT TO MONITOR.
--- NOTE | 2019-03-14 11:30 | NUR ---
[facility] CM AND JOSE MIGUEL MAHER CM AT BEDSIDE DISCUSSING PLACEMENT OPTIONS WITH PATIENT.
--- NOTE | 2019-03-14 13:30 | NUR ---
S/P KAYEXALATE, PT W/ NO BM YET. BSC AT BEDSIDE.
--- NOTE | 2019-03-14 14:00 | NUR ---
PT OOB SINCE 1130 AM RETURNED TO BED AT PT REQUEST AT 2 PM
[2019-03-14 15:33] VITALS: BP_SYST 133
--- NOTE | 2019-03-14 16:00 | NUR ---
DC Planning: Per Susannah/[facility]uss[facility], the patient is accepted but the discharge is pending MRI of shoulders. The patient could not tolerated a back to back MRI or cervical spine and shoulders at the same time. The latter MRI is to be done tomorrow.
[2019-03-14] MEDS: PREDNISONE 20 MG TABLET PO SCH (17:23)
--- NOTE | 2019-03-14 18:00 | NUR ---
PATIENT HAD A LARGE BM S/P KAYEXALATE FOR POTASSIUM GREATER THAN 6.0 TODAY
[2019-03-14] MEDS: IBUPROFEN 800 MG TABLET PO SCH (22:10)
[2019-03-14 23:50] VITALS: BP_SYST 159
--- NOTE | 2019-03-15 02:01 | NUR ---
OPENING NOTE RECEIVED CARE OF PT. PT IS RESTING IN BED, NO S/S OF ACUTE DISTRESS, BREATHING IS EVEN AND UNLABORED. PT APPEARS COMFORTABLE AT THIS TIME. SAFETY PRECAUTIONS ARE IN PLACE: BED IS LOCKED IN LOWEST POSITION, SIDE RAILS UP X2, CALL LIGHT WITH PT, PERSONAL ITEMS WITHIN REACH. WILL MONITOR.
--- NOTE | 2019-03-15 04:08 | NUR ---
RN ROUNDS: PT RESTING IN BED, NO S/S OF ACUTE DISTRESS, BREATHING IS EVEN AND UNLABORED TO ROOM AIR, SKIN WARM AND DRY TO TOUCH. SAFETY PRECAUTIONS MAINTAINED. WILL MONITOR.
[2019-03-15] MEDS: OXYCODONE/ACETAMINOPHEN *10*mg/325 mg TABLET PO PRN ×3 (04:31→18:31)
--- NOTE | 2019-03-15 04:31 | NUR ---
PAIN/PERCOCET PT REPORTING SEVERE NECK AND SHOULDER PAIN. PT GIVEN PERCOCET 10-325 MG PO PRN ORDERED. MEDICATION AND POTENTIAL SIDE EFFECTS DISCUSSED, PT VERBALIZED UNDERSTANDING. PT REPOSITIONED FOR COMFORT. PT ASKED IF A NEW IV COULD BE PLACED SO HE CAN RECEIVE ANTIBIOTICS THIS MORNING. PT REFUSED DESPITE EDUCATION. PT DENIES FURTHER NEEDS AT THIS TIME. SAFETY PRECAUTIONS MAINTAINED. WILL MONITOR.
[2019-03-15] MEDS: ceFAZolin SODIUM 1 GM in D5W 50 ML IV SCH ×3 (05:11→21:40)
--- NOTE | 2019-03-15 07:23 | NUR ---
CLOSING NOTE PT RESTING IN BED, NO ACUTE DISTRESS. REPORT GIVEN TO MAJO ACOSTA FOR CONTINUITY OF CARE.
[2019-03-15 07:39] LABS: ALBUMIN 2.4 g/dL (3.4-4.8); CREATININE 1.04 mg/dL (0.55-1.30); POTASSIUM 5.1 mmol/L (3.5-5.1); TOTAL BILIRUBIN 0.5 mg/dL (0.0-1.0)
[2019-03-15 07:46] VITALS: BP_SYST 129
[2019-03-15] MEDS: THIAMINE HCL 100 MG TABLET PO SCH (08:43)
[2019-03-15] MEDS: METOPROLOL SUCCINATE 50 MG TAB.SR.24H (TOPROL XL) PO SCH (08:44)
[2019-03-15] MEDS: SOTALOL HCL 80 MG TABLET PO SCH ×2 (08:45→20:34)
[2019-03-15] MEDS: GABAPENTIN 300 MG CAPSULE PO SCH ×3 (08:45→20:35)
[2019-03-15] MEDS: APIXABAN 2.5 MG TABLET PO SCH ×2 (08:46→20:36)
[2019-03-15] MEDS: MORPHINE SULFATE 30 MG TABLET.SA PO SCH ×2 (08:46→20:35)
--- NOTE | 2019-03-15 08:55 | NUR ---
PT OFFERED AND GIVEN AM MEDS, PATIENT REFUSED TO HAVE IV ACCESS STARTED.
--- NOTE | 2019-03-15 11:00 | NUR ---
PT GIVEN MEDICAL INFORMATION RELEASE FORM AND SUPPLIES FOR ORAL CARE. FAMILY AT BEDSIDE.
--- NOTE | 2019-03-15 13:20 | NUR ---
DC Planning: Per Monisha/Huss[facility]: given bed assignment # 224C, RN to report # [phone]. DR Acosta made aware. CM requested his reeval and discharge order. Addendum: 03/15/19 at 1520 by Nitish Payne RN Late entry: Reported MRI results to dr. Acosta, the md ordered to call dr Kendall to give the pt injection for shoulder pain before he discharges the pt to [facility]. Kristine US is to call dr. Kendall requesting to treat the pt red and RN Pedro Luis made aware.
[2019-03-15] MEDS: IBUPROFEN 800 MG TABLET PO SCH (13:33)
[2019-03-15 15:31] VITALS: BP_SYST 116
--- NOTE | 2019-03-15 17:02 | NUR ---
PT CAME BACK FROM CT. PT TOLERATED WELL.
--- NOTE | 2019-03-15 17:02 | NUR ---
RE PAGED DR RIVERA RE REQUEST OF DR LEROY FOR JOINT PAIN INJECTION.
--- NOTE | 2019-03-15 17:40 | NUR ---
DR VERA CALLED BACK AND MADE AWARE THAT DR LEROY WANTED DR RIVERA FOR CORTISONE INJECTION. SAID DR RIVERA WILL BE BACK TOMORROW AND JUST ORDERED TO CALL DR RIVERA OFFICE IN THE MORNING.
[2019-03-15] MEDS: PREDNISONE 20 MG TABLET PO SCH (18:26)
--- NOTE | 2019-03-15 18:53 | NUR ---
CLOSING NOTES, PT HAS BEEN STABLE THE WHOLE SHIFT, GIVEN PAIN MEDICATION FOR PAIN, PT HAD MRI OF SHOULDER AND CT OF SPINE, DR LEROY SEEN PT, MD MADE AWARE THAT I SPOKE WITH DR VERA WHO IS COVERING FOR DR RIVERA, AND TOLD HIM THAT DR VERA WANTED US TO CALL DR RIVERA IN AM. WILL ENDORSE TO NIGHT NURSE.
--- NOTE | 2019-03-15 19:30 | NUR ---
Pt is awake and resting quietly in bed. No c/o pain or discomfort. Fall and safety precautions are in place. Call light is with pt and bed alarm is on. bed is in the lowest and locked positions.
--- NOTE | 2019-03-15 19:52 | NUR ---
Result of CT C Spine was read to Dr. Wynn who stated he will see pt tomorrow.
[2019-03-15 20:00] VITALS: BP_SYST 114
--- NOTE | 2019-03-15 21:45 | NUR ---
Pt is still declining IV restart. No acute distress noted at this time. Call light is with pt and bed alarm is on.
[2019-03-15 23:36] VITALS: BP_SYST 140
--- NOTE | 2019-03-16 | NUR ---
Pt is resting without any distress noted. Call light is with pt and bed alarm is on.
--- NOTE | 2019-03-16 02:00 | NUR ---
Pt is sleeping comfortably in bed. Fall and safety precautions are in place.
--- NOTE | 2019-03-16 04:00 | NUR ---
Pt is sleeping without any distress noted. Call light is with pt and bed alarm is on.
[2019-03-16] MEDS: ceFAZolin SODIUM 1 GM in D5W 50 ML IV SCH ×3 (05:30→21:20)
--- NOTE | 2019-03-16 06:30 | NUR ---
Pt is awake and resting quietly in bed. All pt's needs were attended to. Pt is still refusing IV restart. Fall and safety precautions are in place. Will endorse to dy shift nurse.
--- NOTE | 2019-03-16 07:15 | NUR ---
RN OPENING NOTE REPORT WAS ENDORSED BY NIGHT NURSE PATIENT IS AWAKE AND ALERT, EDUCTED CUSTOMER PROFESSIONAL LIGHT FOR ASSISTANCE. CALL LIGHT IS WITH PATIENT. PATIENT REQUESTING A MENU FOR MEALS KITCHEN MADE AWARE. NO OTHER NEEDS AT THIS TIME.
[2019-03-16 07:52] VITALS: BP_SYST 153
[2019-03-16] MEDS: GABAPENTIN 300 MG CAPSULE PO SCH ×3 (08:00→21:18)
[2019-03-16] MEDS: METOPROLOL SUCCINATE 50 MG TAB.SR.24H (TOPROL XL) PO SCH (08:01)
[2019-03-16] MEDS: SOTALOL HCL 80 MG TABLET PO SCH ×2 (08:02→21:18)
[2019-03-16] MEDS: APIXABAN 2.5 MG TABLET PO SCH ×2 (08:04→21:20)
[2019-03-16] MEDS: MORPHINE SULFATE 30 MG TABLET.SA PO SCH ×2 (08:11→21:18)
[2019-03-16] MEDS: THIAMINE HCL 100 MG TABLET PO SCH (08:16)
--- NOTE | 2019-03-16 08:17 | NUR ---
MEDICATION PATIENTS SCHEDULED MEDICATION GIVEN PER ORDER. PATIENT COMPLAINS OF PAIN. MEDICATED WITH SCHEDULED MEDICATION EDUCATED PATIENT. PATIENT STATES THE SCHEDULED MEDICATION USUALLY HELPS WITH THE PAIN. PATIENT EDUCATED SEWING INSPECTOR LIGHT FOR ASSISTANCE. CALL LIGHT IS WITH PATIENT. NO OTHER NEEDS WILL CONTINUE TO MONITOR.
--- NOTE | 2019-03-16 09:15 | NUR ---
REASSESSED PAIN Addendum: 03/16/19 at 1033 by Makeda Funk RN PATIENT APPEARS TO BE RESTING WITH BOTH EYES CLOSED NO SIGNS OF ANY DISTRESS, BREATHING IS EQUAL AND NON LABORED. PATIENT HAS CALL LIGHT WITH HIM ALL SAFETY PRECAUTIONS IN PLACE. WILL CONTINUE TO MONITOR.
--- NOTE | 2019-03-16 09:55 | NUR ---
Pt note Attempted to have patient participate with therapy; patient refusing due to shoulder pain, nursing is aware.
--- NOTE | 2019-03-16 11:55 | NUR ---
Dr. Kendall economist research assistant spoke with Dr. Kendall economist research assistant states that saw the patient last night and gave a injection 40mg kenelog to his left shoulder to see if it improves his range of motion in his left shoulder, states Dr. kendall will come to see patient later today and possible more injections to right shoulder. patient as been placed on npo at 1130 from abdominal u/s, called radiology states they will do the u/s between [id number]. patient is aware. all food and water. Addendum: 03/16/19 at 1850 by Makeda Funk RN PATIENT IS REFUSING TURNING
--- NOTE | 2019-03-16 12:00 | NUR ---
DC Planning: Reported CT c-spine result and the pt had steroid injection to left shoulder last evening by dr. Kendall but there is no progress note on file. Per MAJO Ashford dr plans to come in today to give another steroid injection to the rt shoulder and check on range of motion before he can release the pt.
[2019-03-16 12:19] VITALS: BP_SYST 132
--- NOTE | 2019-03-16 13:10 | NUR ---
rn rounding patient is awake and alert laying in bed, patient breathing is equal and non labored. patient has all safety precautions in place. call light is with patient. patient has no complaints at this time. will continue to monitor.
--- NOTE | 2019-03-16 15:00 | NUR ---
ABDOMINAL U/S FINISHED PATIENT FINISHED THE ABDOMINAL U/S REQUESTING CRANBERRY JUICE. JUICE PROVIDED TO PATIENT REQUESTED. PATIENT IS AWAKE AND ALERT NO SIGNS OF ANY DISTRESS, BREATHING IS EQUAL AND NON LABORED. PATIENT DOES NOT WANT TO BE TURNED. CALL LIGHT IS WITH PATIENT EDUCATED TO USE FOR ASSISTANCE. NO OTHER NEEDS AT THIS TIME. WILL CONTINUE TO MONITOR.
[2019-03-16 16:00] VITALS: BP_SYST 135
[2019-03-16] MEDS: PREDNISONE 20 MG TABLET PO SCH (18:28)
[2019-03-16] MEDS: OXYCODONE/ACETAMINOPHEN *10*mg/325 mg TABLET PO PRN (18:29)
--- NOTE | 2019-03-16 18:34 | NUR ---
RN CLOSING NOTE/ PAIN MEDICATION/SCHEDULED MEDICATION PATIENTS SCHEDULED GIVEN ORDERED. PATIENT COMPLAINS OF PAIN MEDICATED FOR PAIN ORDERED. PATIENT IS AWAKE AND ALERT, SITTING UP IN BED PATIENT IS REFUSING TO BE TURN STATES TO MUCH PAIN. PATIENT EDUCATED PROPERTY UNDERWRITER LIGHT , CALL LIGHT IS WITH PATIENT. PATIENT IS ON PHONE WITH FAMILY MEMBER.
--- NOTE | 2019-03-16 19:14 | NUR ---
OPENING NOTES Pt and endorsement received from day shift nurse. Pt is AAox4, lying in bed while eating dinner, ERA Joana was feeding the pt. No complains of pain or discomfort at this time. No signs of acute distress or SOB noted. Encouraged to use call light when needed. Safety precautions in place with 3 side rails up, wheels locked, bed alarm on and in lowest level. Call light with pt. Will continue to monitor.
[2019-03-16 21:11] VITALS: BP_SYST 157
--- NOTE | 2019-03-16 21:20 | NUR ---
MED PASS All due meds given and pt tolerated well. Aspiration precaution maintained with head elevated at 45 degrees. No signs of acute distress noted. Safety precautions in place and call light with pt. Will continue to monitor.
[2019-03-16] MEDS: IBUPROFEN 800 MG TABLET PO SCH (22:03)
--- NOTE | 2019-03-16 22:26 | NUR ---
SPOKE TO DR. ACOSTA Spoke to Dr. Acosta regarding pt complaining of GI upset and was asking for Tums. Dr. Acosta ordered Tums 500mg 2tablets PO Q6 PRN. Read back order and will carry out.
[2019-03-16] MEDS ORDERED: CALCIUM CARBONATE 500 MG/ TAB.CHEW PO PRN (22:30)
--- NOTE | 2019-03-16 23:02 | NUR ---
ROUNDS Encouraged and educated pt to turn, turning done for a while with ERA Bernard to change linen. Pt tolerated well but pt insisted to be back on supine, pt was complaining of pain. Tums 500mg 2tabs PO also given as prescribed. No signs of acute distress noted. Safety precautions in place and call light with pt. Will continue to monitor.
[2019-03-16 23:29] VITALS: BP_SYST 132
[2019-03-16 23:32] VITALS: BP_SYST 151
--- NOTE | 2019-03-17 03:23 | NUR ---
ROUNDS Pt is resting in bed with both eyes closed, with visible chest rise and fall with non-labored breathing noted. No complains of pain and no signs of acute distress noted. Safety precautions in place and call light with pt. Will continue to monitor.
[2019-03-17] MEDS: ceFAZolin SODIUM 1 GM in D5W 50 ML IV SCH ×2 (05:14→13:42)
--- NOTE | 2019-03-17 06:26 | NUR ---
CLOSING NOTES Pt is resting in bed with both eyes closed, with visible chest rise and fall with non-labored breathing noted. No complains of pain at this time. No signs of acute distress or SOB noted. All needs attended throughout the shift. Safety precautions in place with 3 side rails up, wheels locked, bed alarm on and in lowest level. Call light with pt. Will endorse to day shift nurse.
[2019-03-17] MEDS: APIXABAN 2.5 MG TABLET PO SCH (09:47)
[2019-03-17] MEDS: GABAPENTIN 300 MG CAPSULE PO SCH ×2 (09:52→16:15)
[2019-03-17] MEDS: THIAMINE HCL 100 MG TABLET PO SCH (09:52)
[2019-03-17] MEDS: METOPROLOL SUCCINATE 50 MG TAB.SR.24H (TOPROL XL) PO SCH (09:52)
[2019-03-17] MEDS: SOTALOL HCL 80 MG TABLET PO SCH (09:53)
[2019-03-17] MEDS: MORPHINE SULFATE 30 MG TABLET.SA PO SCH (09:53)
[2019-03-17 09:55] VITALS: BP_SYST 155
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
--- NOTE | 2019-03-17 11:58 | NUR ---
Wound Re-Evaluation: Wound Consult ordered for Low Naun Score. Patient re-evaluated for a low Naun score of 16. Patient was awake, alert, oriented and received sitting at the edge of his bed. Patient has a [place] Bed with an IsoFlex TEJA mattress. Patient needs assist to turn in bed secondary to pain. Skin assessment: 1. Left Plantar Foot at First Metatarsal Head: Chronic wound site (from going up and down a ladder that later became infected and developed Osteomyelitis, per patient report). Site has dark discoloration. No odor, no drainage. Site measures 1.0 cm x 2.0 cm. Recommend continue: Cover site with foam dressing for protection. Change dressing and assess site daily, and prn for dressing soiling or dislodgment. 2. Left Plantar Foot at Second Metatarsal Head: Chronic wound site (from going up and down a ladder that later became infected and developed Osteomyelitis, per patient report). Site has a callus with a rough, irregular surface. No odor, no drainage. Hannah-callus intact. Site measures 2.0 cm x 1.4 cm. Recommend continue: [place] site with Betadine. Allow to air dry. Cover site with foam dressing for protection. Change dressing and assess site daily, and prn for dressing soiling or dislodgment. 3. Right Great Toe, Plantar Aspect: Interdigital space fold has dry, flaky skin with black scab. Dry, stable. Recommend: [place] site with Betadine. Perform site care daily. 4. Right Distal Plantar Third Toe: Area of dark discoloration. No odor, no drainage. Recommend: Ho dressing needed. Continue to monitor site qshift. 5. Buttocks: Buttocks and gluteal sulcus area have irregular pattern of dark red erythema. Skin is intact. Recommend: Cleanse involved areas with normal Saline. Pat dry. Apply Moisture barrier cream to involved areas. Perform site care qid and prn for soiling. Recommend continue: Encourage and assist patient as needed with repositioning side to side with pillow wedge pelvic tilt every 2 hours with pillow support. Elevate, off-load and float bilateral heels with pillows. Offload pressure areas with pillows for pressure re-distribution. Perform skin care and monitor skin integrity Q shift. Use moisture barrier cream on moisture susceptible areas QID and PRN for soiling. Maintain patient on low air-loss therapy.
[2019-03-17 12:54] VITALS: BP_SYST 120
[2019-03-17] MEDS: OXYCODONE/ACETAMINOPHEN *10*mg/325 mg TABLET PO PRN (14:19)
--- NOTE | 2019-03-17 15:51 | NUR ---
DC Planning: received new order to [facility], per dr Acosta, he spoke with [facility] admission and the pt is accepted, the pt preferred [facility] over [facility]. Cm confirmed with Олег at [facility]: the pt is accepted and given bed #113 A, RN to report # [phone] bed available after 6 pm >> Booked with TYREL Casarez with [facility] # [phone], roller picker time at 7 pm. -- MAJO tanner aware. Addendum: 03/17/19 at 1617 by Nitish Payne RN DC Package delivered to [facility] unit, ambulance roller picker at 7 pm. MAJO Sainz made aware.
[2019-03-17 16:45] VITALS: BP_SYST 154
--- NOTE | 2019-03-17 18:03 | NUR ---
Report to MAJO Miller, Russell Bright at this time. Ruben Del Rosario RN
[2019-03-17] MEDS: PREDNISONE 20 MG TABLET PO SCH (18:23)
== END 2019-03-17 19:15 | DRG 871 ==
LOC: SED 13:29 → SIC 16:03 → STU 03-04 20:07 → SMU 03-12 14:10
PROVIDERS: ADMIT Family Medicine; ATTEND Family Medicine
DX: A41.9 Sepsis, unspecified organism (principal); E43 Unspecified severe protein-calorie malnutrition; M86.672 Other chronic osteomyelitis, left ankle and foot; I48.0 Paroxysmal atrial fibrillation; I10 Essential (primary) hypertension; G89.4 Chronic pain syndrome; E87.6 Hypokalemia; F10.10 Alcohol abuse, uncomplicated; F32.9 Major depressive disorder, single episode, unspecified; M13.0 Polyarthritis, unspecified; Z96.643 Presence of artificial hip joint, bilateral; F41.9 Anxiety disorder, unspecified; M75.101 Unspecified rotator cuff tear or rupture of right shoulder, not specified as traumatic; K21.9 Gastro-esophageal reflux disease without esophagitis; D64.9 Anemia, unspecified; Z68.31 Body mass index [BMI] 31.0-31.9, adult; Z87.828 Personal history of other (healed) physical injury and trauma; Z79.899 Other long term (current) drug therapy; M50.30 Other cervical disc degeneration, unspecified cervical region
CPT/HCPCS: 36415; 71275; 72040-TC; 72125-TC; 72141; 73221; 73721; 76700-TC; 80048; 80053; 80061; 82085; 82550-TC; 83735-TC; 83880; 84132-TC; 84443-TC; 84484; 85025; 85651-TC; 86140; 87040-TC; 87081; 87086; 87186-TC; 93005; 93306; 93970; 97110-GP; 97116-GP; 97163; 97530-GP; G0378; G0482; J0153; J0690; J2270; J2274; J3411; J3480; J3490; J7050; J7060; J7512; Q9967